=== PATIENT | male | born 1965 | race Caucasian/White ===

== ENCOUNTER 2019-02-26 10:59 | Outpatient (REF) | payer MEDICAID, SELFPAY ==
[2019-02-26 21:53] LABS: ALT 105 U/L (12-78); AST 49 U/L (15-37); Albumin 3.6 g/dL (3.4-5.0); Alkaline Phosphatase 131 U/L (46-116); Anion Gap 10.5 mmol/L (3-11); BUN 11 mg/dL (7-18); Bilirubin, Total 0.9 mg/dL (0.2-1.0); CO2 26.5 mmol/L (21.0-32.0); CREATININE 0.83 mg/dL (0.70-1.30); Calcium 8.3 mg/dL (8.5-10.1); Calculated LDL 94; Chloride 102 mmol/L (98-107); Cholesterol 164 mg/dL (50-200); Glucose 147 mg/dL (70-100); HDL Cholesterol 37 mg/dL (40-60); Potassium 4.4 mmol/L (3.5-5.1); Sodium 139 mmol/L (136-145); Total Protein 6.8 g/dL (6.4-8.2); Triglyceride 168 mg/dL (30-150)
== END 2019-02-26 11:19 ==
LOC: NCHCN 10:59
PROVIDERS: PCP Family Medicine; Visit Provider Family Medicine
DX: R73.09 Other abnormal glucose (principal); I10 Essential (primary) hypertension; E78.5 Hyperlipidemia, unspecified
CPT/HCPCS: 80053; 80061; 83721

== ENCOUNTER 2019-05-22 15:20 | Outpatient (REF) | payer MEDICAID, SELFPAY | END 2019-05-22 15:40 | LOC: NCHCN 15:20 | PROVIDERS: PCP Family Medicine; Visit Provider Family Medicine | DX: L02.429 Furuncle of limb, unspecified (principal) | CPT/HCPCS: 87077; 87070; 87205 ==

== ENCOUNTER 2019-08-02 16:05 | Outpatient (REF) | payer MEDICAID, SELFPAY ==
[2019-08-02 20:55] LABS: Hemoglobin A1C 6.6 % (4.5-6.2)
[2019-08-02 20:56] LABS: ALT 64 U/L (16-63); AST 34 U/L (15-37); Albumin 3.8 g/dL (3.4-5.0); Alkaline Phosphatase 111 U/L (46-116); Anion Gap 9.9 mmol/L (3-11); BUN 11 mg/dL (7-18); Bilirubin, Total 0.5 mg/dL (0.2-1.0); CO2 27.1 mmol/L (21.0-32.0); Calcium 8.6 mg/dL (8.5-10.1); Chloride 101 mmol/L (98-107); Glucose 109 mg/dL (70-100); Potassium 4.7 mmol/L (3.5-5.1); Sodium 138 mmol/L (136-145)
[2019-08-02 21:32] LABS: NT-proBNP 62 pg/mL
[2019-08-06 10:49] LABS: Hepatitis C Ab w Rflx HCV PCR Negative (Negative)
== END 2019-08-02 16:25 ==
LOC: NCHCN 16:05
PROVIDERS: PCP Family Medicine; Visit Provider Family Medicine
DX: R06.09 Other forms of dyspnea (principal); E11.9 Type 2 diabetes mellitus without complications; I10 Essential (primary) hypertension; R79.89 Other specified abnormal findings of blood chemistry
CPT/HCPCS: 80053; 86803; 83036; 83880

== ENCOUNTER 2019-08-23 01:20 | Outpatient (CLI) | payer MEDICAID, SELFPAY ==
--- NOTE | 2019-08-23 14:00 | DI.US_ITS ---
APPROVED REPORT EXAM: Comprehensive 2D, Doppler, and color-flow Echocardiogram Patient Location: Out-Patient Manager Recruitment: Sabrina Aaron [facility] ([place]) Rhythm: NSR Indications: dyspnea on exertion. orthopenea r06.01, r06.09 Conclusion Left Ventricle : The left ventricle is normal. Mild left ventricular hypertrophy with slight sigmoid septum. The posterior wall thickness is mildly increased. Left ventricular systolic function is norm al. There is normal LV segmental wall motion. The left ventricular diastolic function is normal. LVEF is 65-70%. Right Ventricle : Right ventricle is dilated. The right ventricular systolic function is normal. Atria : Left atrium is moderately dilated. Right atrium is mildly dilated. Aortic Valve : Aortic valve is bicuspid but opens well. No aortic regurgitation is present. There is no hemodynamically significant aortic valvular stenosis. Mitral Valve : Mitral valve leaflets are mildly thickened. Trace to mild mitral regurgitation. No beatriz dence of mitral valve stenosis. Tricuspid Valve : The tricuspid valve is normal in structure. Trivial to mild tricuspid regurgitation . Great Vessels : The ascending aorta size is dilated (3.86cm). The IVC is mildly dilated and collapses >50% with inspiration. Estimated RVSP is 27-30 mmHg. There is no prior echocardiogram available for comparison. Wall motion Left Ventricle The left ventricle is normal. Left ventricular systolic function is normal. Mild left ventricular hyp ertrophy with slight sigmoid septum. The posterior wall thickness is mildly increased. There is marlo l LV segmental wall motion. The left ventricular diastolic function is normal. LVEF is 65-70%. Right Ventricle Right ventricle is dilated. The right ventricular systolic function is normal. Atria Left atrium is moderately dilated. Right atrium is mildly dilated. Aortic Valve Aortic valve is bicuspid but opens well. There is no hemodynamically significant aortic valvular sten osis. No aortic regurgitation is present. Mitral Valve Mitral valve leaflets are mildly thickened. No evidence of mitral valve stenosis. Trace to mild maday l regurgitation. Tricuspid Valve The tricuspid valve is normal in structure. Trivial to mild tricuspid regurgitation. Great Vessels The aortic root size is normal. The ascending aorta size is dilated (3.86cm). The IVC is mildly dilat ed and collapses >50% with inspiration. Estimated RVSP is 27-30 mmHg. Pericardium Prominent anterior epicardial fat pad is present. 2D Dimensions IVSd 1.20 cm M: 0.6-1.2 LV EDV A2C 114.60 mL PWd 1.15 cm M: 0.6 - 1.2 LV EDV A4C 94.20 mL LVDd 5.60 cm M: 4.2 - 5.8 LA Volume Index A4C 49.09 mL/m2 LVDs 3.45 cm M: 2.5 - 4.0 LA Area A4C 29.64 cm2 Aortic Root 3.50 cm M: 3.1 - 3.7 EF AP4 62.95 % RA Area A4C 23.27 cm2 EF AP2 72.43 % LVOT 2.05 cm (M/F) 1.5-2.5 EF BP 69.07 % Ascending Aorta 3.86 cm M: 2.6 - 3.4 LVEF (Teich) 67.86 % LVEF (Higgins's) 69.07 % M: 52 - 72 LV Volume 75.80 mL M: 62 - 150 LV Volume Index 31.06 mL/m2 M: 34 - 74 FS 38.25 % LV Diastology E/A Ratio 1.1 MED E' 0.12 (>0.07 m/s) LV E/e MED 6.15 (<14) LAT E' 0.13 (>0.1 m/s) LV E/e LAT 5.90 (<14) Pulm Vein s 0.66 m/s PV S/D Ratio 1.03 Pulm Vein d 0.64 m/s Pulm Vein a 0.29 m/s A-A Duration 132.60 msec Aortic Valve LVOT Area 3.46 cm2 LVOT Peak Partha. 1.75 m/s LVOT Mean Partha. 1.34 m/s LVOT Peak Gr. 12.30 mmHg BERTHA Vmax Index 1.34 cm2/m2 LVOT Mean Gr. 8.00 mmHg LVOT VTI 0.35 m BERTHA Mean Partha. Index 1.40 cm2/m2 AoV Peak Partha. 1.86 (0.5-1.3 m/s) AoV Mean Partha. 1.35 m/s AO Peak GR. 13.81 mmHg AO Mean GR. 8.11 (<5 mmHg) BERTHA (VTI) 3.62 (2.5-4.5 cm2) BERTHA (VTI) Index 1.49 cm/m2 Mitral Valve MV E Max Partha. 0.76 (0.4-1.3 m/s) MV A Velocity 0.70 (0.4-1.3 m/s) E/A Ratio 1.02 MV Decel. Time 206.90 (160-240 msec) MV PHT 60.01 msec MVA PHT 3.65 cm2 Tricuspid Valve TR P. Velocity 2.59 m/s TV Regurg Vmax 2.59 m/s RAP Estimate 8.00 mmHg RVSP 35.00 mmHg TR P. Gradient 26.85 mmHg
== END 2019-08-23 01:40 ==
PROVIDERS: PCP Family Medicine; Visit Provider Family Medicine
DX: R06.01 Orthopnea (principal); R06.09 Other forms of dyspnea; I51.7 Cardiomegaly; I34.0 Nonrheumatic mitral (valve) insufficiency; I10 Essential (primary) hypertension; E78.5 Hyperlipidemia, unspecified
CPT/HCPCS: 93306

== ENCOUNTER 2019-08-24 12:58 | Emergency (ER) | payer MEDICAID, SELFPAY ==
[2019-08-24 13:02] VITALS: BP 151/78; PULSE 71; RESP 16; TEMP 37; O2SAT 95
[2019-08-24 13:07] VITALS: RESP 18
--- NOTE | 2019-08-24 13:57 | W.ED.GENAD ---
Discharge Plan Disposition Patient Disposition: AGAINST MEDICAL ADVICE Discharge Details Chief Complaint: Chest Pain Clinical Impression: Speech abnormality, Chest pain Primary Care Provider: Mojgan Prater V ED Provider: Ameya Ernst Home Meds and New Rx's Prescriptions: No Action cyclobenzaprine 10 mg tablet 10 mg PO BID PRNRF: 0 trazodone 50 mg tablet 100 mg PO QHS PRNRF: 0 bupropion HCl [Wellbutrin SR] 100 mg tablet sustained-release 12 hr 100 mg PO BID RF: 0 gabapentin 300 mg capsule 600 mg PO BID RF: 0 ProAir HFA 90 mcg/actuation HFA aerosol inhaler 2 puff IH .COMPLEX PRNRF: 0 methadone 5 mg/5 mL solution 77 mg PO DAILY RF: 0 venlafaxine 75 MG tablet 75 mg PO DAILY RF: 0 simvastatin 40 MG tablet 40 mg PO DAILY RF: 0 risperidone [Risperdal] 2 MG tablet 2 mg PO .QHS RF: 0 atenolol 50 MG tablet 50 mg PO DAILY RF: 0 tramadol 50 MG tablet 50 mg PO BID PRN PRNQty: 7 RF: 0 Discharge Instructions Instructions: Against Medical Advice (ED) Additional Instructions: Please follow-up with your doctor. Call to schedule timely follow-up as soon as possible. Return to the ER at any time for further work-up and treatment as recommended. Referrals: Mojgan Prater MD [Primary Care Provider] - Medical Decision Making 13:55 --53-year-old male here with intermittent chest pain that occurred 5 days ago and again today. Episodes are brief lasting seconds. Patient also with difficulty with speech since initial episode of chest pain 5 days ago. States his speech is slow. Physical exam concerning for slowed stuttering speech and difficulty with rapid alternating movements. Consider CVA - will CT head. Screening ECG was reviewed and interpreted by me: Sinus rhythm 64 bpm, normal axis, no STEMI, nondiagnostic. I reviewed echocardiogram from yesterday as interpreted by cardiology: Conclusion Left Ventricle : The left ventricle is normal. Mild left ventricular hypertrophy with slight sigmoid septum. The posterior wall thickness is mildly increased. Left ventricular systolic function is normal. There is normal LV segmental wall motion. The left ventricular diastolic function is normal. LVEF is 65-70%. Right Ventricle : Right ventricle is dilated. The right ventricular systolic function is normal. Atria : Left atrium is moderately dilated. Right atrium is mildly dilated. Aortic Valve : Aortic valve is bicuspid but opens well. No aortic regurgitation is present. There is no hemodynamically significant aortic valvular stenosis. Mitral Valve : Mitral valve leaflets are mildly thickened. Trace to mild mitral regurgitation. No evidence of mitral valve stenosis. Tricuspid Valve : The tricuspid valve is normal in structure. Trivial to mild tricuspid regurgitation. Great Vessels : The ascending aorta size is dilated (3.86cm). The IVC is mildly dilated and collapses >50% with inspiration. Estimated RVSP is 27-30 mmHg. There is no prior echocardiogram available for comparison. -- cxr reviewed and interpreted by radiology: IMPRESSION: No acute pulmonary process. -- CT head was interpreted by radiology as no acute process. Labs reviewed and nondiagnostic. Plan for MRI to assess for CVA and admission. Patient agreeable to MRI but refusing admission. MRI could not be completed as result of claustrophobia. Patient wishing to leave AGAINST MEDICAL ADVICE. I had a discussion with the patient about my diagnostic/treatment plan. Patient declines plan and wishes to leave against medical advise. I reiterated my concerns to the patient and explained the risks of leaving prior to completion of workup and treatment. I specifically emphasized the possibility of life-threatening or lifestyle modifying disease that would not be appropriately treated if they leave. Patient verbalized understanding of my concerns and the potential for life threatening or lifestyle modifying disease. Patient has capacity to make informed decision. I again explained my concerns and urged the patient to stay for treatment as outlined. Patient continued to refuse. I then discussed potential less ideal alternatives to diagnostic/treatment plan as outlines and patient refused. I recommended that the patient follow-up with primary care physician DYLAN or return to the Emergency Department at any time for further treatment. HPI General Mode of arrival: ambulatory. Date/Time Provider Initiated Documentation: 08/24/19 13:29. Limitations to Documentation: no limitations. Information obtained by: patient. HPI Narrative: 53-year-old male here with intermittent chest pain that occurred 5 days ago and again today. Episodes are brief lasting seconds. Pain described as sharp and severe. Localized to central chest. He has no pain at this time. No associated leg swelling or calf pain. No shortness of breath. Patient also with difficulty with speech since initial episode of chest pain 5 days ago. States his speech is slow. He denies associated visual change or weakness. No numbness or tingling. Related Data Home Medications Medication Instructions Recorded Confirmed atenolol 50 mg PO DAILY 08/19/13 08/24/19 risperidone [Risperdal] 2 mg PO .QHS 08/19/13 08/24/19 simvastatin 40 mg PO DAILY 08/19/13 08/24/19 venlafaxine 75 mg PO DAILY 08/19/13 08/24/19 tramadol 50 mg PO BID PRN PRN #7 tab 12/29/16 08/24/19 albuterol sulfate 90 mcg/actuation 2 puff IH .COMPLEX PRN 11/08/18 08/24/19 aerosol inhaler bupropion HCl 100 mg tablet,12 hr 100 mg PO BID 11/08/18 08/24/19 sustained-release cyclobenzaprine 10 mg tablet 10 mg PO BID PRN tab 11/08/18 08/24/19 gabapentin 300 mg capsule 600 mg PO BID cap 11/08/18 08/24/19 methadone 5 mg/5 mL oral solution 77 mg PO DAILY ml 11/08/18 08/24/19 trazodone 50 mg tablet 100 mg PO QHS PRN tab 11/08/18 08/24/19 Previous Rx's Medication Instructions Recorded tramadol 50 mg PO BID PRN PRN #7 tab 12/29/16 Allergies Allergy/AdvReac Type Severity Reaction Status Date / Time mustard Allergy Severe Unverified 08/24/19 13:08 pregabalin [From Lyrica] Allergy Severe Unverified 08/24/19 13:08 hydrocodone AdvReac Intermediate Unverified 08/24/19 13:08 codeine AdvReac Nausea Unverified 08/24/19 13:08 tramadol AdvReac Nausea Unverified 08/24/19 13:08 General Stated Complaint: Chest Pain ELKE: 2 Review of Systems All systems reviewed & are unremarkable except as noted in HPI and below Constitutional Constitutional: Denies fever(s) Cardiovascular Cardiovascular: Reports as per HPI, Reports chest pain and Denies dyspnea Respiratory Respiratory: Denies dyspnea Gastrointestinal Gastrointestinal: Denies abdominal pain Neurologic Neurologic: Reports as per HPI [facility] Medical History Anxiety (Chronic) Cervicalgia (Acute) Encounter for smoking cessation counseling (Acute) Gingivitis (Acute) HTN (hypertension) (Chronic) Hyperlipidemia (Acute) Obesity (Chronic) Other injury of chest wall (Acute) Panic disorder (Acute) Preventative health care (Acute) PTSD (post-traumatic stress disorder) (Acute) Radiculopathy affecting upper extremity (Acute) Repetitive strain injury of shoulder (Acute) Spinal cord injuries (Acute) Substance abuse (Acute) Social History Smoking/Tobacco Use Status: Current every day Drug use: Occasionally Do you feel safe at home: Yes Do you feel safe in your relationship?: Yes Exam Const General: cooperative and no acute distress HENMT Head: normocephalic Mouth: moist mucous membranes Eyes Conjunctivae: normal conjunctivae EOM: EOM intact bilaterally Neck Neck: trachea midline and supple Resp Auscultation: clear to auscultation bilaterally, no rales, no rhonchi and no wheezes Cardio Jugular venous pressure: no JVD Rate: regular rate and not tachycardic Rhythm: regular rhythm GI Palpation: soft, not firm, no guarding, no masses, not rigid and nontender Skin General skin exam: no rashes or lesions noted Neuro General: alert, awake, oriented x3 and tone normal Cranial Nerves: CN's II-XI intact bilaterally Cognition: normal cognition Speech: abnormal speech (Slow with mild stuttering) Motor: muscle tone normal throughout and strength 5/5 throughout Sensory Exam: no sensory deficits noted Coordination: [id number] test normal and other (Rapid alternating movements slow) Extrem General: no calf tenderness and no edema Psych Mental Status: mental status grossly normal Speech and Movement: speech and movement normal Course Vital Signs Vital signs: Vital Signs Temperature 37.0 C 08/24/19 13:02 Pulse 71 08/24/19 13:02 Respiratory Rate 16 08/24/19 13:02 Blood Pressure 151/78 H 08/24/19 13:02 Pulse Oximetry 95 08/24/19 13:02 Temperature 37.0 C 08/24/19 13:02 Temperature Source Temporal Artery Scan 08/24/19 13:02 Pulse 71 08/24/19 13:02 Respiratory Rate 18 08/24/19 13:07 Respiratory Effort Non-Labored 08/24/19 13:07 Respiratory Depth Normal 08/24/19 13:07 Respiratory Pattern Normal 08/24/19 13:07 Blood Pressure 151/78 H 08/24/19 13:02 Blood Pressure Position Sitting 08/24/19 13:02 Pulse Oximetry 95 08/24/19 13:02 Oxygen Delivery Method Room Air 08/24/19 13:02 Oxygen Flow Rate 0 08/24/19 13:02 Pain Level 0 08/24/19 13:02
[2019-08-24 13:58] LABS: Abs Immature Grans 0.02 k/cumm (0.0-0.09); Absolute Basophil Count 0.04 k/cumm (0.0-0.2); Absolute Eosinophil Count 0.23 k/cumm (0.0-0.7); Absolute Lymphocyte Count 1.98 k/cumm (1.2-3.4); Absolute Monocyte Count 0.59 k/cumm (0.11-0.7); Absolute Neutrophil Count 7.11 k/cumm (1.2-6.7); Basophils % 0.4; Eosinophils % 2.3; HCT 52.1 % (40.0-50.0); HGB 17.1 g/dL (13.5-17.5); Immature Grans % 0.2; Lymphocytes % 19.9; Mean Corp. HGB Concentration 32.8 g/dL (32.0-36.0); Mean Corpuscular Hemoglobin 25.9 pg (27.0-33.0); Mean Corpuscular Volume 78.9 fL (80-95); Monocytes % 5.9; Neutrophils % 71.3; White Blood Cell Count 9.97 k/cumm (4.4-10.8)
--- NOTE | 2019-08-24 13:58 | DI.CT_ITS ---
EXAM: CT HEAD - STROKE PROTOCOL CLINICAL HISTORY: speech slowed, difficulty with rapid alt movements TECHNIQUE: Noncontrast COMPARISON: HEAD WITHOUT CONTRAST from 08/19/2013 FINDINGS: The ventricles and sulci are consistent with the patient's age. There are areas of decreased attenua tion in the white matter most suggestive of small vessel ischemic disease. No acute intracranial hem orrhage, midline shift or mass effect is present. The ventricles are intact. The basilar cisterns a re patent. There is mild mucosal thickening in the ethmoid air cells and maxillary sinuses. No flui d levels are seen. The mastoid air cells are well pneumatized. The calvarium is intact. IMPRESSION: No acute intracranial process. The findings were discussed with the Emergency Department on the date of the examination.
[2019-08-24 14:10] LABS: Diff Comment RBC Morph Reviewed; Platelet Count 183 x1000/uL (130-400)
[2019-08-24 14:11] LABS: Microcytosis 3+
--- NOTE | 2019-08-24 14:23 | DI.RAD_ITS ---
EXAM: XR CHEST 2V PA AND LATERAL INDICATION: chest pain. COMPARISON: CHEST 2 VIEWS PA,LAT from 07/18/2015 TECHNIQUE: 2D digital imaging was performed. FINDINGS: Heart size and pulmonary vasculature are within normal limits. The lungs are clear. No effusion or pneumothorax is identified. Degenerative changes are seen in the spine. Cervical spine surgery is n oted. IMPRESSION: No acute pulmonary process.
[2019-08-24 14:44] LABS: ALT 64 U/L (16-63); AST 32 U/L (15-37); Albumin 3.8 g/dL (3.4-5.0); Alkaline Phosphatase 119 U/L (46-116); Anion Gap 8.8 mmol/L (3-11); BUN 9 mg/dL (7-18); Bilirubin, Total 0.6 mg/dL (0.2-1.0); CO2 31.2 mmol/L (21.0-32.0); CREATININE 0.95 mg/dL (0.70-1.30); Calcium 8.8 mg/dL (8.5-10.1); Chloride 101 mmol/L (98-107); Glucose 171 mg/dL (74-106); Potassium 4.1 mmol/L (3.5-5.1); Sodium 141 mmol/L (136-145); Total Protein 7.9 g/dL (6.4-8.2)
[2019-08-24 14:45] LABS: Troponin I < 0.05 ng/Ml (<0.06)
--- NOTE | 2019-08-24 16:56 | DI.MRI_ITS ---
EXAM: MR LIMITED EXAM CLINICAL HISTORY: concern for cva, speech slowed. TECHNIQUE: A T2 sagittal sequence was performed. The patient was claustrophobic and could not clifton ate further imaging. COMPARISON: CT HEAD - STROKE PROTOCOL from 08/24/2019 FINDINGS: There is no gross evidence of a mass or acute infarct. There is mild atrophy and small foci of high signal in the white matter likely reflecting changes of microvascular disease. The orbits, pituitar y and mastoid air cells are unremarkable. There is minimal sinus mucosal thickening. The vascular f low voids are grossly intact. IMPRESSION: Limited exam. No acute abnormality is identified.
--- NOTE | 2019-08-24 18:33 | DI.VRAD_ITS ---
PROCEDURE INFORMATION: Exam: MR Head Without Contrast Exam date and time: 08/24/2019 5:56 PM Age: 53 years old Clinical history: Speech disturbance; Slurred speech; Additional info: PT only tolerated one sequence due to claustrophobia TECHNIQUE: Imaging protocol: MR of the head without contrast. COMPARISON: CT HEAD - STROKE PROTOCOL 08/24/2019 1:58 PM FINDINGS: Limitations: The study is limited due to incomplete examination from claustrophobia. Only sagittal T2 images were obtained. Brain: Evaluation of the sagittal T2 images demonstrate no gross abnormality, however this sequence does not fully evaluate for acute infarct. No large intracranial hemorrhage is seen. Ventricles: No definite ventriculomegaly. Bones/joints: Unremarkable. Soft tissues: Unremarkable. Sinuses: Normal as visualized. No acute sinusitis. Mastoid air cells: Normal as visualized. No mastoid effusion. Orbits: Unremarkable. IMPRESSION: Limited examination with only one sequence performed. No gross abnormalities seen, however cannot fully evaluate for acute infarct on this study. If there is further clinical concern a repeat study is recommended with appropriate sedation. Dictated and Authenticated by: Meli Yo MD. Ordering:LIZETTE Hou MD
== END 2019-08-24 17:35 | disposition left against medical advice (07) ==
PROVIDERS: Emergency Provider Student in an Organized Health Care Education/Training Program; PCP Family Medicine
DX: R07.9 Chest pain, unspecified (principal); R47.89 Other speech disturbances; Z53.29 Procedure and treatment not carried out because of patient's decision for other reasons; I10 Essential (primary) hypertension
CPT/HCPCS: 36415; 36416; 72141; 72146; 72148; 80053; 82962; 93005; 99285; 70450; 71046; 84484; 85025; 93010; 99284

== ENCOUNTER 2021-05-14 10:27 | Outpatient (CLI) | payer MEDICAID, SELFPAY ==
--- NOTE | 2021-05-14 10:15 | RT.EKG_ITS ---
APPROVED REPORT Exam: Resting ECG Reason for Exam: pain across R side chest- SOB, diaphoretic Patient Location: O HR:85 bpm ECG Measurements Heart Rate 85 AXIS AK 141 P 60 QRSd 84 QRS 46 QT 383 T 63 QTc 456 Conclusion Sinus rhythm...normal P axis, V-rate 60- 99 Supraventricular bigeminy...bigeminy string>4 w/ SV complexes
== END 2021-05-14 10:28 | disposition home or self-care (01) ==
LOC: DI.CM 10:28
PROVIDERS: PCP Family Medicine; Visit Provider Nurse Practitioner Family
DX: R07.89 Other chest pain (principal); R06.02 Shortness of breath; R61 Generalized hyperhidrosis
CPT/HCPCS: 93010

== ENCOUNTER 2021-05-14 11:14 | Inpatient (IN) | payer MEDICAID, SELFPAY ==
[2021-05-14] VITALS (38 sets, daily range): BP systolic 132–157; BP diastolic 67–117; PULSE 54–96; RESP 12–27; TEMP 36.4–36.7; O2SAT 82–99
--- NOTE | 2021-05-14 11:15 | RT.EKG_ITS ---
APPROVED REPORT Exam: Resting ECG Reason for Exam: chest pain Patient Location: E HR:90 bpm ECG Measurements Heart Rate 90 AXIS TN 144 P 53 QRSd 84 QRS 35 QT 382 T 62 QTc 467 Conclusion Sinus rhythm...normal P axis, V-rate 60- 99 Atrial premature complexes...SV complexes w/ short R-R intvls
--- NOTE | 2021-05-14 11:17 | DI.CT_ITS ---
Exam(s) CT CHEST W EXAM: CT CHEST W CLINICAL HISTORY: rt chest mass, productive cough. TECHNIQUE: Multi planar reconstructions were performed. CONTRAST MATERIAL: Omnipaque 350; 70 cc COMPARISON: No exams were available for comparison FINDINGS: CHEST: LUNGS: There is a noncalcified well-defined 7 x 6 millimeter subpleural nodule in the lateral basal s egment of the right lower lobe. Few small bullae are noted in the medial aspect of the right upper l obe. No other focal right lung findings. No pleural effusion. In the opposite-left lung there are no significant focal findings nor pleural effusion. No significant findings in the trachea and mainstem bronchi. No bronchiectasis MEDIASTINUM: There is no hilar nor mediastinal adenopathy. Visualized thyroid unremarkable.Few shoddy lymph nodes are noted in both axillary regions. CARDIAC: Heart size is normal. There is no pericardial effusion.Caliber of the thoracic aorta is wit hin normal limits. VISUALIZED UPPER ABDOMEN:There are no significant adrenal masses. Hepatic steatosis is noted. Also cholelithiasis (no acute cholecystitis). OTHER: There is bilateral gynecomastia. There is also subcutaneous streaking over the anterior and r ight chest wall and there is deep collection subjacent to this area anterior to the ribs which measur es approximately 14 cm wide by 10 cm craniocaudal by 2.3 cm thick. Does not contain gas. Probable h ematoma. There is no radiopaque foreign body in this region. No prominent asymmetric axillary adeno swathi. OSSEOUS: No obvious rib fractures. Hardware noted in the lower cervical spine in the lower cervical spine.. IMPRESSION: 1. Over the anterior right chest wall there is a large deep collection measuring approximately 14 cm wide by 10 cm craniocaudal by 2.3 cm thick, probably hematoma. There is abundant streaking in the ov erlying soft tissues-probable cellulitis pattern. There is no radiopaque foreign body 2. Bilateral gynecomastia. 3. There is a solitary 7 x 6 millimeter noncalcified subpleural nodule in the right lower lobe-latera l basal segment. No other lung nodules and no infiltrates nor pleural effusions. No pneumothorax. Follow-up CT scan in 6 months recommended for the nodule described above in the right lower lobe. No intrathoracic adenopathy. RADIATION DOSE DELIVERED: 888.47mGy.cm Total DLP DATA REPOSITORY: All CT scans at this facility are submitted to the National Radiology Data Registry (NRDR) Dose Index Registry (DIR) with the [employer] ([employer]). RADIATION OPTIMIZATION: All CT scans at this facility use at least one of these dose optimization te chniques: automated exposure control; mA and/or kV adjustment per patient size (includes targeted exa ms where dose is matched to clinical indication); or iterative reconstruction.
[2021-05-14 11:43] LABS: Source Nasal/Nares
[2021-05-14] MEDS: Methadone Liquid 10 MG/ML 100 MG PO (12:01)
[2021-05-14] MEDS: Normal Saline Flush 10 ML SYR IVP ×3 (12:02→21:18)
[2021-05-14 12:17] LABS: Abs Immature Grans 0.12 10^3/uL (0.0-0.06); HCT 50.2 % (40.0-50.0); HGB 16.7 g/dL (13.5-17.5); MCH 25.3 pg (27.0-33.0); MCHC 33.3 % (32.0-36.0); MCV 75.9 fL (80-95); MPV 10.6 fL (8.0-11.0); Nucleated RBC 0 %; Platelet Count 259 10^3/uL (130-400); RBC 6.61 10^6/uL (4.36-5.78); RDW 13.1 % (11.8-14.1); RDW-SD 35.1 fL
[2021-05-14] MEDS: ALPRAZolam 0.25 MG TAB PO (12:21)
[2021-05-14] MEDS: Lactated Ringers 1,000 ML 150 ML IV (12:22)
[2021-05-14 12:30] LABS: ALT 27 U/L (16-63); AST 14 U/L (15-37); Albumin 3.2 g/dL (3.4-5.0); Alkaline Phosphatase 111 U/L (46-116); Anion Gap 6.6 mmol/L (3-11); BUN 9 mg/dL (7-18); Bilirubin, Total 1.5 mg/dL (0.2-1.0); CO2 29.4 mmol/L (21.0-32.0); Chloride 100 mmol/L (98-107); Glucose 188 mg/dL (74-106); Potassium 4.2 mmol/L (3.5-5.1); Sodium 136 mmol/L (136-145); Total Protein 7.9 g/dL (6.4-8.2)
[2021-05-14 12:31] LABS: Absolute Neutrophil Count 19.52 10^3/uL (1.2-6.7); Troponin I < 0.05 ng/mL (<0.06)
[2021-05-14 12:32] LABS: Absolute Lymphocyte Count 1.82 10^3/uL (1.2-3.4); Absolute Monocyte Count 1.36 10^3/uL (0.1-0.8); Atypical Lymphocytes % 2; Diff Comment Manual Differential; Microcytosis 3+
[2021-05-14 12:33] LABS: Hypochromasia 1+
[2021-05-14 12:46] LABS: COVID-19 PCR Negative (Negative)
[2021-05-14] MEDS: Omnipaque 350 MG/ML 100 ML BTL 70 ML IV (12:46)
[2021-05-14] MEDS: ceFAZolin 2 GM/50 ML BAG IVPB (13:53)
--- NOTE | 2021-05-14 13:53 | ED.GENADUL_ITS ---
Discharge Plan Disposition Patient Disposition: [facility] INPATIENT Condition: Serious Discharge Details Clinical Impression: Cellulitis of chest wall, Abscess Admit Date/Time: 05/14/21 13:52 Admit Provider: Brianda Stack Attending Provider: Brianda Stack Primary Care Provider: Mojgan Prater V ED Provider: Ameya Ernst Discharge Data Discharge Date/Time-TO BE ENTERED AT DEPARTURE: 05/14/21 15:05 Medical Decision Making 55-year-old male presents with 4 days of right anterior chest pain, tender with induration or subcutaneous collection under area of erythema right chest. Erythema is extended beyond the borders drawn by urgent care just prior to arrival. Concern for anterior chest wall cellulitis versus deeper space infection. Patient also with abscess right lateral face that is draining. Patient has also had recent productive cough. He is saturating well with no respiratory distress. Labs reviewed and reveal significant leukocytosis. CT of the chest was reviewed interpreted by radiology:IMPRESSION: 1. Over the anterior right chest wall there is a large deep collection measuring approximately 14 cm wide by 10 cm craniocaudal by 2.3 cm thick, probably hematoma. There is abundant streaking in the overlying soft tissues-probable cellulitis pattern. There is no radiopaque foreign body 2. Bilateral gynecomastia. 3. There is a solitary 7 x 6 millimeter noncalcified subpleural nodule in the right lower lobe-lateral basal segment. No other lung nodules and no infiltrates nor pleural effusions. No pneumothorax. Follow-up CT scan in 6 months recommended for the nodule described above in the right lower lobe. No intrathoracic adenopathy. Plan to treat with vancomycin IV and cefazolin IV. I called and spoke with Dr. Stack who will assess the patient for potential need for surgical intervention and admission for IV antibiotics. Patient had not had his prescribed methadone today or yes. Methadone 100 mg as prescribed was administered. Lab Data Lab results reviewed: Yes I reviewed the patient's lab results. HPI General Mode of arrival: ambulatory . Date/Time Provider Initiated Documentation: 05/14/21 11:16 . Limitations to Documentation: no limitations . Information obtained by: patient . HPI Narrative: 55-year-old male with multiple medical problems presents with chief complaint of right anterior chest pain. Patient states that for the past 4 days he has had right chest pain with associated swelling. Pain worse on palpation. He denies trauma. He has had r ecent coughing over the past week that is intermittently productive of sosa sputum. He also notes some swelling right face. No associated fever. Related Data Home Medications Medication Instructions Recorded Confirmed atenolol 50 mg PO DAILY 08/19/13 05/14/21 risperidone [Risperdal] 2 mg PO HS 08/19/13 05/14/21 albuterol sulfate 90 mcg/actuation 2 puff IH .COMPLEX PRN 11/08/18 05/14/21 aerosol inhaler cyclobenzaprine 10 mg tablet 10 mg PO BID PRN PRN tab 11/08/18 05/14/21 gabapentin 300 mg capsule 900 mg PO BID cap 11/08/18 05/14/21 trazodone 50 mg tablet 50 - 100 mg PO HS PRN PRN tab 11/08/18 05/14/21 [facility] Verio test strips 05/14/21 05/14/21 atorvastatin 40 mg PO DAILY 05/14/21 05/14/21 blood-glucose meter [[facility] 05/14/21 05/14/21 UltraMini] hydrochlorothiazide 25 mg PO DAILY 05/14/21 05/14/21 lancets [[employer] UltraSoft 05/14/21 05/14/21 Lancets] metformin 500 mg PO DAILY 05/14/21 05/14/21 methadone 5 mg/5 mL oral solution 100 mg PO DAILY ml 05/14/21 05/14/21 venlafaxine 150 mg PO DAILY 05/14/21 05/14/21 famotidine 40 mg PO HS #30 tab 05/17/21 oxycodone 5 mg tablet 10 mg PO Q6H PRN #20 tab MDD 8 05/17/21 tabs a day sulfamethoxazole-trimethoprim 1 tab PO Q12H #24 tab 05/17/21 [Bactrim DS] Previous Rx's Medication Instructions Recorded famotidine 40 mg PO HS #30 tab 05/17/21 oxycodone 5 mg tablet 10 mg PO Q6H PRN #20 tab MDD 8 05/17/21 tabs a day sulfamethoxazole-trimethoprim 1 tab PO Q12H #24 tab 05/17/21 [Bactrim DS] Allergies Allergy/AdvReac Type Severity Reaction Status Date / Time mustard Allergy Severe Unverified 05/14/21 10:09 pregabalin [From Lyrica] Allergy Severe Unverified 05/14/21 10:09 venom-wasp Allergy Intermediate Verified 05/14/21 10:09 hydrocodone AdvReac Intermediate upset Unverified 05/14/21 10:11 stomach codeine AdvReac Nausea Unverified 05/14/21 10:09 tramadol AdvReac Nausea Unverified 05/14/21 10:09 General Stated Complaint: GenMedical ELKE: 2 Review of Systems All systems reviewed & are unremarkable except as noted in HPI and below Constitutional Constitutional: Denies fever(s) Integumentary/Breasts Skin/Breast: Reports as per HPI [facility] Medical History Anxiety Cervicalgia Encounter for smoking cessation counseling Gingivitis HTN (hypertension) Hyperlipidemia Obesity Other injury of chest wall Panic disorder Preventative health care PTSD (post-traumatic stress disorder) Radiculopathy affecting upper extremity Repetitive strain injury of shoulder Spinal cord injuries Substance abuse Social History Smoking/Tobacco Use Status: Current every day Smoking risk assessment performed?: Yes Alcohol Intake: former Drug use: Occasionally Substance use type: marijuana and crack/cocaine Details: crack--2 days ago-smoked Do you feel safe at home: Yes Do you feel safe in your relationship?: Yes Exam Const General: cooperative and no acute distress HENMT Head: normocephalic and atraumatic Mouth: moist mucous membranes Eyes Conjunctivae: normal conjunctivae Sclera: normal sclerae Neck Neck: trachea midline and supple Chest Chest: no crepitus and tenderness (Right anterior lateral chest) Resp Auscultation: clear to auscultation bilaterally, no rales, no rhonchi and no wheezes Cardio Jugular venous pressure: no JVD Rate: regular rate and not tachycardic Rhythm: regular rhythm GI Palpation: soft, not firm, no guarding, no masses, not rigid and nontender Skin Rashes: rashes noted (Right anterior chest erythema outlined by urgent care) Other: 2 cm draining abscess right face pre-auricular Neuro General: patient alert, patient awake, patient oriented x3 and tone normal Extrem General: no edema Psych Appearance: grossly normal Mental Status: mental status grossly normal Course Vital Signs Vital signs: Vital Signs Temperature 36.7 C 05/14/21 11:25 Pulse 91 H 05/14/21 11:25 Respiratory Rate 22 05/14/21 11:25 Blood Pressure 157/79 H 05/14/21 11:25 Pulse Oximetry 98 05/14/21 11:25 Temperature 36.7 C 05/14/21 11:25 Temperature Source Temporal Artery Scan 05/14/21 11:25 Pulse 72 05/14/21 12:46 Pulse 73 05/14/21 13:40 Respiratory Rate 16 05/14/21 13:40 Respiratory Effort Non-Labored 05/14/21 11:38 Respiratory Depth Normal 05/14/21 11:38 Respiratory Pattern Normal 05/14/21 11:38 Blood Pressure 145/117 H 05/14/21 12:46 Blood Pressure Mean 123 05/14/21 12:46 Blood Pressure Position Supine 05/14/21 11:25 Pulse Oximetry 96 05/14/21 13:40 Oxygen Delivery Method Room Air 05/14/21 11:25 Oxygen Flow Rate 0 05/14/21 11:25 Pain Level 7 05/14/21 11:25 Lab/Test Results Lab/Test Results: Laboratory Tests Range/Units 05/14/21 05/14/21 05/14/21 11:40 12:00 12:00 WBC (4.4-10.8) 10^3/uL 22.70 H RBC (4.36-5.78) 10^6/uL 6.61 H Hgb (13.5-17.5) g/dL 16.7 Hct (40.0-50.0) % 50.2 H MCV (80-95) fL 75.9 L MCH (27.0-33.0) pg 25.3 L MCHC (32.0-36.0) % 33.3 RDW (11.8-14.1) % 13.1 Plt Count (130-400) 10^3/uL 259 MPV (8.0-11.0) fL 10.6 Immature Gran % 0.0 Neutrophils % 86.0 Lymphocytes % 6.0 Atypical Lymphs % 2 Monocytes % 6.0 Eosinophils % 0.0 Basophils % 0.0 Nucleated RBC % % 0 Absolute Neutrophils (1.2-6.7) 10^3/uL 19.52 H Absolute Lymphocytes (1.2-3.4) 10^3/uL 1.82 Absolute Monocytes (0.1-0.8) 10^3/uL 1.36 H Absolute Eosinophils (0.0-0.7) 10^3/uL 0.00 Absolute Basophils (0.0-0.2) 10^3/uL 0.00 RBC Morphology See Below Hypochromasia 1+ Microcytosis 3+ Sodium (136-145) mmol/L 136 Potassium (3.5-5.1) mmol/L 4.2 Chloride (98-107) mmol/L 100 Carbon Dioxide (21.0-32.0) mmol/L 29.4 Anion Gap (3-11) mmol/L 6.6 BUN (7-18) mg/dL 9 Creatinine (0.70-1.30) mg/dL 1.0 Estimated GFR/1.73 m2 (mL/min/1.73m2) >= 60.00 Glucose (74-106) mg/dL 188 H Calcium (8.5-10.1) mg/dL 9.0 Total Bilirubin (0.2-1.0) mg/dL 1.5 H AST (15-37) U/L 14 L ALT (16-63) U/L 27 Alkaline Phosphatase (46-116) U/L 111 Troponin I (<0.06) ng/mL < 0.05 Total Protein (6.4-8.2) g/dL 7.9 Albumin (3.4-5.0) g/dL 3.2 L COVID-19 Source Nasal/Nares SARS-CoV-2 (PCR) (Negative) Negative
[2021-05-14] MEDS: VANCOMYCIN/WATER (PEG) 2 GM/400 ML BAG IVPB (14:34)
[2021-05-14 15:24] LABS: C-Reactive Protein 17.26 mg/dL (0.0-0.3)
[2021-05-14] MEDS: Normal Saline 1,000 ML 100 ML IV (16:50)
[2021-05-14] MEDS: Acetaminophen 500 MG TAB 1000 MG PO ×2 (17:29→23:44)
[2021-05-14] MEDS: Enoxaparin 40 MG/0.4 ML SYR SC (18:00)
--- NOTE | 2021-05-14 20:54 | W.PM.HP.N ---
Date of service: 05/14/21 Time of Service: 16:00 Assessment and Plan Assessment and plan (1) Type II diabetes mellitus: Status: Acute (2) PTSD (post-traumatic stress disorder): Status: Acute (3) Radiculopathy affecting upper extremity: Status: Acute (4) Substance abuse: Status: Acute (5) Hyperlipidemia: Status: Acute (6) HTN (hypertension): Status: Chronic (7) CVA (cerebrovascular accident): Status: Chronic (8) Cellulitis of chest wall: Status: Acute (9) Community acquired pneumonia: Status: Acute (10) S/P shoulder replacement: Status: Acute (11) S/P cervical spinal fusion: Status: Acute (12) Infected hematoma: Status: Acute Assessment and plan: -Patient is admitted for IV antibiotics. -He will need to go for incision and drainage. Informed consent is obtained explaining risks and benefits of procedure including but not limited to: Bleeding, infection, pneumonia, blood clots, complications from anesthesia including IL and CVA. We will need to heal by secondary intent. He will have a wound VAC. It will be quite a large scar. -I do not have an etiology for why the patient has developed this. Although he has limited memory of the past 48 hours. -CT scan does not show any signs of pneumo Monia. The sputum may simply have been from bronchial irritation from 48 hours of smoking crack cocaine. -A control of his diabetes -Supportive care -Patient has chronic pain issues and is going to probably have issues with pain control. History of Present Illness His Covid test was negative his Covid test was negative Narrative: 55-year-old male with multiple medical problems presents with chief complaint of right anterior chest pain. Patient states that for the past 4 days he has had right chest pain with associated swelling. Pain worse on palpation. He denies trauma. He has had recent coughing over the past week that is intermittently productive of sosa sputum. He also notes some swelling right face. No associated fever Patient has been smoking crack for the past 48 hours. He has not taken any of his medications in the past 48 hours. He says he did not fall and denies any trauma. But, he does not have real good recollection of the past 48 hours. He does not drugs. He is not on any blood thinners. He is not on aspirin daily or does not take excessive amount of NSAIDs. CT was done in the ER and reviewed. In light of the acute infection this fluid collection will need to be drained. Risks include bleeding, infection, pneumonia, blood clots, and will be large scar. He will need to wear wound VAC. He also has associated pneumonia which we are treating with IV antibiotics. He has risk factors for MRSA, although he has never had MRSA in the past. He has had no problems with anesthesia in the past. He smokes requires a pack a day. Occasionally smokes crack. He had a stroke 2 years ago but has no residual symptoms. He has not had a heart attack. He is diabetic and hypertensive and has chronic pain syndrome. He also has a history of EtOH abuse. His Covid test was negative I did personally review his chest x-ray. There is a 12 x 14 cm fluid collection. There is no signs of any pneumonia. He does have signs of COPD. Review of Systems All systems reviewed & are unremarkable except as noted in HPI and below Integumentary/Breasts Comments: Erythema and tenderness over right lower chest right upper quadrant Multiple scars on his left arm and chest from a chainsaw accident Multiple wounds on his right neck. Patient is uncertain what these are from. They could be dang or they could be insect bites that were scratched [facility] Medical History Anxiety Cervicalgia Encounter for smoking cessation counseling Gingivitis HTN (hypertension) Hyperlipidemia Obesity Other injury of chest wall Panic disorder Preventative health care PTSD (post-traumatic stress disorder) Radiculopathy affecting upper extremity Repetitive strain injury of shoulder Spinal cord injuries Substance abuse Social History Smoking/Tobacco Use Status: Current every day Smoking risk assessment performed?: Yes Alcohol Intake: former Drug use: Occasionally Substance use type: marijuana and crack/cocaine Details: crack--2 days ago-smoked Do you feel safe at home: Yes Do you feel safe in your relationship?: Yes Meds Allergies and Home Medications Allergies Allergy/AdvReac Type Severity Reaction Status Date / Time mustard Allergy Severe Unverified 05/14/21 10:09 pregabalin [From Lyrica] Allergy Severe Unverified 05/14/21 10:09 venom-wasp Allergy Intermediate Verified 05/14/21 10:09 hydrocodone AdvReac Intermediate upset Unverified 05/14/21 10:11 stomach codeine AdvReac Nausea Unverified 05/14/21 10:09 tramadol AdvReac Nausea Unverified 05/14/21 10:09 Home Medications Medication Instructions Recorded Confirmed Type atenolol 50 mg PO DAILY 08/19/13 05/14/21 History risperidone [Risperdal] 2 mg PO HS 08/19/13 05/14/21 History albuterol sulfate 90 mcg/actuation 2 puff IH .COMPLEX PRN 11/08/18 05/14/21 History aerosol inhaler cyclobenzaprine 10 mg tablet 10 mg PO BID PRN PRN tab 11/08/18 05/14/21 History gabapentin 300 mg capsule 900 mg PO BID cap 11/08/18 05/14/21 History trazodone 50 mg tablet 50 - 100 mg PO HS PRN PRN tab 11/08/18 05/14/21 History atorvastatin 40 mg PO DAILY 05/14/21 05/14/21 [facility] blood [facility] 05/[facility] 05/14/21 History Verio test strips] [facility]glucose [facility] 05/14/21 05/14/21 History UltraMini] hydrochlorothiazide 25 mg PO DAILY 05/14/21 05/14/21 History lancets [facility] 05/14/21 05/14/21 History Lancets] metformin 500 mg PO DAILY 05/14/21 05/14/21 History methadone 5 mg/5 mL oral solution 100 mg PO DAILY ml 05/14/21 05/14/21 History venlafaxine 150 mg PO DAILY 05/14/21 05/14/21 History Exam Const General: cooperative, no acute distress and disheveled Orientation: alert, awake and oriented x3 Other: Appears much older than his stated age [facility] Ears: hearing grossly normal bilaterally General nose exam: external nose normal Teeth and gingiva: poor dentition Eyes Other: No jaundice Neck Other: Multiple open pustules. Patient denies shooting drugs. He is very needle phobic. Patient says he has never had MRSA. They look to be swollen ulcerated lymph nodes. A culture is to. Neck images: 1. Multiple open pustules Resp Effort & Inspection: normal respiratory effort and able to speak in complete sentences Percussion: percussion normal Other: Patient has a productive cough. This is cultured. There is no wheeze or rhonchi Cardio Rate: regular rate Rhythm: regular rhythm GI Palpation: soft Auscultation: normal bowel sounds Abdomen image: 1. Irregular shaped area of redness and swelling. There is no crepitus. It is tender. There is no open draining areas on the abdomen Extrem General: no clubbing, cyanosis or edema Other: Changes consistent with osteoarthritis in his large joints Results Labs Result diagrams: 05/14/21 12:00 05/14/21 12:00 Labs: Laboratory Results - last 24 hr 05/14/21 05/14/21 05/14/21 11:40 12:00 12:00 WBC 22.70 H RBC 6.61 H Hgb 16.7 Hct 50.2 H MCV 75.9 L MCH 25.3 L MCHC 33.3 RDW 13.1 Plt Count 259 MPV 10.6 Immature Gran % 0.0 Neutrophils % 86.0 Lymphocytes % 6.0 Atypical Lymphs % 2 Monocytes % 6.0 Eosinophils % 0.0 Basophils % 0.0 Nucleated RBC % 0 Absolute Neutrophils 19.52 H Absolute Lymphocytes 1.82 Absolute Monocytes 1.36 H Absolute Eosinophils 0.00 Absolute Basophils 0.00 RBC Morphology See Below Hypochromasia 1+ Microcytosis 3+ Sodium 136 Potassium 4.2 Chloride 100 Carbon Dioxide 29.4 Anion Gap 6.6 BUN 9 Creatinine 1.0 Estimated GFR/1.73 m2 >= 60.00 Glucose 188 H Calcium 9.0 Total Bilirubin 1.5 H AST 14 L ALT 27 Alkaline Phosphatase 111 Troponin I < 0.05 C-Reactive Protein Total Protein 7.9 Albumin 3.2 L COVID-19 Source Nasal/Nares SARS-CoV-2 (PCR) Negative 05/14/21 05/14/21 12:00 13:54 WBC RBC Hgb Hct MCV MCH MCHC RDW Plt Count MPV Immature Gran % Neutrophils % Lymphocytes % Atypical Lymphs % Monocytes % Eosinophils % Basophils % Nucleated RBC % Absolute Neutrophils Absolute Lymphocytes Absolute Monocytes Absolute Eosinophils Absolute Basophils RBC Morphology Hypochromasia Microcytosis Sodium Potassium Chloride Carbon Dioxide Anion Gap BUN Creatinine Estimated GFR/1.73 m2 Glucose Calcium Total Bilirubin AST ALT Alkaline Phosphatase Troponin I C-Reactive Protein 17.26 H Total Protein Albumin COVID-19 Source Cancelled SARS-CoV-2 (PCR) Cancelled Last Vital Signs Temp 36.4 C L 05/14/21 15:28 Pulse 70 05/14/21 15:28 Resp 15 05/14/21 15:28 BP 143/83 H 05/14/21 15:28 Pulse Ox 95 05/14/21 15:28
[2021-05-14] MEDS: risperiDONE 1 MG TAB 2 MG PO (21:18)
[2021-05-14] MEDS: Gabapentin 300 MG CAP 900 MG PO (21:19)
[2021-05-14] MEDS: Cyclobenzaprine 10 MG TAB PO (21:25)
[2021-05-15] VITALS (10 sets, daily range): BP systolic 90–138; BP diastolic 50–86; PULSE 50–78; RESP 11–20; TEMP 36.3–36.5; O2SAT 96–100; BMI 34.0
[2021-05-15] MEDS: VANCOMYCIN/WATER (PEG) 1.25 GM/250 ML BAG IV ×3 (02:04→17:25)
[2021-05-15] MEDS: Normal Saline Flush 10 ML SYR IVP ×2 (02:05→22:58)
[2021-05-15] MEDS: Methadone Liquid 10 MG/ML 100 MG PO (07:55)
[2021-05-15] MEDS: Atenolol 50 MG TAB PO (07:56)
[2021-05-15] MEDS: Gabapentin 300 MG CAP 900 MG PO ×2 (07:56→20:00)
--- NOTE | 2021-05-15 09:13 | ANES.PREOP_ITS ---
General Info Date of Service Date Performed: 05/15/21 Height: 6 ft Weight: 113.6 kg Body Mass Index (BMI): 34.0 Surgical Procedure: Operation Date: 05/15/21 12:10 Proposed Procedures Side Surgeon p Debridement chest wall Brianda Stack, Meds Allergies and Home Medications Allergies Allergy/AdvReac Type Severity Reaction Status Date / Time mustard Allergy Severe Unverified 05/14/21 10:09 pregabalin [From Lyrica] Allergy Severe Unverified 05/14/21 10:09 venom-wasp Allergy Intermediate Verified 05/14/21 10:09 hydrocodone AdvReac Intermediate upset Unverified 05/14/21 10:11 stomach codeine AdvReac Nausea Unverified 05/14/21 10:09 tramadol AdvReac Nausea Unverified 05/14/21 10:09 Home Medication Medication Instructions Recorded atenolol 50 mg PO DAILY 08/19/13 risperidone [Risperdal] 2 mg PO HS 08/19/13 albuterol sulfate 90 mcg/actuation 2 puff IH .COMPLEX PRN 11/08/18 aerosol inhaler cyclobenzaprine 10 mg tablet 10 mg PO BID PRN PRN tab 11/08/18 gabapentin 300 mg capsule 900 mg PO BID cap 11/08/18 trazodone 50 mg tablet 50 - 100 mg PO HS PRN PRN tab 11/08/18 atorvastatin 40 mg PO DAILY 05/14/21 blood sugar diagnostic [[facility] 05/14/21 Verio test strips] [facility]glucose meter [facility] UltraMini] hydrochlorothiazide 25 mg PO DAILY 05/14/21 lancets [[facility] 05/14/21 Lancets] metformin 500 mg PO DAILY 05/14/21 methadone 5 mg/5 mL oral solution 100 mg PO DAILY ml 05/14/21 venlafaxine 150 mg PO DAILY 05/14/21 Current Visit Medications: Current Medications Generic Name Dose Route Start Last Admin Trade Name Freq PRN Reason Stop Dose Admin Acetaminophen 1,000 mg 05/14/21 16:00 05/14/21 23:44 Acetaminophen 500 Mg Tab PO 1,000 mg Q8H TEMITOPE Administration Albuterol Sulfate 2.5 mg 05/14/21 13:52 Albuterol 2.5 Mg/3 Ml Inh Soln Vial UPD Q4H PRN PRN Albuterol Sulfate 2 puff 05/14/21 15:56 Albuterol Hfa 8 Gm 60 Puff Inh IH PRN PRN Atenolol 50 mg 05/15/21 08:30 05/15/21 07:56 Atenolol 50 Mg Tab PO 50 mg DAILY TEMITOPE Administration Atorvastatin Calcium 40 mg 05/15/21 08:30 05/15/21 07:56 Atorvastatin 40 Mg Tab PO Not Given DAILY TEMITOPE Cyclobenzaprine HCl 10 mg 05/14/21 15:56 05/14/21 21:25 Cyclobenzaprine 10 Mg Tab PO 10 mg BID PRN PRN Administration Dextrose 0 gm 05/14/21 16:21 Glucose 40% Oral Solution 15 Gm/37.5 Gm Tube PO DIRECTED PRN Dextrose/Water 0 gm 05/14/21 16:21 Dextrose 50%-Water 25 Gm/50 Ml Syr IVP DIRECTED PRN Enoxaparin Sodium 40 mg 05/14/21 18:00 05/14/21 18:00 Enoxaparin 40 Mg/0.4 Ml Syr SC 40 mg Q24H TEMITOPE Administration Gabapentin 900 mg 05/14/21 20:00 05/15/21 07:56 Gabapentin 300 Mg Cap PO 900 mg BID TEMITOPE Administration Hydrochlorothiazide 25 mg 05/15/21 08:30 05/15/21 07:56 Hydrochlorothiazide 25 Mg Tab PO Not Given DAILY TEMITOPE Sodium Chloride 500 mls @ 0 mls/hr 05/14/21 13:52 Saline 500ml Bag IV PRN PRN As Directed Sodium Chloride 1,000 mls @ 100 mls/hr 05/14/21 14:00 05/14/21 16:50 Saline 1000ml Bag IV 100 mls/hr INFUSION TEMITOPE Administration Piperacillin/Tazobactam/Dextrose 4.5 gm in 100 mls @ 25 mls/hr 05/14/21 22:00 05/15/21 06:31 Zosyn IVPB 25 mls/hr Q8H TEMITOPE Administration Protocol Vancomycin/PEG/NADA/Lysine/Water 1.25 gm in 250 mls @ 166.667 mls/hr 05/15/21 02:00 05/15/21 02:04 Vancocin Injection IV 166.667 mls/hr Q8H TEMITOPE Administration Protocol As Directed IV Miscellaneous Supplies 1 each 05/14/21 14:00 Iv Access IV DIRECTED [facility] Insulin Aspart 0 units 05/14/21 17:00 05/15/21 07:56 Insulin Aspart 300 Units/3 Ml Pen SC Not Given 0800,1200,1700 [facility] Protocol Methadone HCl 100 mg 05/15/21 08:30 05/15/21 07:55 Methadone Liquid 10 Mg/Ml PO 100 mg DAILY TEMITOPE Administration Morphine Sulfate 4 mg 05/14/21 16:33 Morphine 4 Mg/Ml Syr IVP Q1H PRN PRN Nicotine 14 mg 05/15/21 00:00 05/15/21 01:55 Nicotine 14 Mg/24 Hr Patch TD Not Given HS TEMITOPE Risperidone 2 mg 05/14/21 22:00 05/14/21 21:18 Risperidone 1 Mg Tab PO 2 mg HS TEMITOPE Administration Sodium Chloride 0 ml 05/14/21 13:52 05/15/21 02:05 Normal Saline Flush 10 Ml Syr IVP 10 ml PRN PRN Administration Trazodone HCl 0 mg 05/14/21 15:56 Trazodone 50 Mg Tab PO HS PRN PRN Venlafaxine HCl 150 mg 05/15/21 08:30 05/15/21 07:57 Venlafaxine 150 Mg Capcr PO Not Given DAILY TEMITOPE PFSH Active Problems Active Problems: Problem Status Onset Code Infected hematoma T14.8XXA, L08.9 S/P shoulder replacement Z96.619 S/P cervical spinal fusion Z98.1 Type II diabetes mellitus E11.9 PTSD (post-traumatic stress disorder) F43.10 Radiculopathy affecting upper extremity M54.10 Substance abuse F19.10 Hyperlipidemia E78.5 HTN (hypertension) I10 CVA (cerebrovascular accident) I63.9 Cellulitis of chest wall L03.313 Community acquired pneumonia J18.9 Medical History Medical History Anxiety Cervicalgia Encounter for smoking cessation counseling Gingivitis HTN (hypertension) Hyperlipidemia Obesity Other injury of chest wall Panic disorder Preventative health care PTSD (post-traumatic stress disorder) Radiculopathy affecting upper extremity Repetitive strain injury of shoulder Spinal cord injuries Substance abuse Tobacco Smoking/Tobacco Use Status: Current every day Alcohol Alcohol Intake: former Substance Use Substance use: Occasionally Substance use type: marijuana and crack/cocaine Details: crack--2 days ago-smoked Vital Signs and Lab Results Vital Signs Most Recent Vital Signs in EMR: Most Recent Vital Signs Temp Pulse Resp BP Pulse Ox 36.3 C L 78 20 138/86 96 05/15/21 07:29 05/15/21 07:29 05/15/21 07:29 05/15/21 07:29 05/15/21 07:29 Point of Care Results Point of Care Results: Finger Stick Blood Glucose 133 05/14/21 22:08 Lab Results Result Diagrams: 05/14/21 12:00 05/14/21 12:00 Blood Type / Crossmatch: No Data to Display Complete Blood Count: White Blood Count 22.70 10^3/uL (4.4-10.8) H 05/14/21 12:00 05/14/21 Red Blood Count 6.61 10^6/uL (4.36-5.78) H 05/14/21 12:00 05/14/21 Hemoglobin 16.7 g/dL (13.5-17.5) 05/14/21 12:00 05/14/21 Hematocrit 50.2 % (40.0-50.0) H 05/14/21 12:00 05/14/21 Platelet Count 259 10^3/uL (130-400) 05/14/21 12:00 05/14/21 Complete Metabolic Panel: Sodium Level 136 mmol/L (136-145) 05/14/21 12:00 05/14/21 Potassium Level 4.2 mmol/L (3.5-5.1) 05/14/21 12:00 05/14/21 Chloride Level 100 mmol/L (98-107) 05/14/21 12:00 05/14/21 Carbon Dioxide Level 29.4 mmol/L (21.0-32.0) 05/14/21 12:00 05/14/21 Blood Urea Nitrogen 9 mg/dL (7-18) 05/14/21 12:00 05/14/21 Creatinine 1.0 mg/dL (0.70-1.30) 05/14/21 12:00 05/14/21 Estimated GFR/1.73 m2 >= 60.00 (mL/min/1.73m2) 05/14/21 12:00 05/14/21 Calcium Level 9.0 mg/dL (8.5-10.1) 05/14/21 12:00 05/14/21 Albumin 3.2 g/dL (3.4-5.0) L 05/14/21 12:00 05/14/21 Glucose Level 188 mg/dL (74-106) H 05/14/21 12:00 05/14/21 C-Reactive Protein 17.26 mg/dL (0.0-0.3) H 05/14/21 12:00 05/14/21 Liver Function Panel: Alanine Aminotransferase (ALT/SGPT) 27 U/L (16-63) 05/14/21 12:00 05/14/21 Aspartate Amino Transf (AST/SGOT) 14 U/L (15-37) L 05/14/21 12:00 05/14/21 Coagulation Panel: No Data to Display Cardiac Panel: Troponin I < 0.05 ng/mL (<0.06) 05/14/21 12:00 05/14/21 Arterial Blood Gas: No Data to Display Venous Blood Gas: No Data to Display Pancreas Panel: No Data to Display Thyroid Panel: No Data to Display Infectious Disease: Coronavirus (COVID-19)(PCR) Negative (Negative) 05/14/21 11:40 05/14/21 Coronavirus 2019 Source Nasal/Nares 05/14/21 11:40 05/14/21 Blood Cultures: No Data to Display Toxicology Panel: No Data to Display Imaging and Studies Imaging and Studies EKG Summary: 05/14/21: Exam: Resting ECG Reason for Exam: chest pain Patient Location: E HR:90 bpm ECG Measurements Heart Rate 90 AXIS NV 144 P 53 QRSd 84 QRS 35 QT 382 T62 QTc 467 Conclusion Sinus rhythm...normal P axis, V-rate 60- 99 Atrial premature complexes...SV complexes w/ short R-R intvls Echocardiogram Summary: 08/2019: Conclusion Left Ventricle : The left ventricle is normal. Mild left ventricular hypertrophy with slight sigmoid septum. The posterior wall thickness is mildly increased. Left ventricular systolic function is normal. There is normal LV segmental wall motion. The left ventricular diastolic function is normal. LVEF is 65-70%. Right Ventricle : Right ventricle is dilated. The right ventricular systolic function is normal. Atria : Left atrium is moderately dilated. Right atrium is mildly dilated. Aortic Valve : Aortic valve is bicuspid but opens well. No aortic regurgitation is present. There is no hemodynamically significant aortic valvular stenosis. Mitral Valve : Mitral valve leaflets are mildly thickened. Trace to mild mitral regurgitation. No evidence of mitral valve stenosis. Tricuspid Valve : The tricuspid valve is normal in structure. Trivial to mild tricuspid regurgitation. Great Vessels : The ascending aorta size is dilated (3.86cm). The IVC is mildly dilated and collapses >50% with inspiration. Estimated RVSP is 27-30 mmHg. There is no prior echocardiogram available for comparison. Anesthesia Assessment and Plan Anesthesia History Personal History: No History of Anesthesia Complications Family History: No Family History of Anesthesia Complications Exercise Tolerance Exercise Tolerance: Metabolic Equivalents>4 Pertinent Negatives Pertinent Negatives: No Symptoms of GERD Cardiac & Pulmonary Exam Cardiac Exam: Normal S1/S2 Heart Sounds Pulmonary Exam: Clear Bilateral Breath Sounds Airway Exam Known Difficult Airway: No Mallampati Class: 1 Mouth Opening: Normal (> 3cm) Thyromental Distance: Greater than 3 cm Neck Range of Motion: Full ROM Neck Circumference: Normal Teeth Condition: Normal Dentition ASA Classification ASA Score: ASA 3 Emergency Case?: No NPO Status NPO Status: NPO Clears >2 hours, Solids >8 hours Anesthesia Plan Resuscitation Status: Full Code Anesthesia Technique: General Anesthesia Airway Planned: Endotracheal Tube Monitors Used: Standard Monitors
--- NOTE | 2021-05-15 09:57 | INITIAL_ITS ---
- If Service Date Differs Date of service: 05/15/21 Time of Service: 09:57 Care Management Initial Assess REASON FOR HOSPITALIZATION:: cellulitis PAST MEDICAL HISTORY/PAST SURGICAL HISTORY:: Medical History . Anxiety. Cervicalgia. Encounter for smoking cessation counseling. Gingivitis. HTN (hypertension). Hyperlipidemia. Obesity. Other injury of chest wall. Panic disorder. Preventative health ca re. PTSD (post-traumatic stress disorder). Radiculopathy affecting upper extremity. Repetitive strain injury of shoulder. Spinal cord injuries. Substance abuse PREVIOUS FUNCTIONAL STATUS/SOCIAL/FAMILY SUPPORTS:: Aleksandr lives alone in [place], [place] He has 4 children and 6 grandchildren. He is independent at baseline and receives no community services. Aleksandr is not currently employed as he is disabled and is unable to drive. CURRENT FUNCTIONAL STATUS:: Aleksandr was sitting up in bed when CM met with him. He had just returned from surgery and informed CM that he is hungry. Fortunately dinner was about to be served. Aleksandr shared that he plans to stay with his cousin when discharged for a couple of weeks as he lives alone. Artis does not anticipate the need for any services but is open to home health if needed. ADVANCE DIRECTIVES:: none on file - given a copy of [place] AD forms by CM Has patient been provided with info about the portal/API?: Yes Did the patient sign up for the portal?: No CODE STATUS:: Full Code INSURANCE COVERAGE / FINANCIAL ISSUES:: Medicaid CURRENT HOME/COMMUNITY SERVICES/EQUIPMENT:: none PRIMARY CARE PHYSICIAN:: Mojgan Prater POTENTIAL DISCHARGE NEEDS:: Follow up with PCP, surgeon and plan of care PATIENT/FAMILY EDUCATION NEEDS:: Review of discharge instructions, medications, activity, follow up plan,. Ask Me Three TRANSPORTATION:: via private vehicle PLAN:: Aleksandr will be discharged to his cousin's home when medically ready. He anticipates being in the hospital for another couple of days. He will transport with family and follow up with his surgeon and PCP. CM will continue to support Aleksandr and his discharge needs.
[2021-05-15 10:48] LABS: Abs Immature Grans 0.08 10^3/uL (0.0-0.06); Absolute Basophil Count 0.09 10^3/uL (0.0-0.2); Absolute Neutrophil Count 13.73 10^3/uL (1.2-6.7); Basophils % 0.5; Eosinophils % 5.4; HCT 46.2 % (40.0-50.0); HGB 14.8 g/dL (13.5-17.5); Immature Grans % 0.4; Lymphocytes % 12.2; MPV 10.8 fL (8.0-11.0); Monocytes % 5.2; Neutrophils % 76.3; Nucleated RBC 0 %; Platelet Count 242 10^3/uL (130-400); RBC 5.92 10^6/uL (4.36-5.78); RDW 12.8 % (11.8-14.1); RDW-SD 36.5 fL
[2021-05-15 10:49] LABS: Absolute Eosinophil Count 0.97 10^3/uL (0.0-0.7); Absolute Monocyte Count 0.94 10^3/uL (0.1-0.8)
[2021-05-15 11:09] LABS: C-Reactive Protein 11.15 mg/dL (0.0-0.3); TSH (W/Ref FT4) 3.02 uIU/mL (0.36-3.74)
[2021-05-15 11:21] LABS: GGT 54 U/L (15-85)
--- NOTE | 2021-05-15 12:50 | NUR.NOTE ---
Nursing Note: Patient taken to pacu at 1245. Handoff given to Sita, answered her questions
[2021-05-15] MEDS: Lactated Ringers 1,000 ML 30 ML IV (13:20)
[2021-05-15] MEDS: Lidocaine 1% Multi-Dose 50 ML VIAL (13:47)
--- NOTE | 2021-05-15 14:03 | W.PM.OP ---
Date of service: 05/15/21 Time of Service: 14:03 Operative Note Operative Note DATE OF PROCEDURE: 05/15/21 PRE-OP DIAGNOSIS: infected hematoma POST-OP DIAGNOSIS: same PROCEDURE: I&D SURGEON: Brianda Stack ANESTHESIA TYPE: Local By Surgeon and General LMA/ETT Refer to Anesthesia Record ESTIMATED BLOOD LOSS: 4 PATHOLOGY: none sent Patient was transported to: PACU Patient's condition: stable Procedure Description: The patient was admitted to the hospital with an infected hematoma etiology. He was started on antibiotic. He is here today for irrigation debridement. Informed consent is obtained explaining risks and benefits of the procedure including but not limited to: Bleeding, infection, pneumonia, blood clots, will leave a scar, may need to heal by secondary intent, and complications of anesthesia, scarring and disfigurement and loss of function chronic pain or chronic numbness and other unforetold complications. The site is marked in preop. Ultrasound performed. Patient then brought back to the operative suite. Anesthesia is administered per the department of anesthesia. He is previously on antibiotics. Timeout is performed. Patient also has a lesion on his neck that is growing out MRSA. This is opened up and washed out with Betadine. And packed. The abdomen is then prepped and draped you sterile fashion using a ChloraPrep scrub solution. It is anesthetized with 30 cc of 1% lidocaine plain. A number 10 blade is used to make a 2 inch incision over the apex of the collection. Electrocautery was used to provide hemostasis and dissect down to 2 in and under the right muscle. Small amount of hematoma was encountered. This is irrigated. There is no gross purulence. The fascia was closed with 2-0 Vicryl. Subcutaneous tissue was closed with 2-0 Vicryl. Skin was loosely approximated with 2-0 nylon and Betadine soaked pledgets are placed between these sterile dressing is applied. Patient tolerated seizure well without complication and transferred to recovery room in good condition.
--- NOTE | 2021-05-15 14:50 | W.ANESPOSTOP ---
Postoperative Evaluation Date, Time and Location Date Performed: 05/15/21 Time Performed: 14:51 Patient Location: Day Surgery Unit Vital Signs Most Recent Imported Vital Signs: Most Recent Vital Signs Temp Pulse Resp BP Pulse Ox 36.5 C 67 18 99/50 L 96 05/15/21 14:27 05/15/21 14:27 05/15/21 14:27 05/15/21 14:27 05/15/21 14:27 Pain Score Most Recent Pain Score: Most Recent Pain Score Pain Level 0 05/15/21 14:27 Assessment Mental Status: Awake (Alert & Oriented to Patient Baseline) Airway and Respiratory Function: Patent airway with normal (patient baseline) respiratory exam Cardiovascular Function: Hemodynamically Stable Hydration Status: Adequately Hydrated Nausea & Vomiting: No Nausea or Vomiting Pain: Pain is tolerable per patient Peripheral Nerve Block: Patient did not receive a nerve block
[2021-05-15] MEDS: Normal Saline 1,000 ML 100 ML IV (15:27)
[2021-05-15] MEDS: Ketorolac 15 MG/ML VIAL IVP ×2 (15:27→22:57)
[2021-05-15] MEDS: Acetaminophen 500 MG TAB 1000 MG PO ×2 (15:55→20:00)
[2021-05-15 16:13] LABS: Hemoglobin A1C 6.9 % (<5.7)
[2021-05-15] MEDS: Enoxaparin 40 MG/0.4 ML SYR SC (17:24)
[2021-05-15] MEDS: risperiDONE 1 MG TAB 2 MG PO (22:58)
[2021-05-16] MEDS: Acetaminophen 500 MG TAB 1000 MG PO ×3 (01:27→16:01)
[2021-05-16] MEDS: VANCOMYCIN/WATER (PEG) 1.25 GM/250 ML BAG IV ×3 (02:38→18:31)
[2021-05-16] MEDS: Normal Saline Flush 10 ML SYR IVP (04:02)
[2021-05-16] MEDS: Ketorolac 15 MG/ML VIAL IVP ×3 (04:02→19:58)
[2021-05-16 07:51] VITALS: BP 110/64; PULSE 60; RESP 18; TEMP 37.3; O2SAT 98
[2021-05-16] MEDS: Methadone Liquid 10 MG/ML 100 MG PO (07:57)
[2021-05-16] MEDS: Gabapentin 300 MG CAP 900 MG PO ×2 (08:31→19:57)
[2021-05-16] MEDS: hydroCHLOROthiazide 25 MG TAB PO (08:32)
[2021-05-16] MEDS: Venlafaxine 150 MG CAPCR PO (08:32)
[2021-05-16] MEDS: Atenolol 50 MG TAB PO (08:32)
[2021-05-16] MEDS: Atorvastatin 40 MG TAB PO (08:32)
[2021-05-16 09:46] LABS: Abs Immature Grans 0.04 10^3/uL (0.0-0.06); Absolute Basophil Count 0.09 10^3/uL (0.0-0.2); Absolute Eosinophil Count 0.81 10^3/uL (0.0-0.7); Absolute Monocyte Count 0.95 10^3/uL (0.1-0.8); Basophils % 0.6; Eosinophils % 5.7; HCT 43.9 % (40.0-50.0); HGB 13.9 g/dL (13.5-17.5); Immature Grans % 0.3; MCH 24.8 pg (27.0-33.0); MCHC 31.7 % (32.0-36.0); MCV 78.3 fL (80-95); MPV 10.7 fL (8.0-11.0); Monocytes % 6.7; Neutrophils % 74.7; Nucleated RBC 0 %; Platelet Count 215 10^3/uL (130-400); RBC 5.61 10^6/uL (4.36-5.78); RDW 12.6 % (11.8-14.1); RDW-SD 35.8 fL; WBC 14.21 10^3/uL (4.4-10.8)
[2021-05-16 09:48] LABS: Absolute Lymphocyte Count 1.71 10^3/uL (1.2-3.4); Absolute Neutrophil Count 10.61 10^3/uL (1.2-6.7)
[2021-05-16 09:58] LABS: C-Reactive Protein 8.68 mg/dL (0.0-0.3)
[2021-05-16 10:01] LABS: Vancomycin, Trough 14.6 ug/mL (10.0-20.0)
--- NOTE | 2021-05-16 11:00 | W.PM.PROGNOT ---
Date of Service Date of service: 05/16/21 Time of Service: 11:00 Assessment and Plan Assessment and plan (1) Type II diabetes mellitus: Status: Acute (2) PTSD (post-traumatic stress disorder): Status: Acute (3) Radiculopathy affecting upper extremity: Status: Acute (4) Substance abuse: Status: Acute (5) Hyperlipidemia: Status: Acute (6) HTN (hypertension): Status: Chronic (7) CVA (cerebrovascular accident): Status: Chronic (8) Cellulitis of chest wall: Status: Acute Assessment and plan: Improved on antibiotics. Culture showed MRSA on his neck and wound Sensitive to Trimethoprim/sulfamethoxazole Plan is for discharge tomorrow on Antibiotics for total of 10 days Follow up in the office next week (9) Community acquired pneumonia: Status: Acute Assessment and plan: negative sputum No pneumonia on CT scan Incidental finding of a nodule. Will need follow up CT scan in 6 months. Will defer to PCP (10) S/P shoulder replacement: Status: Acute (11) S/P cervical spinal fusion: Status: Acute Subjective Subjective Interval history since last seen: Mr. Savage is doing well. He complains of pain when he moves. Explained that that is normal. No fevers overnight Labs reviewed. Leukocytosis improving, CRP improving Exam Const General: cooperative Orientation: alert and oriented x3 Resp Effort & Inspection: normal respiratory effort Auscultation: clear to auscultation bilaterally Cardio Rate: regular rate Rhythm: regular rhythm GI Inspection: normal to inspection and obesity Palpation: soft, no hepatosplenomegaly and nontender Auscultation: normal bowel sounds Abdomen image: 1. incision- rich removed. There is no erythema or induration. No discharge Objective Last Vital Signs Temp 99.1 F 05/16/21 07:51 Pulse 60 05/16/21 07:51 Resp 18 05/16/21 07:51 BP 110/64 05/16/21 07:51 Pulse Ox 98 05/16/21 07:51 Laboratory Results - last 24 hr 05/15/21 05/15/21 05/16/21 10:35 10:35 09:30 WBC RBC Hgb Hct MCV MCH MCHC RDW Plt Count MPV Immature Gran % Neutrophils % Lymphocytes % Monocytes % Eosinophils % Basophils % Nucleated RBC % Absolute Neutrophils Absolute Lymphocytes Absolute Monocytes Absolute Eosinophils Absolute Basophils Hemoglobin A1c 6.9 H GGT 54 C-Reactive Protein 11.15 H TSH 3.02 Vancomycin Trough 14.6 05/16/21 05/16/21 09:30 09:30 WBC 14.21 H RBC 5.61 Hgb 13.9 Hct 43.9 MCV 78.3 L MCH 24.8 L MCHC 31.7 L RDW 12.6 Plt Count 215 MPV 10.7 Immature Gran % 0.3 Neutrophils % 74.7 Lymphocytes % 12.0 Monocytes % 6.7 Eosinophils % 5.7 Basophils % 0.6 Nucleated RBC % 0 Absolute Neutrophils 10.61 H Absolute Lymphocytes 1.71 Absolute Monocytes 0.95 H Absolute Eosinophils 0.81 H Absolute Basophils 0.09 Hemoglobin A1c GGT C-Reactive Protein 8.68 H TSH Vancomycin Trough
[2021-05-16] MEDS: Insulin Aspart 300 UNITS/3 ML PEN SC (11:31)
[2021-05-16 15:52] VITALS: BP 125/79; PULSE 64; RESP 20; TEMP 36.4; O2SAT 97
[2021-05-16] MEDS: Enoxaparin 40 MG/0.4 ML SYR SC (18:30)
[2021-05-16] MEDS: oxyCODONE 10 MG TAB PO (18:44)
[2021-05-16] MEDS: risperiDONE 1 MG TAB 2 MG PO (21:55)
[2021-05-16] MEDS: Famotidine 20 MG TAB 40 MG PO (21:55)
[2021-05-17] MEDS: Acetaminophen 500 MG TAB 1000 MG PO ×2 (00:10→09:04)
[2021-05-17 00:13] VITALS: BP 145/89; PULSE 64; RESP 24; TEMP 37.2; O2SAT 97
[2021-05-17] MEDS: Ketorolac 15 MG/ML VIAL IVP ×3 (02:18→12:41)
[2021-05-17] MEDS: VANCOMYCIN/WATER (PEG) 1.25 GM/250 ML BAG IV ×2 (02:18→11:00)
[2021-05-17] MEDS: Normal Saline 500 ML IV (02:18)
[2021-05-17 07:15] LABS: Abs Immature Grans 0.06 10^3/uL (0.0-0.06); Absolute Lymphocyte Count 1.92 10^3/uL (1.2-3.4); Basophils % 0.6; Eosinophils % 6.1; HCT 40.1 % (40.0-50.0); HGB 13.1 g/dL (13.5-17.5); Immature Grans % 0.5; Lymphocytes % 15.1; MCH 25.5 pg (27.0-33.0); MCHC 32.7 % (32.0-36.0); MCV 78.2 fL (80-95); MPV 10.9 fL (8.0-11.0); Monocytes % 7.1; Neutrophils % 70.6; Nucleated RBC 0 %; Platelet Count 217 10^3/uL (130-400); RBC 5.13 10^6/uL (4.36-5.78); RDW 12.6 % (11.8-14.1); RDW-SD 35.8 fL; WBC 12.72 10^3/uL (4.4-10.8)
[2021-05-17 07:19] LABS: Absolute Basophil Count 0.08 10^3/uL (0.0-0.2); Absolute Eosinophil Count 0.78 10^3/uL (0.0-0.7); Absolute Neutrophil Count 8.98 10^3/uL (1.2-6.7)
[2021-05-17 07:30] VITALS: BP 149/89; PULSE 67; RESP 20; TEMP 37.1; O2SAT 96
[2021-05-17 07:38] LABS: C-Reactive Protein 7.25 mg/dL (0.0-0.3)
[2021-05-17] MEDS: Methadone Liquid 10 MG/ML 100 MG PO (07:45)
[2021-05-17] MEDS: Gabapentin 300 MG CAP 900 MG PO (09:04)
[2021-05-17] MEDS: Atorvastatin 40 MG TAB PO (09:05)
[2021-05-17] MEDS: Atenolol 50 MG TAB PO (09:05)
[2021-05-17] MEDS: hydroCHLOROthiazide 25 MG TAB PO (09:05)
[2021-05-17] MEDS: Venlafaxine 150 MG CAPCR PO (09:06)
[2021-05-17] MEDS: Insulin Aspart 300 UNITS/3 ML PEN SC (09:07)
[2021-05-17] MEDS: Normal Saline Flush 10 ML SYR IVP (09:08)
--- NOTE | 2021-05-17 10:22 | PDOC.DSDIS_ITS ---
Discharge Plan Disposition Patient Disposition: HOME Condition: Serious Discharge Details Reason For Visit: Soft Tissue Infection,Cellulitius Admit Date/Time: 05/14/21 13:52 Admit Provider: Brianda Stack Attending Provider: Brianda Stack Primary Care Provider: Mojgan Prater V Hospital Course Hospital Course: Mr. Streeter is a 55 year old male who was admitted with cellulitis of the right lower chest and upper abdomen. He was taken to the OR for incision and drainage. There was no pocket to drain. The skin was loosly re-approximated. The patients leukocytosis has been improving daily. He is eating and drinking. His pain is controlled. His Cultures showed MRSA sensitive to Bactrim. Discharge to home with Bactrim for 12 days, will give him 3 days of oxycodon for pain. Will give him some supplies for daily dressing changes. Home Meds and New Rx's Prescriptions: New famotidine 20 mg Tablet 40 mg PO HS Qty: 30 RF: 0 oxycodone 10 mg Tablet 10 mg PO Q6H PRN PRNQty: 10 RF: 0 sulfamethoxazole-trimethoprim [Bactrim DS] 800-160 mg tablet 1 tab PO Q12H Qty: 24 RF: 0 Continued cyclobenzaprine 10 mg tablet 10 mg PO BID PRN PRNRF: 0 trazodone 50 mg tablet 50 - 100 mg PO HS PRN PRNRF: 0 gabapentin 300 mg capsule 900 mg PO BID RF: 0 albuterol sulfate [ProAir HFA] 90 mcg/actuation HFA aerosol inhaler 2 puff IH .COMPLEX PRNRF: 0 methadone 5 mg/5 mL solution 100 mg PO DAILY RF: 0 risperidone [Risperdal] 2 MG tablet 2 mg PO HS RF: 0 atenolol 50 MG tablet 50 mg PO DAILY RF: 0 atorvastatin 40 mg tablet 40 mg PO DAILY RF: 0 hydrochlorothiazide 25 mg tablet 25 mg PO DAILY RF: 0 metformin 500 mg tablet extended release 24 hr 500 mg PO DAILY RF: 0 venlafaxine 150 mg capsule,extended release 24hr 150 mg PO DAILY RF: 0 (DME) lancets [[facility] UltraSoft Lancets] Misc MISCELLANEOUS RF: 0 (DME) OneTouch Verio test strips Strip MISCELLANEOUS RF: 0 (DME) blood-glucose meter [[facility] UltraMini] Kit MISCELLANEOUS RF: 0 Discharge Instructions Additional Instructions: Activity at Home after surgery: 1. Make sure you walk outside at least 4 times per day 2. You should be able to climb a flight of stairs 3. No driving while in pain or taking pain medications 4. No strenuous activity or heavy lifting for 4 weeks (open surgery) Diet, Nutrition, & wound healin. Avoid alcohol until after you are recovered from your surgery 2. Make sure to eat plenty of lean protein (meat, fish, eggs, cottage cheese, beans) 3. Eat a variety of fruits and vegetables. Eat plenty of high fiber foods to avoid constipation. 4. Drink plenty of liquids to stay hydrated and avoid constipation Pain Medications: 1. Tylenol 650mg every 6 hours as needed and Ibuprofen 600 mg every 6 hours as needed. You may alternate between the 2 medications every 3 hours 2. If a narcotic has been prescribed take as directed only for breakthrough pain For Constipation: 1. Take Milk of Magnesia or MiraLax as needed for constipation Other: 1. You may shower daily. Do not scrub the incisions 2. Do not soak the incisions for 1 week 3. You may alternate ice and heat as needed for pain and swelling Wound Care: 1. Keep the incisions clean and dry Please call our office if you develop: 1. Fevers >101.5 2. Nausea or Vomiting 3. Worsening pain 4. Redness and thick discharge from the wounds If after hours please call the Hospital at and ask to speak to the on-call surgeon Referrals: Brianda Stack DO [OSTEOPATHIC DOCTOR] - 05/21/21 1:45 pm Activity:: Activity as Tolerated Equipment/Supplies:: 4x4 and tape Diet:: Carb Counting Discharge Orders Discharge Orders: Discharge Order (Routine); Ordered 05/17/21 Ordered By: Tasha Steele DS: Diagnosis Discharge Diagnosis (1) Type II diabetes mellitus: Status: Acute (2) PTSD (post-traumatic stress disorder): Status: Acute (3) Radiculopathy affecting upper extremity: Status: Acute (4) Substance abuse: Status: Acute (5) Hyperlipidemia: Status: Acute (6) HTN (hypertension): Status: Chronic (7) CVA (cerebrovascular accident): Status: Chronic (8) Cellulitis of chest wall: Status: Acute (9) Community acquired pneumonia: Status: Acute (10) S/P shoulder replacement: Status: Acute (11) S/P cervical spinal fusion: Status: Acute
--- NOTE | 2021-05-17 11:13 | W.PM.PROGNOT ---
Date of Service Date of service: 05/17/21 Time of Service: 11:13 Assessment and Plan Assessment and plan (1) Type II diabetes mellitus: Status: Acute (2) PTSD (post-traumatic stress disorder): Status: Acute (3) Radiculopathy affecting upper extremity: Status: Acute (4) Substance abuse: Status: Acute (5) Hyperlipidemia: Status: Acute (6) HTN (hypertension): Status: Chronic (7) CVA (cerebrovascular accident): Status: Chronic (8) Cellulitis of chest wall: Status: Acute Assessment and plan: Improved on antibiotics. Culture showed MRSA on his neck and wound Sensitive to Trimethoprim/sulfamethoxazole Plan is for discharge on Bactrim BID for 12 days Follow up in the office next week (9) Community acquired pneumonia: Status: Acute Assessment and plan: negative sputum No pneumonia on CT scan Incidental finding of a nodule. Will need follow up CT scan in 6 months. Will defer to PCP (10) S/P shoulder replacement: Status: Acute (11) S/P cervical spinal fusion: Status: Acute Subjective Subjective Interval history since last seen: Mr. Streeter is doing well. No fevers. Eating and drinking. Exam Const General: cooperative, comfortable and no acute distress Orientation: alert and oriented x3 HENMT Head: normocephalic and atraumatic Resp Effort & Inspection: normal respiratory effort Auscultation: clear to auscultation bilaterally Cardio Rate: regular rate Rhythm: regular rhythm Heart Sounds: no gallops, no murmurs and no rubs GI Inspection: incision (c/d/i) Palpation: soft Objective Last Vital Signs Temp 98.8 F 05/17/21 07:30 Pulse 67 05/17/21 07:30 Resp 20 05/17/21 07:30 BP 149/89 H 05/17/21 07:30 Pulse Ox 96 05/17/21 07:30 Laboratory Results - last 24 hr 05/17/21 05/17/21 06:30 06:30 WBC 12.72 H RBC 5.13 Hgb 13.1 L Hct 40.1 MCV 78.2 L MCH 25.5 L MCHC 32.7 RDW 12.6 Plt Count 217 MPV 10.9 Immature Gran % 0.5 Neutrophils % 70.6 Lymphocytes % 15.1 Monocytes % 7.1 Eosinophils % 6.1 Basophils % 0.6 Nucleated RBC % 0 Absolute Neutrophils 8.98 H Absolute Lymphocytes 1.92 Absolute Monocytes 0.90 H Absolute Eosinophils 0.78 H Absolute Basophils 0.08 C-Reactive Protein 7.25 H
[2021-05-18 11:26] LABS: Hepatitis C Ab w Rflx HCV PCR Negative (Negative)
== END 2021-05-17 15:24 | disposition home or self-care (01) | DRG 580 ==
LOC: ER 14:29 → MS 05-15 06:37
PROVIDERS: Family Medicine; Admitting Provider Surgery; Emergency Provider Student in an Organized Health Care Education/Training Program; PCP Family Medicine; Visit Provider Surgery
PROC: 0K9H0ZZ Drainage of Right Thorax Muscle, Open Approach (ICD-10-PCS; CPT 21501; principal; 2021-05-15 12:00)
DX: S20.211A Contusion of right front wall of thorax, initial encounter (principal); L03.313 Cellulitis of chest wall; E11.9 Type 2 diabetes mellitus without complications; F43.10 Post-traumatic stress disorder, unspecified; F19.10 Other psychoactive substance abuse, uncomplicated; I10 Essential (primary) hypertension; Z86.73 Personal history of transient ischemic attack (TIA), and cerebral infarction without residual deficits; Z98.1 Arthrodesis status; F17.210 Nicotine dependence, cigarettes, uncomplicated; Z20.822 Contact with and (suspected) exposure to COVID-19; F12.10 Cannabis abuse, uncomplicated; F14.10 Cocaine abuse, uncomplicated; X58.XXXA Exposure to other specified factors, initial encounter; B95.62 Methicillin resistant Staphylococcus aureus infection as the cause of diseases classified elsewhere; R91.1 Solitary pulmonary nodule
CPT/HCPCS: 21501; 36410; 36415; 80053; 85027; 86803; 87040; 87077; 87635; 93005; 96361; 96365; 96367; 99285; J1650; 71260; 80202; 82977; 83036; 84443; 84484; 85025; 86140; 87070; 87186; 87205; 93010; 94667; J0690; J1885; J2704; J3490

== ENCOUNTER 2021-07-02 12:57 | Outpatient (REF) | payer MEDICAID, SELFPAY | END 2021-07-02 12:58 | disposition home or self-care (01) | LOC: NCHCN 12:57 | PROVIDERS: PCP Family Medicine; Visit Provider Family Medicine | DX: H93.92 Unspecified disorder of left ear (principal) | CPT/HCPCS: 87077; 87070; 87186; 87205 ==

== ENCOUNTER 2021-11-20 18:46 | Emergency (ER) | payer MEDICAID, SELFPAY ==
[2021-11-20 18:49] VITALS: BP 185/86; PULSE 80; RESP 19; TEMP 36.1; O2SAT 98
--- NOTE | 2021-11-20 19:24 | ED.GENADUL_ITS ---
Discharge Plan Disposition Patient Disposition: HOME Condition: Stable Discharge Details Clinical Impression: Cellulitis Primary Care Provider: Mojgan Prater V ED Provider: Paco Grimm Home Meds and New Rx's Prescriptions: New sulfamethoxazole-trimethoprim [Bactrim DS] 800-160 mg tablet 1 tab PO BID Qty: 20 0RF cephalexin 500 mg capsule 500 mg PO QID 10 Days Qty: 40 0RF No Action cyclobenzaprine 10 mg tablet 10 mg PO BID PRN PRN0RF trazodone 50 mg tablet 50 - 100 mg PO HS PRN PRN0RF gabapentin 300 mg capsule 900 mg PO BID 0RF albuterol sulfate [ProAir HFA] 90 mcg/actuation HFA aerosol inhaler 2 puff IH .COMPLEX PRN0RF Label Comments: 2 puff IH before exercise as needed PRN; Rx Instructions: 2 puff IH before exercise as needed PRN; methadone 5 mg/5 mL solution 100 mg PO DAILY 0RF oxycodone 5 mg tablet 10 mg PO Q6H MDD 8 tabs a day PRN (Reason: pain) Qty: 20 0RF risperidone [Risperdal] 2 MG tablet 2 mg PO HS 0RF atenolol 50 MG tablet 50 mg PO DAILY 0RF atorvastatin 40 mg tablet 40 mg PO DAILY 0RF Label Comments: TAKE 1 TABLET BY MOUTH EVERY DAY hydrochlorothiazide 25 mg tablet 25 mg PO DAILY 0RF Label Comments: TAKE 1/2 TABLET BY MOUTH DAILY FOR 1 TO 2 WEEKS THEN INCREASE TO 1 TABLET DAILY metformin 500 mg tablet extended release 24 hr 500 mg PO DAILY 0RF Label Comments: TAKE 1 TABLET BY MOUTH EVERY DAY venlafaxine 150 mg capsule,extended release 24hr 150 mg PO DAILY 0RF Label Comments: TAKE 1 CAPSULE BY MOUTH DAILY (DME) lancets [OneTouch UltraSoft Lancets] Misc MISCELLANEOUS 0RF Rx Instructions: USE ONCE DAILY (DME) OneTouch Verio test strips Strip MISCELLANEOUS 0RF Rx Instructions: TEST DAILY (DME) blood-glucose meter [OneTouch UltraMini] Kit MISCELLANEOUS 0RF famotidine 20 mg Tablet 40 mg PO HS Qty: 30 0RF sulfamethoxazole-trimethoprim [Bactrim DS] 800-160 mg tablet 1 tab PO Q12H Qty: 24 0RF Discharge Instructions Instructions: Cellulitis (ED) Additional Instructions: Bactrim and Keflex as directed. Continue monitoring your glucose levels carefully. Warm compresses every 2 hours for 20 minutes. Please watch for new or worsening symptoms and return to the ER for any concerns. Lastly, please contact your primary care provider on Tuesday to discuss your ER visit, ongoing symptoms, and need for patient reevaluation Medical Decision Making This is a 56-year-old gentleman, history of diabetes, presents to the ER for multiple skin lesions that he reports have been present over the past few days. Clinically he appears well, nontoxic, afebrile. No evidence of sepsis. He does tell me that he had a couple lesions around his lips originally though I do question if there is any impetigo but I do not see any clear honeycomb lesions to his face now. It would appear as though he has more of a secondary cellulitis and given his history of diabetes I would like to treat with both Keflex and Bactrim. I do not believe that any emergent laboratory values are indicated. Plan is to provide the first dose of Keflex and Bactrim now and then send him home with a prescription for 10 days. Standard discharge and return precautions were provided. This documentation was generated using [employer] dictation system, please disregard any oddities of phrase or misspellings. Medical Records Medical records reviewed: Yes I reviewed the patient's medical records. HPI General Mode of arrival: ambulatory . Date/Time Provider Initiated Documentation: 11/20/21 18:58 . Limitations to Documentation: no limitations . Information obtained by: patient . History of Present Illness 56 year old M presents to the emergency department with the chief complaint of Skin rash, described as mild, with intensity rated at 3. Quality is described as aching, and is localized to the face, buttocks and upper extremity. Patient reports no radiation. Patient started experiencing this day(s) (3) and it has been constant. improves with No relieving factors improve symptom(s), No exacerbating factors reported . Patient notes no other symptoms.. Patient did receive the following treatments prior to arrival, none Related Data Home Medications Medication Instructions Recorded Confirmed atenolol 50 mg tablet 50 mg PO DAILY 08/19/13 05/14/21 risperidone 2 mg tablet (Risperdal) 2 mg PO HS 08/19/13 05/14/21 albuterol sulfate 90 mcg/actuation 2 puff IH .COMPLEX PRN 11/08/18 05/14/21 aerosol inhaler (ProAir HFA) cyclobenzaprine 10 mg tablet 10 mg PO BID PRN PRN tab 11/08/18 05/14/21 gabapentin 300 mg capsule 900 mg PO BID cap 11/08/18 05/14/21 trazodone 50 mg tablet 50 - 100 mg PO HS PRN PRN tab 11/08/18 05/14/21 atorvastatin 40 mg tablet 40 mg PO DAILY 05/14/21 05/14/21 blood sugar diagnostic (OneTouch 05/14/21 05/14/21 Verio test strips) blood-glucose meter (OneTouch 05/14/21 05/14/21 UltraMini) hydrochlorothiazide 25 mg tablet 25 mg PO DAILY 05/14/21 05/14/21 lancets ([facility] 05/14/21 05/14/21 Lancets) metformin 500 mg tablet,extended 500 mg PO DAILY 05/14/21 05/14/21 release 24 hr methadone 5 mg/5 mL oral solution 100 mg PO DAILY ml 05/14/21 05/14/21 venlafaxine 150 mg 150 mg PO DAILY 05/14/21 05/14/21 capsule,extended release 24 hr famotidine 20 mg tablet 40 mg PO HS #30 tab 05/17/21 oxycodone 5 mg tablet 10 mg PO Q6H PRN #20 tab MDD 8 05/17/21 tabs a day sulfamethoxazole 800 1 tab PO Q12H #24 tab 05/17/21 mg-trimethoprim 160 mg tablet (Bactrim DS) cephalexin 500 mg capsule 500 mg PO QID 10 Days #40 cap 11/20/21 sulfamethoxazole 800 1 tab PO BID #20 tab 11/20/21 mg-trimethoprim 160 mg tablet (Bactrim DS) Previous Rx's Medication Instructions Recorded famotidine 20 mg tablet 40 mg PO HS #30 tab 05/17/21 oxycodone 5 mg tablet 10 mg PO Q6H PRN #20 tab MDD 8 05/17/21 tabs a day sulfamethoxazole 800 1 tab PO Q12H #24 tab 05/17/21 mg-trimethoprim 160 mg tablet (Bactrim DS) cephalexin 500 mg capsule 500 mg PO QID 10 Days #40 cap 11/20/21 sulfamethoxazole 800 1 tab PO BID #20 tab 11/20/21 mg-trimethoprim 160 mg tablet (Bactrim DS) Allergies Allergy/AdvReac Type Severity Reaction Status Date / Time mustard Allergy Severe Unverified 05/14/21 10:09 pregabalin [From Lyrica] Allergy Severe Unverified 05/14/21 10:09 venom-wasp Allergy Intermediate Verified 05/14/21 10:09 hydrocodone AdvReac Intermediate upset Unverified 05/14/21 10:11 stomach codeine AdvReac Nausea Unverified 05/14/21 10:09 tramadol AdvReac Nausea Unverified 05/14/21 10:09 General Stated Complaint: RashLesion ELKE: 4 Review of Systems Constitutional Constitutional: Denies fever(s), Denies headache(s) and Denies weakness ENT Ears, Nose, Mouth, and Throat: Denies headache(s) Cardiovascular Cardiovascular: Denies chest pain and Denies dyspnea Respiratory Respiratory: Denies dyspnea Gastrointestinal Gastrointestinal: Denies nausea and Denies vomiting Musculoskeletal Musculoskeletal: Denies arthralgias and Denies numbness Integumentary/Breasts Skin/Breast: Reports rash Neurologic Neurologic: Denies headache(s), Denies numbness and Denies weakness PFSH All Active Problems (Updated 11/20/21 @ 19:27 by CARMEN Joshi) Cellulitis (Acute) S/P shoulder replacement (Acute) S/P cervical spinal fusion (Acute) Type II diabetes mellitus (Acute) PTSD (post-traumatic stress disorder) (Acute) Radiculopathy affecting upper extremity (Acute) Substance abuse (Acute) Hyperlipidemia (Acute) HTN (hypertension) (Chronic) CVA (cerebrovascular accident) (Chronic) Cellulitis of chest wall (Acute) Community acquired pneumonia (Acute) Medical History Anxiety Cervicalgia Encounter for smoking cessation counseling Gingivitis Obesity Other injury of chest wall Panic disorder Preventative health care Repetitive strain injury of shoulder Spinal cord injuries Social History Smoking/Tobacco Use Status: Current every day Smoking risk assessment performed?: Yes Alcohol Intake: former Drug use: Occasionally Substance use type: marijuana and crack/cocaine Details: crack--2 days ago-smoked Do you feel safe at home: Yes Do you feel safe in your relationship?: Yes Exam Const General: cooperative, healthy appearing, comfortable and no acute distress Orientation: alert and awake [facility] Head: normal to inspection, normocephalic and atraumatic Mouth: moist mucous membranes Eyes General: appearance normal, both eyes and all related structures Conjunctivae: conjunctivae normal Neck Neck: normal visual inspection, trachea midline and supple Resp Effort & Inspection: normal respiratory effort and able to speak in complete sentences Auscultation: clear to auscultation bilaterally Cardio Rate: regular rate Rhythm: regular rhythm Skin Other: There are multiple scab-like skin lesions with mild surrounding erythema that are on his face below his lower lip, bilateral forearms, upper back, and right upper buttock. There is no evidence of fluctuance, active draining, or lymphangitic streaking. Neuro General: patient alert, patient awake, moves all extremities and no focal motor deficits Cognition: normal cognition Speech: speech normal Gait: normal gait Sensory Exam: no sensory deficits noted Extrem General: normal to inspection, full ROM and capillary refill normal Psych Appearance: grossly normal Mental Status: mental status grossly normal Course Vital Signs Vital signs: Vital Signs Temperature 36.1 C L 11/20/21 18:49 Pulse 80 11/20/21 18:49 Respiratory Rate 19 11/20/21 18:49 Blood Pressure 185/86 H 11/20/21 18:49 Pulse Oximetry 98 11/20/21 18:49 Temperature 36.1 C L 11/20/21 18:49 Temperature Source Tympanic 11/20/21 18:49 Pulse 80 11/20/21 18:49 Respiratory Rate 19 11/20/21 18:49 Respiratory Effort 11/20/21 18:52 Blood Pressure 185/86 H 11/20/21 18:49 Pulse Oximetry 98 11/20/21 18:49 Oxygen Delivery Method Room Air 11/20/21 18:49 Oxygen Flow Rate 0 11/20/21 18:49 Pain Level 0 11/20/21 18:49
[2021-11-20] MEDS: Sulfameth/Trimeth DS TAB 1 TAB PO (19:43)
[2021-11-20] MEDS: Cephalexin 500 MG CAP PO (19:43)
== END 2021-11-20 19:36 | disposition home or self-care (01) ==
PROVIDERS: Emergency Provider Physician Assistant; PCP Family Medicine
DX: L98.8 Other specified disorders of the skin and subcutaneous tissue (principal); L03.114 Cellulitis of left upper limb; L03.113 Cellulitis of right upper limb; L03.211 Cellulitis of face; E11.9 Type 2 diabetes mellitus without complications
CPT/HCPCS: 99283

== ENCOUNTER 2022-03-07 16:53 | Emergency (ER) | payer MEDICAID, SELFPAY ==
[2022-03-07 16:57] VITALS: BP 164/86; PULSE 93; RESP 18; TEMP 36.7; O2SAT 98
--- NOTE | 2022-03-07 17:50 | W.ED.GENAD ---
Discharge Plan Disposition Patient Disposition: HOME Condition: Stable Discharge Details Clinical Impression: Abscess, Cellulitis Primary Care Provider: Mojgan Prater V ED Provider: Francesca Martin Home Meds and New Rx's Prescriptions: New doxycycline hyclate 100 mg tablet 100 mg PO BID Qty: 20 0RF Continued cyclobenzaprine 10 mg tablet 10 mg PO BID PRN PRN trazodone 50 mg tablet 50 - 100 mg PO HS PRN PRN gabapentin 300 mg capsule 900 mg PO BID albuterol sulfate [ProAir HFA] 90 mcg/actuation HFA aerosol inhaler 2 puff IH .COMPLEX PRN Label Comments: 2 puff IH before exercise as needed PRN; Rx Instructions: 2 puff IH before exercise as needed PRN; methadone 5 mg/5 mL solution 105 mg PO DAILY oxycodone 5 mg tablet 10 mg PO Q6H MDD 8 tabs a day PRN (Reason: pain) Qty: 20 0RF risperidone [Risperdal] 2 MG tablet 2 mg PO HS atenolol 50 MG tablet 50 mg PO DAILY atorvastatin 40 mg tablet 40 mg PO DAILY Label Comments: TAKE 1 TABLET BY MOUTH EVERY DAY hydrochlorothiazide 25 mg tablet 25 mg PO DAILY Label Comments: TAKE 1/2 TABLET BY MOUTH DAILY FOR 1 TO 2 WEEKS THEN INCREASE TO 1 TABLET DAILY metformin 500 mg tablet extended release 24 hr 500 mg PO DAILY Label Comments: TAKE 1 TABLET BY MOUTH EVERY DAY venlafaxine 150 mg capsule,extended release 24hr 150 mg PO DAILY Label Comments: TAKE 1 CAPSULE BY MOUTH DAILY (DME) lancets [OneTouch UltraSoft Lancets] Misc MISCELLANEOUS Rx Instructions: USE ONCE DAILY (DME) OneTouch Verio test strips Strip MISCELLANEOUS Rx Instructions: TEST DAILY (DME) blood-glucose meter [OneTouch UltraMini] Kit MISCELLANEOUS famotidine 20 mg Tablet 40 mg PO HS Qty: 30 0RF Discharge Instructions Instructions: Cellulitis (ED), Abscess (ED) Additional Instructions: Please follow-up with surgery tomorrow, I am placing you on the list for follow-up Warm compresses to the affected area Keep the wick in place for 2 to 3 days and then remove it You will need your next dose of antibiotics 12 hours after taking the first, we are supplying you with the first dose in the emergency department Take Tylenol as needed for pain Continue on your prescribed methadone Return with fever, chills, spreading redness, or should you have any worsening complaints Referrals: Brianda Stack DO [OSTEOPATHIC DOCTOR] - Discharge Data Discharge Date/Time-TO BE ENTERED AT DEPARTURE: 03/07/22 18:24 Medical Decision Making Patient appears well, he does approximately 6 inch area of cellulitis and has not been on antibiotics Unfortunately had minimal drainage from the affected area His vitals are stable and he is otherwise nontoxic His blood glucose is 160 He will need close follow-up, I placed him on the list for referral for surgery and has that he may be reassessed tomorrow He is given the first dose of doxycycline He is discharged home with drain in place He will continue with warm compresses Return precautions discussed and patient expressed understanding HPI General Date/Time Provider Initiated Documentation: 03/07/22 17:08. HPI Narrative: This 56-year-old male presents with report of abscess he has a left axillary region. He states that it started draining today. He denies any fever or chills. He denies chest pain or shortness of breath. He denies any recent IV drug abuse and does take his methadone daily. He states he has had similar episodes in the past. He denies any current antibiotics. He states the pain is exacerbated with palpation. Related Data Home Medications Medication Instructions Recorded Confirmed atenolol 50 mg tablet 50 mg PO DAILY 08/19/13 03/08/22 risperidone 2 mg tablet (Risperdal) 2 mg PO HS 08/19/13 03/08/22 albuterol sulfate 90 mcg/actuation 2 puff inhalation .COMPLEX PRN 11/08/18 03/08/22 aerosol inhaler (ProAir HFA) cyclobenzaprine 10 mg tablet 10 mg PO BID PRN PRN 11/08/18 03/08/22 gabapentin 300 mg capsule 900 mg PO BID 11/08/18 03/08/22 trazodone 50 mg tablet 50 - 100 mg PO HS PRN PRN 11/08/18 03/08/22 atorvastatin 40 mg tablet 40 mg PO DAILY 05/14/21 03/08/22 blood sugar diagnostic (OneTouch 05/14/21 03/08/22 Verio test strips) blood-glucose meter (100du.tvTouch 05/14/21 03/08/22 UltraMini kit) hydrochlorothiazide 25 mg tablet 25 mg PO DAILY 05/14/21 03/08/22 lancets (OneTouch UltraSoft 05/14/21 03/08/22 Lancets) metformin 500 mg tablet,extended 500 mg PO DAILY 05/14/21 03/08/22 release 24 hr methadone 5 mg/5 mL oral solution 105 mg PO DAILY 05/14/21 03/08/22 venlafaxine 150 mg 150 mg PO DAILY 05/14/21 03/08/22 capsule,extended release 24 hr famotidine 20 mg tablet 40 mg PO HS #30 tabs 05/17/21 03/08/22 oxycodone 5 mg tablet 10 mg PO Q6H PRN pain #20 tabs 05/17/21 03/08/22 doxycycline hyclate 100 mg tablet 100 mg PO BID #20 tabs 03/07/22 03/08/22 Previous Rx's Medication Instructions Recorded famotidine 20 mg tablet 40 mg PO HS #30 tabs 05/17/21 oxycodone 5 mg tablet 10 mg PO Q6H PRN pain #20 tabs 05/17/21 doxycycline hyclate 100 mg tablet 100 mg PO BID #20 tabs 03/07/22 Allergies Allergy/AdvReac Type Severity Reaction Status Date / Time mustard Allergy Severe Unverified 03/08/22 14:54 pregabalin [From Lyrica] Allergy Severe Unverified 03/08/22 14:54 venom-wasp Allergy Intermediate Verified 03/08/22 14:54 hydrocodone AdvReac Intermediate upset Unverified 03/08/22 14:54 stomach codeine AdvReac Nausea Unverified 03/08/22 14:54 tramadol AdvReac Uncoded 03/08/22 15:36 General Stated Complaint: Cellulitis ELKE: 3 Review of Systems All systems reviewed & are unremarkable except as noted in HPI and below PFSH All Active Problems (Updated 03/08/22 @ 14:05 by Xochitl Walden RN) Abscess (Acute) Cellulitis (Acute) Type II diabetes mellitus (Acute) Substance abuse (Acute) CVA (cerebrovascular accident) (Chronic) Cellulitis of chest wall (Acute) Community acquired pneumonia (Acute) Medical History (Updated 03/08/22 @ 14:05 by Xochitl Walden RN) Anxiety Cervicalgia Encounter for smoking cessation counseling Gingivitis HTN (hypertension) Hyperlipidemia Obesity Other injury of chest wall Panic disorder Preventative health care PTSD (post-traumatic stress disorder) Radiculopathy affecting upper extremity Repetitive strain injury of shoulder Spinal cord injuries Surgical History (Updated 03/08/22 @ 14:05 by Xochitl Walden RN) S/P cervical spinal fusion S/P shoulder replacement Social History Smoking/Tobacco Use Status: Current every day Tobacco Type: cigarettes Smoking risk assessment performed?: Yes Alcohol Intake: former Drug use: Occasionally Substance use type: marijuana and crack/cocaine Details: crack--2 days ago-smoked Do you feel safe at home: Yes Do you feel safe in your relationship?: Yes Exam Const General: cooperative and no acute distress Resp Effort & Inspection: normal respiratory effort Cardio Rate: regular rate Rhythm: regular rhythm Skin Full body images: 1. 6 inch area of erythema with central induration and abscess to the axillary region, no crepitus Neuro General: patient alert and patient oriented x3 Course Vital Signs Vital signs: Vital Signs Temperature 36.7 C 03/07/22 16:57 Pulse 93 H 03/07/22 16:57 Respiratory Rate 18 03/07/22 16:57 Blood Pressure 164/86 H 03/07/22 16:57 Pulse Oximetry 98 03/07/22 16:57 Temperature 36.7 C 03/07/22 16:57 Temperature Source Temporal Artery Scan 03/07/22 16:57 Pulse 93 H 03/07/22 16:57 Respiratory Rate 18 03/07/22 16:57 Respiratory Effort Non-Labored 03/07/22 17:01 Blood Pressure 164/86 H 03/07/22 16:57 Blood Pressure Position Sitting 03/07/22 16:57 Pulse Oximetry 98 03/07/22 16:57 Oxygen Delivery Method Room Air 03/07/22 16:57 Oxygen Flow Rate 0 03/07/22 16:57 Pain Level 6 03/07/22 16:57 Procedures Abscess I/D Site: Other (left axillary) Side (if applicable): Left Local Anesthetic: Lidocaine 1% Amount of anesthesia used (mL): 7 Technique: Needle Aspiration and Incised with #11 Blade Amount of fluid expressed (mL): 10 Irrigation: Yes Packing used?: Plain Complications: Bleeding
[2022-03-07] MEDS: Doxycycline Hyclate 100 MG CAP PO (17:55)
--- NOTE | 2022-03-08 01:05 | NUR.NOTE ---
Referral [facility]ed to [facility] to f/u for abscess/cellulitis of the axillary area.Nursing Note:
--- NOTE | 2022-03-08 12:58 | NUR.NOTE ---
Nursing Note: Patient called asking about when he is supposed to be going for surgery on tumors that he has. I gave him the phone number to [facility] Jaclyn Farrell
== END 2022-03-07 18:24 | disposition home or self-care (01) ==
PROVIDERS: Emergency Provider Physician Assistant; PCP Family Medicine
DX: L02.412 Cutaneous abscess of left axilla (principal); L03.112 Cellulitis of left axilla; E11.9 Type 2 diabetes mellitus without complications
CPT/HCPCS: 10061; 36416; 82962

== ENCOUNTER 2022-03-08 15:42 | Inpatient (IN) | payer MEDICAID, SELFPAY ==
--- NOTE | 2022-03-08 15:45 | HPE_ITS ---
Date of service: 03/08/22 Time of Service: 15:45 Assessment and Plan Assessment and plan (1) Abscess: Status: Acute Assessment and plan: Patient to be admitted for IV antibiotics. Will check CBC, BMP, CRP, HbA1C Diabetic diet Pain control Activity as tolerated ordered nicotine replacement Patient seen and examined. Agree with above. Ultrasound was performed at bedside in the clinic. I do not see any large abscesses or pockets. He did have an I&D in the ER yesterday. Its not been draining anything significant today. 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 He does have a history of MRSA. -We will admit him for IV antibiotics and see how the cellulitis/abscess look in the next 24 hours. If there is not significant improvement, then possible I&D in a.m. N.p.o. after midnight. It is unclear exactly what his home meds are. (2) Cellulitis: Status: Acute (3) Type II diabetes mellitus: Status: Acute Assessment and plan: We will continue home meds. Blood sugar checks (4) Substance abuse: Status: Acute History of Present Illness Narrative: 56-year-old male with history of type 2 diabetes, substance abuse, CVA and MRSA presented to the outpatient clinic for further evaluation of an left axillary abscess following incision and drainage in the ER yesterday 03/07. Patient did not pickling operator his prescription antibiotics. Patient expresses excruciating pain in the left axilla and states he does not feel it is improved at all. Patient denies having any fevers, chills or night sweats. PFSH All Active Problems (Updated 03/08/22 @ 14:05 by Xochitl Walden RN) Abscess (Acute) Cellulitis (Acute) Type II diabetes mellitus (Acute) Substance abuse (Acute) CVA (cerebrovascular accident) (Chronic) Cellulitis of chest wall (Acute) Community acquired pneumonia (Acute) Medical History (Updated 03/08/22 @ 14:05 by Xochitl Walden RN) Anxiety Cervicalgia Encounter for smoking cessation counseling Gingivitis HTN (hypertension) Hyperlipidemia Obesity Other injury of chest wall Panic disorder Preventative health care PTSD (post-traumatic stress disorder) Radiculopathy affecting upper extremity Repetitive strain injury of shoulder Spinal cord injuries Surgical History (Updated 03/08/22 @ 14:05 by Xochitl Walden RN) S/P cervical spinal fusion S/P shoulder replacement Social History Smoking/Tobacco Use Status: Current every day Tobacco Type: cigarettes Smoking risk assessment performed?: Yes Alcohol Intake: former Drug use: Occasionally Substance use type: marijuana and crack/cocaine Details: crack--2 days ago-smoked Do you feel safe at home: Yes Do you feel safe in your relationship?: Yes Meds Allergies and Home Medications Allergies Allergy/AdvReac Type Severity Reaction Status Date / Time mustard Allergy Severe Unverified 03/08/22 14:54 pregabalin [From Lyrica] Allergy Severe Unverified 03/08/22 14:54 venom-wasp Allergy Intermediate Verified 03/08/22 14:54 hydrocodone AdvReac Intermediate upset Unverified 03/08/22 14:54 stomach codeine AdvReac Nausea Unverified 03/08/22 14:54 tramadol AdvReac Uncoded 03/08/22 15:36 Home Medications Medication Instructions Recorded Confirmed Type atenolol 50 mg tablet 50 mg PO DAILY 08/19/13 03/08/22 History risperidone 2 mg tablet (Risperdal) 2 mg PO HS 08/19/13 03/08/22 History albuterol sulfate 90 mcg/actuation 2 puff inhalation .COMPLEX PRN 11/08/1803/08 History aerosol inhaler (ProAir HFA) cyclobenzaprine 10 mg tablet 10 mg PO BID PRN PRN 11/08/18 03/08/22 History gabapentin 300 mg capsule 900 mg PO BID 11/08/18 03/08/22 History trazodone 50 mg tablet 50 - 100 mg PO HS PRN PRN 11/08/18 03/08/22 History atorvastatin 40 mg tablet 40 mg PO DAILY 05/14/21 03/08/22 History blood sugar diagnostic (OneTouch 05/14/21 03/08/22 History Verio test strips) blood-glucose meter (OneTouch 05/14/21 03/08/22 History UltraMini kit) hydrochlorothiazide 25 mg tablet 25 mg PO DAILY 05/14/21 03/08/22 History lancets (OneTouch UltraSoft 05/14/21 03/08/22 History Lancets) metformin 500 mg tablet,extended 500 mg PO DAILY 05/14/21 03/08/22 History release 24 hr methadone 5 mg/5 mL oral solution 105 mg PO DAILY 05/14/21 03/08/22 History venlafaxine 150 mg 150 mg PO DAILY 05/14/21 03/08/22 History capsule,extended release 24 hr famotidine 20 mg tablet 40 mg PO HS #30 tabs 05/17/21 03/08/22 Rx oxycodone 5 mg tablet 10 mg PO Q6H PRN pain #20 tabs 05/17/21 03/08/22 Rx doxycycline hyclate 100 mg tablet 100 mg PO BID #20 tabs 03/07/22 03/08/22 Rx Exam Const General: cooperative and comfortable Orientation: alert and oriented x3 Resp Effort & Inspection: normal respiratory effort, no audible wheezes and no cough Skin Other: Left axilla-moderate amount of erythema and swelling of the left axilla. A 3 cm abscess that was previously I&D is noted. However significant swelling and i nduration around this. No fluctuance noted. The wound is not actively draining. Results Labs Result diagrams: 03/08/22 16:20 03/08/22 16:20
[2022-03-08 16:19] VITALS: BP 180/99; PULSE 78; RESP 16; TEMP 36.8; O2SAT 97
[2022-03-08 17:05] LABS: Abs Immature Grans 0.05 10^3/uL (0.0-0.06); Absolute Eosinophil Count 0.57 10^3/uL (0.0-0.7); Absolute Lymphocyte Count 1.96 10^3/uL (1.2-3.4); Absolute Monocyte Count 0.83 10^3/uL (0.1-0.8); Basophils % 0.3; Eosinophils % 3.9; HCT 51.1 % (40.0-50.0); HGB 16.2 g/dL (13.5-17.5); Immature Grans % 0.3; Lymphocytes % 13.5; MCH 24.8 pg (27.0-33.0); MCHC 31.7 % (32.0-36.0); MCV 78 fL (80-95); MPV 10.9 fL (8.0-11.0); Monocytes % 5.7; Neutrophils % 76.3; Platelet Count 197 10^3/uL (130-400); RBC 6.52 10^6/uL (4.36-5.78); RDW 12.7 % (11.8-14.1); RDW-SD 36.1 fL
[2022-03-08 17:07] LABS: Absolute Basophil Count 0.04 10^3/uL (0.0-0.2); Absolute Neutrophil Count 11.06 10^3/uL (1.2-6.7)
[2022-03-08 17:17] LABS: C-Reactive Protein 6.59 mg/dL (0.0-0.3)
[2022-03-08 17:20] LABS: ALT 29 U/L (16-63); AST 17 U/L (15-37); Albumin 3.9 g/dL (3.4-5.0); Alkaline Phosphatase 113 U/L (46-116); Anion Gap 8.4 mmol/L (3-11); BUN 14 mg/dL (7-18); Bilirubin, Total 1.4 mg/dL (0.2-1.0); CO2 27.6 mmol/L (21.0-32.0); CREATININE 0.9 mg/dL (0.70-1.30); Calcium 9.1 mg/dL (8.5-10.1); Chloride 101 mmol/L (98-107); Glucose 94 mg/dL (74-106); Potassium 4.2 mmol/L (3.5-5.1); Sodium 137 mmol/L (136-145); Total Protein 8.6 g/dL (6.4-8.2)
[2022-03-08 17:42] LABS: Hemoglobin A1C 6.2 % (<5.7)
[2022-03-08 18:00] LABS: Source Nasal/Nares
[2022-03-08] MEDS: Lactated Ringers 1,000 ML 125 ML IV (18:10)
[2022-03-08] MEDS: VANCOMYCIN/WATER (PEG) 2 GM/400 ML BAG IV (18:10)
[2022-03-08] MEDS: Normal Saline Flush 10 ML SYR IVP ×2 (18:11→20:49)
[2022-03-08] MEDS: Acetaminophen 500 MG TAB 1000 MG PO ×2 (18:11→23:52)
--- NOTE | 2022-03-08 18:16 | NUR.NOTE ---
Nursing Note: Accessed patient record at [facility] at the request of Dr. Stack/Maye Bañuelos, SOSA to print the patient's current medications for admission.
[2022-03-08 18:51] LABS: COVID-19 PCR Negative (Negative)
[2022-03-08 20:47] VITALS: BP 174/100; PULSE 60; RESP 19; TEMP 36.8; O2SAT 96
[2022-03-08] MEDS: Ketorolac 15 MG/ML VIAL IVP (20:49)
[2022-03-08] MEDS: Famotidine 20 MG TAB 40 MG PO (21:19)
[2022-03-08 23:12] VITALS: BP 169/86; PULSE 80; RESP 16; TEMP 36.6; O2SAT 97
[2022-03-09] MEDS: Ketorolac 15 MG/ML VIAL IVP ×4 (01:42→20:12)
[2022-03-09] MEDS: Normal Saline Flush 10 ML SYR IVP ×3 (01:43→20:13)
[2022-03-09 03:13] VITALS: BP 165/91; PULSE 55; RESP 16; TEMP 36.6; O2SAT 97
[2022-03-09] MEDS: Lactated Ringers 1,000 ML 125 ML IV (04:00)
[2022-03-09] MEDS: Acetaminophen 500 MG TAB 1000 MG PO ×2 (05:54→14:33)
[2022-03-09] MEDS: VANCOMYCIN/WATER (PEG) 2 GM/400 ML BAG IV ×2 (05:54→18:06)
[2022-03-09 07:42] LABS: Abs Immature Grans 0.04 10^3/uL (0.0-0.06); Absolute Basophil Count 0.05 10^3/uL (0.0-0.2); Absolute Eosinophil Count 1.09 10^3/uL (0.0-0.7); Absolute Lymphocyte Count 2.54 10^3/uL (1.2-3.4); Absolute Monocyte Count 0.69 10^3/uL (0.1-0.8); Absolute Neutrophil Count 5.66 10^3/uL (1.2-6.7); Basophils % 0.5; Eosinophils % 10.8; HCT 45.5 % (40.0-50.0); Immature Grans % 0.4; Lymphocytes % 25.2; MCH 25.6 pg (27.0-33.0); MCV 78 fL (80-95); MPV 11.3 fL (8.0-11.0); Monocytes % 6.9; Neutrophils % 56.2; Platelet Count 170 10^3/uL (130-400); RBC 5.85 10^6/uL (4.36-5.78); RDW 12.8 % (11.8-14.1); RDW-SD 36.6 fL; WBC 10.07 10^3/uL (4.4-10.8)
[2022-03-09 07:52] VITALS: BP 158/97; PULSE 49; RESP 18; TEMP 36.2; O2SAT 97
[2022-03-09 08:00] LABS: C-Reactive Protein 3.62 mg/dL (0.0-0.3)
--- NOTE | 2022-03-09 08:31 | INITIAL_ITS ---
- If Service Date Differs Date of service: 03/09/22 Time of Service: 08:31 Care Management Initial Assess REASON FOR HOSPITALIZATION:: Cellulites, Abscess PAST MEDICAL HISTORY/PAST SURGICAL HISTORY:: All Active Problems (Updated 03/08/22 @ 14:05 by Xochitl Walden RN). Abscess (Acute). Cellulitis (Acute). Type II diabetes mellitus (Acute). Substance abuse (Acute). CVA (cerebrovascular accident) (Chronic). Cellulitis of chest wall (Acute). Commu nity acquired pneumonia (Acute). Medical History (Updated 03/08/22 @ 14:05 by Xochitl Walden RN). Anxiety. Cervicalgia. Encounter for smoking cessation counseling. Gingivitis. HTN (hypertension). Hyperlipidemia. Obesity. Other injury of chest wall. Panic disorder. Preventative health care. PTSD (post- traumatic stress disorder). Radiculopathy affecting upper extremity. Repetitive strain injury of shoulder. Spinal cord injuries. Surgical History (Updated 03/08/22 @ 14:05 by Xochitl Walden RN). S/P cervical spinal fusion. S/P shoulder replacement PREVIOUS FUNCTIONAL STATUS/SOCIAL/FAMILY SUPPORTS:: Vipul lives alone in [place], [place] He has 4 children and 6 grandchildren. He is disabled and receives SSDI. Vipul is independent at baseline and drives. CURRENT FUNCTIONAL STATUS:: Vipul was lying in bed when CM met with him. He is awake, alert and easy to engage in conversation. Vipul is interested in a referral to [facility] to discuss food resources. CM placed referral. ADVANCE DIRECTIVES:: None on file, CM will provide forms. Has patient been provided with info about the portal/API?: Yes Did the patient sign up for the portal?: No CODE STATUS:: Full Code INSURANCE COVERAGE / FINANCIAL ISSUES:: Medicaid CURRENT HOME/COMMUNITY SERVICES/EQUIPMENT:: SSDI PRIMARY CARE PHYSICIAN:: Mojgan Prater POTENTIAL DISCHARGE NEEDS:: Follow up appointments. PATIENT/FAMILY EDUCATION NEEDS:: Review of discharge instructions, medications, activity, follow up plan,. Ask Me Three. TRANSPORTATION:: via private vehicle with a friend. PLAN:: Vipul is being followed by Gen. Surgery. He is receiving IV abx and wound care and has cultures pending. Anticipate, he will discharge home on oral abx when medically ready per Gen. Surgery. He will transport via private vehicle with friend and have [facility] services for wound care, if indicated.
[2022-03-09] MEDS: Methadone Liquid 10 MG/ML 105 MG PO (09:06)
[2022-03-09] MEDS: metFORMIN C.R. 500 MG TABCR PO (09:12)
[2022-03-09] MEDS: Atenolol 50 MG TAB PO (09:12)
--- NOTE | 2022-03-09 09:15 | W.PM.PROGNOT ---
Date of Service Date of service: 03/09/22 Time of Service: 09:15 Assessment and Plan Assessment and plan (1) Infected sebaceous cyst of skin: Status: Acute Assessment and plan: -pack wet to dry daily -24 hrs vanco change to bactrim and d/c in am f/u in office for wound care. F/u PCP for control of blood sugars and HTN stop smoking (2) Abscess: Status: Acute Assessment and plan: Patient had a dramatic response to Of IV Vanco and is significantly improved. The redness and swelling have gone down greater than 75%. This does appear to have started from an infected sebaceous cyst. I was able to open up the original abscess cavity. There does not appear to be any further abscess. There is still some residual capsular so this will need to be excised at a later date. Wound care:PWithack gauze dressing daily. Diabetic diet Continue antibiotics for another 24 hours plan on switch to oral and DC home on Tuesday. (3) Cellulitis: Status: Acute (4) Type II diabetes mellitus: Status: Acute (5) Gingivitis: (6) HTN (hypertension): (7) Hyperlipidemia: (8) Obesity: Subjective Subjective Interval history since last seen: Redness and swelling have decreased significantly. no drainage noted from L axillary abscess. the incision is c/d/i. There does still appear to the posterior capsule of a adriana. cyst in place. This will need to be removed at a later date. Pt is doing well. no headaches. No CP or SOB. no productive cough. no dysuria. no leg pain or swelling. He had a formed BM/no diarrhea. Exam Skin Other: sigminf decreased in redness and swelling. wound is opened. cyst capsule from adriana cyst noted. wound bed is c/d/i. no granulation noted. Objective Last Vital Signs Temp 36.2 C L 03/09/22 07:52 Pulse 49 L 03/09/22 07:52 Resp 18 03/09/22 07:52 BP 158/97 H 03/09/22 07:52 Pulse Ox 97 03/09/22 07:52 Laboratory Results - last 24 hr 03/08/22 03/08/22 03/08/22 16:20 16:20 16:20 WBC 14.50 H RBC 6.52 H Hgb 16.2 Hct 51.1 H MCV 78 L MCH 24.8 L MCHC 31.7 L RDW 12.7 Plt Count 197 MPV 10.9 Immature Gran % 0.3 Neutrophils % 76.3 Lymphocytes % 13.5 Monocytes % 5.7 Eosinophils % 3.9 Basophils % 0.3 Nucleated RBC % 0.0 Absolute Neutrophils 11.06 H Absolute Lymphocytes 1.96 Absolute Monocytes 0.83 H Absolute Eosinophils 0.57 Absolute Basophils 0.04 Sodium 137 Potassium 4.2 Chloride 101 Carbon Dioxide 27.6 Anion Gap 8.4 BUN 14 Creatinine 0.9 Estimated GFR/1.73 m2 >= 60.00 Glucose 94 Hemoglobin A1c Calcium 9.1 Total Bilirubin 1.4 H AST 17 ALT 29 Alkaline Phosphatase 113 C-Reactive Protein 6.59 H Total Protein 8.6 H Albumin 3.9 COVID-19 Source SARS-CoV-2 (PCR) 03/08/22 03/08/22 03/09/22 16:20 17:30 07:25 WBC RBC Hgb Hct MCV MCH MCHC RDW Plt Count MPV Immature Gran % Neutrophils % Lymphocytes % Monocytes % Eosinophils % Basophils % Nucleated RBC % Absolute Neutrophils Absolute Lymphocytes Absolute Monocytes Absolute Eosinophils Absolute Basophils Sodium Potassium Chloride Carbon Dioxide Anion Gap BUN Creatinine Estimated GFR/1.73 m2 Glucose Hemoglobin A1c 6.2 H Calcium Total Bilirubin AST ALT Alkaline Phosphatase C-Reactive Protein 3.62 H Total Protein Albumin COVID-19 Source Nasal/Nares SARS-CoV-2 (PCR) Negative 03/09/22 07:25 WBC 10.07 RBC 5.85 H Hgb 15.0 Hct 45.5 MCV 78 L MCH 25.6 L MCHC 33.0 D RDW 12.8 Plt Count 170 MPV 11.3 H Immature Gran % 0.4 Neutrophils % 56.2 Lymphocytes % 25.2 Monocytes % 6.9 Eosinophils % 10.8 Basophils % 0.5 Nucleated RBC % 0.0 Absolute Neutrophils 5.66 Absolute Lymphocytes 2.54 Absolute Monocytes 0.69 Absolute Eosinophils 1.09 H Absolute Basophils 0.05 Sodium Potassium Chloride Carbon Dioxide Anion Gap BUN Creatinine Estimated GFR/1.73 m2 Glucose Hemoglobin A1c Calcium Total Bilirubin AST ALT Alkaline Phosphatase C-Reactive Protein Total Protein Albumin COVID-19 Source SARS-CoV-2 (PCR)
[2022-03-09 15:07] VITALS: BP 155/91; PULSE 56; RESP 18; TEMP 36.1; O2SAT 95
[2022-03-09] MEDS: Famotidine 20 MG TAB 40 MG PO (21:23)
[2022-03-09 23:39] VITALS: BP 155/91; PULSE 60; RESP 18; TEMP 36.7; O2SAT 95
[2022-03-10] MEDS: Ketorolac 15 MG/ML VIAL IVP ×3 (01:28→14:13)
[2022-03-10 06:38] LABS: Vancomycin, Trough 9.9 ug/mL (10.0-20.0)
[2022-03-10] MEDS: VANCOMYCIN/WATER (PEG) 2 GM/400 ML BAG IV (07:16)
[2022-03-10] MEDS: Normal Saline Flush 10 ML SYR IVP ×3 (07:17→14:13)
[2022-03-10 07:58] VITALS: BP 179/99; PULSE 51; RESP 18; TEMP 36.4; O2SAT 97
[2022-03-10] MEDS: metFORMIN C.R. 500 MG TABCR PO (08:32)
[2022-03-10] MEDS: Atenolol 50 MG TAB PO (08:33)
[2022-03-10] MEDS: Methadone Liquid 10 MG/ML 105 MG PO (08:33)
--- NOTE | 2022-03-10 08:45 | PDOC.CMPRO ---
- If Service Date Differs Date of service: 03/10/22 Time of Service: 08:45 Care Management Progress Note S/O: Vipul was sitting up in bed talking on his phone when CM met with him. He is alert and oriented. CM placed [facility] referral, pt would like assistance applying for food benefits. A: 56 year old male admitted to [facility] on 03/08/22 for Cellulites, Abscess P: Vipul is being followed by Gen[facility] Surgery. He is receiving IV abx and wound care and has cultures pending. Anticipate, he will discharge home on oral abx when medically ready per Gen. Surgery. He will transport via private vehicle with friend and have [facility] services for wound care, if indicated.
--- NOTE | 2022-03-10 11:51 | W.PM.PROGNOT ---
Date of Service Date of service: 03/10/22 Time of Service: 11:52 Assessment and Plan Assessment and plan (1) Infected sebaceous cyst of skin: Status: Acute Assessment and plan: Wound packed and dressing applied. This will need to be changed once/day. Signfiicant improvement in erythema and swelling compared to upon admission. He received his final dose of IV Vanco, switched to PO Bactrim. Will order/request for Bactrim to be dispensed by hospital pharmacy to help facilitate patient compliance. Encouraged smoking cessation D/C home later today He will require wound care follow up in the surgical office Recommend follow up with PCP for DM and HTN management Agree with above. Patient is doing well There is no erythema or edmema No packing Needs to keep the area covered. We will give him some supplies and antibiotics (2) Abscess: Status: Acute (3) Cellulitis: Status: Acute (4) Type II diabetes mellitus: Status: Acute (5) Gingivitis: (6) HTN (hypertension): (7) Hyperlipidemia: (8) Obesity: Subjective Subjective Interval history since last seen: Patient reports that he is feeling well however his left axilla is quite sore. He denies any fevers, chills or night sweats. He states that the redness has improved over the past couple days. Exam Const General: cooperative, healthy appearing and comfortable Orientation: alert and oriented x3 Resp Effort & Inspection: normal respiratory effort, no audible wheezes and no cough Skin Other: Left axilla-dressing was removed the area and wound was cleansed with sterile saline. A 2 x 2 piece of gauze was used for packing then dressed with a nonadherent dressing and Medipore tape. No erythema or fluctuance noted. Swelling and induration localized around the wound. Objective Last Vital Signs Temp 36.4 C L 03/10/22 07:58 Pulse 51 L 03/10/22 07:58 Resp 18 03/10/22 07:58 BP 179/99 H 03/10/22 07:58 Pulse Ox 97 03/10/22 07:58 Laboratory Results - last 24 hr 03/10/22 05:05 Vancomycin Trough 9.9 L
[2022-03-10] MEDS: Sulfameth/Trimeth DS TAB 1 TAB PO (12:11)
--- NOTE | 2022-03-10 12:31 | W.PM.DS.N ---
Date of service: 03/10/22 Time of Service: 12:31 DS: Diagnosis Discharge Diagnosis (1) Infected sebaceous cyst of skin: Status: Acute (2) Abscess: Status: Acute (3) Cellulitis: Status: Acute (4) Type II diabetes mellitus: Status: Acute (5) Gingivitis: (6) HTN (hypertension): (7) Hyperlipidemia: (8) Obesity: Discharge Plan Disposition Patient Disposition: HOME Condition: Improving Discharge Details Reason For Visit: Cellulitis/Abscess Left Axillae Admit Date/Time: 03/08/22 15:42 Admit Provider: Brianda Stack Attending Provider: Brianda Stack Primary Care Provider: Mojgan Prater V Hospital Course Hospital Course: 56-year-old male with a history of hypertension, diabetes, CVA and MRSA was directly admitted to hospital for IV antibiotics for infected sebaceous cyst located in the left axilla. Over the course of 2 days the patient had significant improvement in his erythema and swelling from the infection. Patient was then switched to p.o. Bactrim will be discharged on a 7-day course of Bactrim. Patient is stable and denies any fevers, chills or night sweats Wound care was provided during his hospital stay which included wound packing and a cover dressing. These will need to continue upon discharge. Patient will require wound care follow-up in the surgical clinic. Also recommends that he follows up with his PCP regarding hypertension and diabetes management. Home Meds and New Rx's Prescriptions: Continued cyclobenzaprine 10 mg tablet 10 mg PO BID PRN PRN trazodone 50 mg tablet 50 - 100 mg PO HS PRN PRN gabapentin 300 mg capsule 900 mg PO BID albuterol sulfate [ProAir HFA] 90 mcg/actuation HFA aerosol inhaler 2 puff IH .COMPLEX PRN Label Comments: 2 puff IH before exercise as needed PRN; Rx Instructions: 2 puff IH before exercise as needed PRN; methadone 5 mg/5 mL solution 105 mg PO DAILY oxycodone 5 mg tablet 10 mg PO Q6H MDD 8 tabs a day PRN (Reason: pain) Qty: 20 0RF risperidone [Risperdal] 2 MG tablet 2 mg PO HS atenolol 50 MG tablet 50 mg PO DAILY atorvastatin 40 mg tablet 40 mg PO DAILY Label Comments: TAKE 1 TABLET BY MOUTH EVERY DAY hydrochlorothiazide 25 mg tablet 25 mg PO DAILY Label Comments: TAKE 1/2 TABLET BY MOUTH DAILY FOR 1 TO 2 WEEKS THEN INCREASE TO 1 TABLET DAILY metformin 500 mg tablet extended release 24 hr 500 mg PO DAILY Label Comments: TAKE 1 TABLET BY MOUTH EVERY DAY venlafaxine 150 mg capsule,extended release 24hr 150 mg PO DAILY Label Comments: TAKE 1 CAPSULE BY MOUTH DAILY (DME) lancets [OneTouch UltraSoft Lancets] Misc MISCELLANEOUS Rx Instructions: USE ONCE DAILY (DME) OneTouch Verio test strips Strip MISCELLANEOUS Rx Instructions: TEST DAILY (DME) blood-glucose meter [OneTouch UltraMini] Kit MISCELLANEOUS famotidine 20 mg Tablet 40 mg PO HS Qty: 30 0RF doxycycline hyclate 100 mg tablet 100 mg PO BID Qty: 20 0RF Discharge Instructions Referrals: Brianda Stack DO [OSTEOPATHIC DOCTOR] - (appointment next week with either Dr. Stack or CARMEN Tello) Activity:: Activity as Tolerated Equipment/Supplies:: No Equipment Needed Diet:: Carb Counting Discharge Orders Discharge Orders: Discharge Order (Routine); Ordered 03/10/22 Ordered By: Tasha Steele DS: Summary Time Spent with Patient providing and/or coordinating discharge services: Less than 30 minutes Status at Discharge Functional status at discharge: independent ambulation Overall status at discharge: patient is back to baseline Mental Status: mental status grossly normal Speech and Movement: speech and movement normal Mood: congruent mood Affect: normal affect Exam Const General: cooperative, healthy appearing and comfortable Orientation: alert and oriented x3 Resp Effort & Inspection: normal respiratory effort, no audible wheezes and no cough Other: Left axilla-mild swelling and induration localized to the wound. No erythema or drainage noted. New dressing was applied this morning 03/10 Psych Mental Status: mental status grossly normal Speech and Movement: speech and movement normal Mood: congruent mood Affect: normal affect DS: Data Vitals/I&O Vitals and I&O: Vital Signs Temperature 36.4 C L 03/10/22 07:58 Temperature Source Tympanic 03/10/22 07:58 Pulse 51 L 03/10/22 07:58 Pulse Rhythm Regular 03/10/22 08:30 Respiratory Rate 18 03/10/22 07:58 Respiratory Effort Non-Labored 03/10/22 08:30 Respiratory Depth Normal 03/10/22 08:30 Respiratory Pattern Normal 03/10/22 08:30 Blood Pressure 179/99 H 03/10/22 07:58 Pulse Oximetry 97 03/10/22 07:58 Oxygen Delivery Method Room Air 03/10/22 07:58 Oxygen Flow Rate 0 03/10/22 07:58 Pain Level 5 03/10/22 08:33 Comment 03/10/22 07:58 Intake & Output 03/09/22 03/10/22 03/10/22 18:59 06:59 18:59 Intake Total 2690 / 3090 400 / 3090 1640 / 1640 Balance 2690 / 3090 400 / 3090 1640 / 1640 Intake: IV 400 / 800 400 / 800 1400 / 1400 Oral 2290 / 2290 240 / 240 Other: Urine Appearance Clear Clear Comment pT goes to the bathroom independently. pT goes to the bathroom independently. Voiding Methods Toilet Toilet Data Completed and Pending Labs on day of discharge: Labs from last 24 hours 03/10/22 05:05 Vancomycin Trough 9.9 L Preliminary micro results at discharge 03/08/22 16:40 Blood Culture - Preliminary Blood NO GROWTH 24 HOURS 03/08/22 16:20 Blood Culture - Preliminary Blood NO GROWTH 24 HOURS PFSH All Active Problems (Updated 03/09/22 @ 09:16 by Brianda Stack DO) Infected sebaceous cyst of skin (Acute) Abscess (Acute) Cellulitis (Acute) Type II diabetes mellitus (Acute) Substance abuse (Acute) CVA (cerebrovascular accident) (Chronic) Cellulitis of chest wall (Acute) Community acquired pneumonia (Acute) Medical History (Updated 03/09/22 @ 09:16 by Brianda Stack DO) Anxiety Cervicalgia Encounter for smoking cessation counseling Gingivitis HTN (hypertension) Hyperlipidemia Obesity Other injury of chest wall Panic disorder Preventative health care PTSD (post-traumatic stress disorder) Radiculopathy affecting upper extremity Repetitive strain injury of shoulder Spinal cord injuries Surgical History (Updated 03/08/22 @ 14:05 by Xochitl Walden RN) S/P cervical spinal fusion S/P shoulder replacement Social History Smoking/Tobacco Use Status: Current every day Tobacco Type: cigarettes Smoking risk assessment performed?: Yes Alcohol Intake: former Drug use: Occasionally Substance use type: marijuana and crack/cocaine Details: crack--2 days ago-smoked Do you feel safe at home: Yes Do you feel safe in your relationship?: Yes
--- NOTE | 2022-03-10 15:01 | PDOC.CMDIS ---
- If Service Date Differs Date of service: 03/10/22 Time of Service: 15:01 LACE Index Scoring Tool - Questions: Length of Stay (in days): 2 Acuity (Admit via E.D.?): Yes E.D. Visits: 3 - Answers: Total Score: 8 Risk of Readmission: Low Risk Care Management Discharge Reason for Hospitalization: Cellulitis, Abscess, Infected sebaceous cyst of skin Discharge Plan: Vipul is discharge home via private vehicle with a friend. [facility] was able to provide patient with 7 days RX for Bactrim, per MD request. Vipul will follow up with the Surgical Clinic for wound care on 03/18/22 and his PCP for HTN/Diabetes management on 03/24/22 as scheduled. Patient/Family Education Needs: Review discharge instructions, limitations, medications and plan to follow up with Surgical Clinic and PCP. Ask me three. Services Needed at Discharge: Outpatient Therapy (Surgical Clinic (wound care))
== END 2022-03-10 16:36 | disposition home or self-care (01) | DRG 603 ==
PROVIDERS: Admitting Provider Surgery; PCP Family Medicine; Visit Provider Surgery
DX: L02.412 Cutaneous abscess of left axilla (principal); L03.112 Cellulitis of left axilla; E11.9 Type 2 diabetes mellitus without complications; F19.10 Other psychoactive substance abuse, uncomplicated; Z86.73 Personal history of transient ischemic attack (TIA), and cerebral infarction without residual deficits; Z22.322 Carrier or suspected carrier of Methicillin resistant Staphylococcus aureus; I10 Essential (primary) hypertension; E78.5 Hyperlipidemia, unspecified; E66.9 Obesity, unspecified; Z68.35 Body mass index [BMI] 35.0-35.9, adult; F41.0 Panic disorder [episodic paroxysmal anxiety]; F17.210 Nicotine dependence, cigarettes, uncomplicated; F14.10 Cocaine abuse, uncomplicated; F12.90 Cannabis use, unspecified, uncomplicated; K05.10 Chronic gingivitis, plaque induced; L72.3 Sebaceous cyst
CPT/HCPCS: 36415; 80053; 87040; 87081; 87635; 80202; 83036; 85025; 86140; J1885

== ENCOUNTER 2022-05-17 17:08 | Outpatient (REF) | payer MEDICAID, SELFPAY ==
[2022-05-17 18:25] LABS: ALT 19 U/L (16-63); AST 22 U/L (15-37); Albumin 3.3 g/dL (3.4-5.0); Alkaline Phosphatase 97 U/L (46-116); Anion Gap 7.6 mmol/L (3-11); BUN 15 mg/dL (7-18); Bilirubin, Total 0.6 mg/dL (0.2-1.0); CO2 27.4 mmol/L (21.0-32.0); CREATININE 1.4 mg/dL (0.70-1.30); Calcium 8.7 mg/dL (8.5-10.1); Chloride 104 mmol/L (98-107); Estimated GFR 58.99 (mL/min/1.73m2); Glucose 132 mg/dL (74-106); Magnesium 2.1 mg/dL (1.8-2.4); Potassium 4.7 mmol/L (3.5-5.1); Sodium 139 mmol/L (136-145); TSH (W/Ref FT4) 1.39 uIU/mL (0.36-3.74); Total Protein 8.2 g/dL (6.4-8.2)
[2022-05-17 21:01] LABS: Calculated LDL 156 mg/dL (<100); Cholesterol 223 mg/dL (<200); HDL Cholesterol 42 mg/dL (40-60); Triglyceride 129 mg/dL (<150)
== END 2022-05-17 17:09 | disposition home or self-care (01) ==
LOC: NCHCN 17:08
PROVIDERS: PCP Family Medicine; Visit Provider Physician Assistant Medical
DX: E11.9 Type 2 diabetes mellitus without complications (principal); E78.5 Hyperlipidemia, unspecified; I10 Essential (primary) hypertension
CPT/HCPCS: 80053; 80061; 83735; 84443

== ENCOUNTER 2022-10-29 13:21 | Outpatient (REF) | payer MEDICAID, SELFPAY ==
[2022-10-29 15:28] LABS: ALT 40 U/L (16-63); AST 30 U/L (15-37); Albumin 3.5 g/dL (3.4-5.0); Alkaline Phosphatase 106 U/L (46-116); BUN 19 mg/dL (7-18); Bilirubin, Total 0.9 mg/dL (0.2-1.0); CREATININE 0.9 mg/dL (0.70-1.30); Calcium 9.3 mg/dL (8.5-10.1); Calculated LDL 108 mg/dL (<100); Chloride 99 mmol/L (98-107); Cholesterol 180 mg/dL (<200); Estimated GFR 99.62 (mL/min/1.73m2); Glucose 137 mg/dL (74-106); HDL Cholesterol 49 mg/dL (40-60); Potassium 4.8 mmol/L (3.5-5.1); Sodium 134 mmol/L (136-145); Total Protein 7.9 g/dL (6.4-8.2); Triglyceride 118 mg/dL (<150)
[2022-10-29 15:55] LABS: Hemoglobin A1C 6.6 % (<5.7)
== END 2022-10-29 13:22 | disposition home or self-care (01) ==
LOC: NCHCN 13:21
PROVIDERS: PCP Family Medicine; Visit Provider Physician Assistant Medical
DX: E11.9 Type 2 diabetes mellitus without complications (principal)
CPT/HCPCS: 80053; 80061; 83036

== ENCOUNTER 2022-11-22 02:06 | Outpatient (CLI) | payer MEDICAID, SELFPAY ==
--- NOTE | 2022-11-22 07:30 | DI.MRI_ITS ---
Exam(s) MR BRAIN WO EXAM: MR BRAIN WO CLINICAL HISTORY: new daily persistant headaches,g44.52 TECHNIQUE: Multiplanar multisequence MRI of the brain was performed. COMPARISON: CT CT HEAD - STROKE PROTOCOL from 08/24/2019 MR MR LIMITED EXAM from 08/24/2019 FINDINGS: VENTRICLES AND EXTRA AXIAL SPACES: Normal in size and morphology for the patient's age. SHIFT: None. CEREBRAL PARENCHYMA: Mild atrophy. Scattered foci of high signal consistent with microvascular disea se. No focus of restricted diffusion to suggest acute infarct. No space-occupying lesion identified. HEMORRHAGE: None. BRAINSTEM/CEREBELLUM: Normal. VISUALIZED PARANASAL SINUSES/MASTOIDS:Minimal mucosal thickening at the floor of the right maxillary sinus. [place]: Normal flow void. PITUITARY GLAND: Unremarkable. ORBITS: Unremarkable. IMPRESSION: Mild atrophy and white matter changes of small vessel disease. No acute abnormality. DATA REPOSITORY:
== END 2022-11-22 02:26 ==
LOC: DI 02:06
PROVIDERS: PCP Family Medicine; Visit Provider Nurse Practitioner Adult Health
DX: G44.52 New daily persistent headache (NDPH) (principal); I67.89 Other cerebrovascular disease; G31.89 Other specified degenerative diseases of nervous system
CPT/HCPCS: 70551

== ENCOUNTER 2023-02-04 09:14 | Outpatient (CLI) | payer MEDICAID, SELFPAY | END 2023-02-04 09:15 | disposition home or self-care (01) | PROVIDERS: PCP Family Medicine; Visit Provider Physician Assistant Medical | DX: I49.9 Cardiac arrhythmia, unspecified (principal) | CPT/HCPCS: 93246 ==

== ENCOUNTER 2023-10-03 13:17 | Emergency (ER) | payer MEDICAID, SELFPAY ==
[2023-10-03 13:21] VITALS: BP 180/92; PULSE 90; RESP 17; TEMP 36.8; O2SAT 97
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
[2023-10-03 14:20] LABS: Abs Immature Grans 0.06 10^3/uL (0.0-0.06); Absolute Basophil Count 0.06 10^3/uL (0.0-0.2); Basophils % 0.5; Eosinophils % 1.3; HCT 46.7 % (40.0-50.0); HGB 14.9 g/dL (13.5-17.5); Immature Grans % 0.5; Lymphocytes % 14.5; MCH 24.4 pg (27.0-33.0); MCHC 31.9 % (32.0-36.0); MCV 76 fL (80-95); MPV 10.1 fL (8.0-11.0); Monocytes % 6.6; Neutrophils % 76.6; Platelet Count 227 10^3/uL (130-400); RBC 6.11 10^6/uL (4.36-5.78); RDW 13.3 % (11.8-14.1); RDW-SD 36.3 fL; WBC 12.79 10^3/uL (4.4-10.8)
[2023-10-03 14:21] LABS: Absolute Eosinophil Count 0.17 10^3/uL (0.0-0.7); Absolute Lymphocyte Count 1.85 10^3/uL (1.2-3.4); Absolute Monocyte Count 0.84 10^3/uL (0.1-0.8)
[2023-10-03] MEDS: ACETAMINOPHEN 1,000 MG/100 ML BTL 400 MG IVPB (14:23)
[2023-10-03] MEDS: Lidocaine 5% Patch 1 PATCH TP (14:23)
[2023-10-03] MEDS: Normal Saline 500 ML 1000 ML IV (14:24)
[2023-10-03 14:33] LABS: ALT 37 U/L (16-63); AST 25 U/L (15-37); Albumin 3.3 g/dL (3.4-5.0); Alkaline Phosphatase 92 U/L (46-116); Anion Gap 8.6 mmol/L (3-11); BUN 15 mg/dL (7-18); CO2 28.4 mmol/L (21.0-32.0); CREATININE 1.1 mg/dL (0.70-1.30); Calcium 8.8 mg/dL (8.5-10.1); Chloride 103 mmol/L (98-107); Estimated GFR 77.81 (mL/min/1.73m2); Glucose 159 mg/dL (74-106); Potassium 4.4 mmol/L (3.5-5.1); Sodium 140 mmol/L (136-145); Total Protein 7.4 g/dL (6.4-8.2)
[2023-10-03] MEDS: Omnipaque 350 MG/ML 100 ML BTL IJ (15:34)
[2023-10-03] MEDS: Normal Saline - Diluent 50 ML VIAL IJ (15:34)
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
--- NOTE | 2023-10-03 17:02 | NUR.NOTE ---
Referral given to Care Management to Spine Team [facility] [place], for C4 spinous process fx, in [place] collar. Within 1 weeks. Nursing Note:
[2023-10-03 17:07] VITALS: BP 154/80; PULSE 78; RESP 17; TEMP 36.8; O2SAT 97
== END 2023-10-03 17:21 | disposition home or self-care (01) ==
PROVIDERS: Emergency Provider Emergency Medicine; PCP Family Medicine
DX: S12.301A Unspecified nondisplaced fracture of fourth cervical vertebra, initial encounter for closed fracture (principal); S00.01XA Abrasion of scalp, initial encounter; S80.211A Abrasion, right knee, initial encounter; E11.9 Type 2 diabetes mellitus without complications; I10 Essential (primary) hypertension; Z98.1 Arthrodesis status; Z86.73 Personal history of transient ischemic attack (TIA), and cerebral infarction without residual deficits; F17.210 Nicotine dependence, cigarettes, uncomplicated; Z79.84 Long term (current) use of oral hypoglycemic drugs; V47.5XXA Car driver injured in collision with fixed or stationary object in traffic accident, initial encounter
CPT/HCPCS: 74177; 80053; 96374; 99285; 70450; 71260; 72125; 85025; 99284; J0131; J3490

== ENCOUNTER 2023-10-05 16:14 | Emergency (ER) | payer MEDICAID, SELFPAY ==
[2023-10-05] VITALS (14 sets, daily range): BP systolic 182–233; BP diastolic 122–148; PULSE 64–76; RESP 16; TEMP 36.4; O2SAT 89–100
--- NOTE | 2023-10-05 16:15 | RT.EKG_ITS ---
APPROVED REPORT Exam: Resting ECG Reason for Exam: sob Patient Location: E HR:66 bpm ECG Measurements Heart Rate 66 AXIS MS 172 P 66 QRSd 89 QRS 21 QT 447 T 41 QTc 468 Conclusion Sinus rhythm normal axis no acute st segment changes
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
--- NOTE | 2023-10-05 17:24 | W.ED.GENAD ---
HPI General Date/Time Provider Initiated Documentation: 10/05/23 16:18. Limitations to Documentation: no limitations. Information obtained by: patient. HPI Narrative: 58-year-old gentleman with past medical history of hypertension, diabetes, polysubstance abuse, recent back injury presents for evaluation of cough. Reports that he has been coughing for the last week. Cough is nonproductive. Seems to have started after smoking crack. Patient denies any chest pain, just discomfort when he coughs. He has ongoing left upper extremity symptoms that have been present since his diagnosis of back trauma and he has surgery scheduled for this later this week. Related Data Home Medications Medication Instructions Recorded Confirmed atenolol 50 mg tablet 50 mg PO DAILY 08/19/13 10/03/23 albuterol sulfate 90 mcg/actuation 2 puff inhalation .COMPLEX PRN 11/08/18 10/03/23 aerosol inhaler (ProAir HFA) trazodone 50 mg tablet 50 - 100 mg PO HS PRN PRN 11/08/18 10/03/23 atorvastatin 40 mg tablet 40 mg PO DAILY 05/14/21 10/03/23 blood [facility]/14[facility] 11/25/22 Verio test strips) blood-glucose meter (OneTouch 05/14/21 11/25/22 UltraMini kit) hydrochlorothiazide 25 mg tablet 25 mg PO DAILY 05/14/21 10/03/23 lancets ([facility] UltraSoft 05/14/21 11/25/22 Lancets) metformin 500 mg tablet,extended 500 mg PO DAILY 05/14/21 10/03/23 release 24 hr venlafaxine 150 mg 150 mg PO DAILY 05/14/21 10/03/23 capsule,extended release 24 hr amlodipine 5 mg tablet 5 mg PO DAILY 10/14/22 10/03/23 lorazepam 0.5 mg tablet 0.5 mg PO DAILY PRN anxiety #2 tabs 10/19/22 10/03/23 methadone 5 mg/5 mL oral solution 115 mg PO DAILY 10/19/22 10/03/23 topiramate 25 mg tablet (Topamax) 25 mg PO QHS #30 tabs 11/25/22 10/03/23 gabapentin 300 mg capsule 900 mg PO BID 10/03/23 10/03/23 Previous Rx's Medication Instructions Recorded lorazepam 0.5 mg tablet 0.5 mg PO DAILY PRN anxiety #2 tabs 10/19/22 topiramate 25 mg tablet (Topamax) 25 mg PO QHS #30 tabs 11/25/22 Allergies Allergy/AdvReac Type Severity Reaction Status Date / Time mustard Allergy Severe Unverified 10/03/23 13:49 pregabalin [From Lyrica] Allergy Severe Unverified 10/03/23 13:49 venom-wasp Allergy Intermediate Verified 10/03/23 13:49 bupropion [From Wellbutrin] Allergy Verified 10/03/23 13:49 hydrocodone AdvReac Intermediate upset Unverified 10/03/23 13:49 stomach codeine AdvReac Nausea Unverified 10/03/23 13:49 tramadol AdvReac Uncoded 11/25/22 14:57 General Stated Complaint: Orthopedic ELKE: 3 PFSH All Active Problems Hypertension (Chronic) Paresthesia and pain of left extremity (Acute) Cough (Acute) Fracture of spinous process of cervical vertebra (Acute) New persistent daily headache (Acute) Infected sebaceous cyst of skin (Acute) Type II diabetes mellitus (Acute) Cellulitis of chest wall (Acute) Substance abuse (Acute) Community acquired pneumonia (Acute) Medical History Depression, major, recurrent Decreased visual acuity Constipation Edema Boil of upper extremity Orthopnea Elevated LFTs History of TIAs Disturbance in speech Dysphasia Neuropathic pain Abscess of axilla, left Cough Lung nodule Abscess of chest wall Ear disorder Migraine Smoker CVA (cerebrovascular accident) HTN (hypertension) PTSD (post-traumatic stress disorder) Hyperlipidemia Other injury of chest wall Panic disorder Radiculopathy affecting upper extremity Obesity Repetitive strain injury of shoulder Gingivitis Spinal cord injuries Anxiety Cervicalgia Preventative health care Encounter for smoking cessation counseling Surgical History S/P shoulder replacement S/P cervical spinal fusion Social History Smoking/Tobacco Use Status: Current every day Tobacco Type: cigarettes Smoking risk assessment performed?: Yes Alcohol Intake: former Drug use: Occasionally Substance use type: marijuana and crack/cocaine Details: crack use 5-6 days ago Do you feel safe at home: Yes Do you feel safe in your relationship?: Yes Exam Narrative Exam Narrative: Review of Systems: All systems reviewed & are unremarkable except as noted in HPI and below Well-developed, no acute distress NACT wearing an aspen collar PERRL, normal conjunctiva RRR, +hypertension Unlabored respiratory effort, clear breath sounds, no wheezing Nondistended abdomen Extremities w/o deformity, no cyanosis, no edema No rashes or lesions. no focal neurologic deficits, +parasthesia no weakness Appropriate mood and affect Course Vital Signs Vital signs: Vital Signs Temperature 36.4 C L 10/05/23 16:18 Pulse 76 10/05/23 16:18 Respiratory Rate 16 10/05/23 16:18 Blood Pressure 233/124 H 10/05/23 16:18 Pulse Oximetry 96 10/05/23 16:18 Temperature 36.4 C L 10/05/23 16:18 Temperature Source Tympanic 10/05/23 16:18 Pulse 76 10/05/23 16:18 Respiratory Rate 16 10/05/23 16:18 Respiratory Effort Normal 10/05/23 16:23 Blood Pressure 233/124 H 10/05/23 16:18 Pulse Oximetry 96 10/05/23 16:18 Oxygen Delivery Method Room Air 10/05/23 16:18 Oxygen Flow Rate 0 10/05/23 16:18 Pain Level 2 10/05/23 16:23 Medical Decision Making Evaluation of cough. Initial differential includes pneumonia, viral illness, pneumonitis, substance abuse. At this time the patient has no significant sick symptoms, no hypoxia or increased work of breathing. He has normal breath sounds. His blood pressure is elevated, he has a long standing history of hypertension. In this time is asymptomatic. He has complaints of left upper extremity paresthesias and pain have been ongoing since his vertebral fracture and do not need to be addressed today as there is no acute neurologic deficit. Chest x-ray was obtained to evaluate for acute cardiopulmonary etiology of cough, and this x-ray is unremarkable. Advised him to stop smoking crack. Continue his daily medications and follow-up with his surgeon for additional management for his ongoing surgical issues. Medical Records Medical records reviewed: Yes I reviewed the patient's medical records. Quality:[facility] Health Related Social Needs: No Data to Display Discharge Plan Disposition Patient Disposition: Home Discharge Details Clinical Impression: Cough, Fracture of spinous process of cervical vertebra, Substance abuse, Paresthesia and pain of left extremity, Hypertension Primary Care Provider: Mojgan Prater V ED Provider: Marcelo Greco Home Meds and New Rx's Prescriptions: No Action trazodone 50 mg tablet 50 - 100 mg PO HS PRN PRN albuterol sulfate [ProAir HFA] 90 mcg/actuation HFA aerosol inhaler 2 puff IH .COMPLEX PRN Patient Comments: 2 puff IH before exercise as needed PRN; Rx Instructions: 2 puff IH before exercise as needed PRN; methadone 5 mg/5 mL solution 115 mg PO DAILY topiramate [Topamax] 25 mg tablet 25 mg PO QHS Qty: 30 3RF lorazepam 0.5 mg tablet 0.5 mg PO DAILY PRN (Reason: anxiety) Qty: 2 0RF Rx Instructions: Take one tab 20-30 min before MRI. Repeat after 30 min if needed. amlodipine 5 mg tablet 5 mg PO DAILY atenolol 50 MG tablet 50 mg PO DAILY atorvastatin 40 mg tablet 40 mg PO DAILY Patient Comments: TAKE 1 TABLET BY MOUTH EVERY DAY hydrochlorothiazide 25 mg tablet 25 mg PO DAILY Patient Comments: TAKE 1/2 TABLET BY MOUTH DAILY FOR 1 TO 2 WEEKS THEN INCREASE TO 1 TABLET DAILY metformin 500 mg tablet extended release 24 hr 500 mg PO DAILY Patient Comments: TAKE 1 TABLET BY MOUTH EVERY DAY venlafaxine 150 mg capsule,extended release 24hr 150 mg PO DAILY Patient Comments: TAKE 1 CAPSULE BY MOUTH DAILY (DME) lancets [OneTouch UltraSoft Lancets] [facility] MISCELLANEOUS Rx Instructions: USE ONCE DAILY (DME) OneTouch Verio test strips Strip MISCELLANEOUS Rx Instructions: TEST DAILY (DME) blood-glucose meter [OneTouch UltraMini] Kit MISCELLANEOUS gabapentin 300 mg capsule 900 mg PO BID Patient Comments: TAKE 3 CAPSULES BY MOUTH TWICE DAILY Discharge Instructions Instructions: Acute Cough (ED) Additional Instructions: Please avoid using drugs as this will contribute to your hypertension and cough. You can take [id number] cough medications and lozenges. Please follow-up with your surgeon as scheduled for assessment of your ongoing fractures and left upper extremity symptoms. Discharge Data Discharge Date/Time-TO BE ENTERED AT DEPARTURE: 10/05/23 17:35
== END 2023-10-05 17:35 | disposition home or self-care (01) ==
PROVIDERS: Emergency Provider Emergency Medicine; PCP Family Medicine
DX: R20.0 Anesthesia of skin (principal); R05.9 Cough, unspecified; F19.20 Other psychoactive substance dependence, uncomplicated; E11.9 Type 2 diabetes mellitus without complications; I10 Essential (primary) hypertension; Z98.1 Arthrodesis status; Z79.84 Long term (current) use of oral hypoglycemic drugs; Z86.73 Personal history of transient ischemic attack (TIA), and cerebral infarction without residual deficits
CPT/HCPCS: 93005; 99283; 71046; 93010; 99284

== ENCOUNTER → 2023-11-07 02:30 | Outpatient (CLI) | payer MEDICAID, SELFPAY ==
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
== END ==
PROVIDERS: PCP Family Medicine; Visit Provider Physician Assistant Medical
DX: Z98.890 Other specified postprocedural states (principal); S12.9XXD Fracture of neck, unspecified, subsequent encounter; X58.XXXD Exposure to other specified factors, subsequent encounter; V89.2XXD Person injured in unspecified motor-vehicle accident, traffic, subsequent encounter
CPT/HCPCS: 72040

== ENCOUNTER 2023-11-07 13:54 | Outpatient (CLI) | payer MEDICAID, SELFPAY ==
[2023-11-07 10:51] LABS: Hemoglobin A1C 6.3 % (<5.7)
[2023-11-07 11:21] LABS: Calculated LDL 143 mg/dL (<100); Cholesterol 208 mg/dL (<200); HDL Cholesterol 51 mg/dL (40-60); Triglyceride 73 mg/dL (<150)
[2023-11-07 18:19] LABS: PSA, Screening 0.5 ng/mL (<=3.5)
== END 2023-11-07 13:55 | disposition home or self-care (01) ==
LOC: LBO 13:54
PROVIDERS: PCP Family Medicine; Visit Provider Physician Assistant Medical
DX: E11.9 Type 2 diabetes mellitus without complications (principal); Z12.5 Encounter for screening for malignant neoplasm of prostate
CPT/HCPCS: 36415; 80061; 84153; 83036

== ENCOUNTER 2024-02-10 13:44 | Outpatient (REF) | payer MEDICAID, SELFPAY ==
[2024-02-10 16:16] LABS: ALT 30 U/L (16-63); AST 21 U/L (15-37); Albumin 3.4 g/dL (3.4-5.0); Alkaline Phosphatase 103 U/L (46-116); Anion Gap 6.4 mmol/L (3-11); BUN 19 mg/dL (7-18); Bilirubin, Total 0.6 mg/dL (0.2-1.0); CO2 27.6 mmol/L (21.0-32.0); CREATININE 0.9 mg/dL (0.70-1.30); Calcium 8.8 mg/dL (8.5-10.1); Calculated LDL 131 mg/dL (<100); Chloride 104 mmol/L (98-107); Cholesterol 197 mg/dL (<200); Glucose 171 mg/dL (74-106); HDL Cholesterol 52 mg/dL (40-60); Potassium 4.5 mmol/L (3.5-5.1); Sodium 138 mmol/L (136-145); Total Protein 7.9 g/dL (6.4-8.2); Triglyceride 74 mg/dL (<150)
== END 2024-02-10 13:45 | disposition home or self-care (01) ==
LOC: NCHCN 13:44
PROVIDERS: PCP Family Medicine; Visit Provider Physician Assistant Medical
DX: E78.5 Hyperlipidemia, unspecified (principal)
CPT/HCPCS: 80053; 80061

== ENCOUNTER 2024-05-09 11:55 | Outpatient (REF) | payer MEDICAID, SELFPAY ==
--- OUTSIDE RECORDS SUMMARY | 2024-05-09 11:58 | XMS_ITS | Encounter Summary ---
Author Organization [facility] [place] [address] Care Team Providers Care Alteration Tailor Name Role Phone Mojgan Prater MD Primary Care Provider Encounter Details Date Type Department Care Team (Late st Contact Info) Description 11/07/2023 Ancillary Procedure [place] [id number] Mojgan Prater MD [address] [place] [address] Social History Tobacco Use Types Packs/Day Years Used Date Smoking Tobacco: Never Assessed Sex and Gender Information Value Date Recorded Sex Assigned at Not on file Gender Identity Not on file Sexual Orientation Not on file documented as of this encounter Plan of Treatment Not on file documented as of this encounter Procedures Procedure Name Priority Date/Time Associated Diagnosis Comments FILM LIBRARY STORAGE ONLY DX SPINE Routine 11/07/2023 12:00 AM EST documented in this encounter Results * Film Library- Storage Only DX Spine (11/07/2023 12:00 AM EST) Narrative [facility] - 11/08/2023 7:17 AM EST This exam is auto-finalizing. It's purpose is for storage only. Mojgan Prater MD IMG FILM LIBRARY ORD ERABLES [place], [place] documented in this encounter Visit Diagnoses Not on filedocumented in this encounter Care Teams Alteration Tailor Relationship Specialty Start Date End Date Mojgan Prater MD [address] [employer], [place] [id number] PCP - General Family Medicine 10/07/23 documented as of this encounter
--- OUTSIDE RECORDS SUMMARY | 2024-05-09 11:58 | XMS_ITS | Encounter Summary ---
Author Organization [facility] Address [address] [facility] [place] [address] Care Team Providers Care Billing Collections Specialist Name Role Phone Unknown Primary Care Provider Unavailabl e Encounter Details Date Type Department Care Team (Late st Contact Info) Description 10/03/2023 12:10 AM EST Ancillary Procedure Radiology at [place] [id number] Elly Howe MD [facility] [address] [place] [address] Social History Tobacco Use Types Packs/Day Years [...] Associated Diagnosis Comments FILM LIBRARY STORAGE ONLY CT SPINE Routine 10/03/2023 12:10 AM EST documented in this encounter Results * Film Library- Storage Only CT Spine (10/03/2023 12:10 AM EST) Narrative [facility] - 10/05/2023 6:01 PM EST This exam is auto-finalizing. It's purpose is for storage only. Elly Howe MD IMG FILM LIBRARY ORDERABLES [place], [place] documented in this encounter Visit Diagnoses Not on filedocumented in this encounter Care Teams Billing Collections Specialist Relationship Specialty Start Date End Date Unknown None PCP - General 08/11/10 10/06/23 documented as of this encounter
--- OUTSIDE RECORDS SUMMARY | 2024-05-09 11:58 | XMS_ITS | Encounter Summary ---
Author Organization [facility] Address [address] [place] [address] Care Team Providers Care Machinist Mechanic Name Role Phone Unavailable Primary Care Provider Unavailabl e Encounter Details Date Type Department Care Team (Late st Contact Info) Description 11/07/2023 Lab Requisition [facility] Pathology & Laboratory Medicine - [facility] [address] [place], [place] [id number] Outr Resulting Lab, Provider Social History Tobacco Use Types Packs/Day Years Used Date Smoking Tobacco: Never Assessed Interpersonal Safety Answer Date Record ed Physically Hurt Never 04/21/2020 Verbally Threaten Not on file 04/21/2020 Sex and Gender Information Value Date Recorded Sex Assigned at Not on file Gender Identity Not on file Sexual Orientation Not on file documented as of this encounter Plan of Treatment Not on file documented as of this encounter Procedures Procedure Name Priority Date/Time Associated Diagnosis Comments PSA TOTAL, DIAGNOSTIC Routine 11/07/2023 10:10 EST documented in this encounter Results * PSA TOTAL, DIAGNOSTIC (11/07/2023 10:10 EST) PSA 0.5 <=3.5 ng/mL 11/07/2023 18:14 EST [facility] Blood VENOUS BLOOD / Unknown 11/07/2023 10:10 EST 11/07/2023 17:02 EST Narrative [facility] - 11/07/2023 18:14 EST NOTE: Serum PSA concentration should not be interpreted as absolute evidence for the presence or absence of malignant disease. Assayed on Siemens ADVIA Centaur XPT using chemiluminescent technology.??Values obtained by using different assay methods cannot be used interchangeably. Provider Outr Resulting Lab CHEMISTRY & BLOOD GAS ORDERABLES [facility] [address] [place] [address] documented in this encounter Visit Diagnoses Not on filedocumented in this encounter
--- OUTSIDE RECORDS SUMMARY | 2024-05-09 11:58 | XMS_ITS | Referral Summary ---
Author Organization [facility] Address [address] [place] [address] Care Team Providers Care Dressing Room Attendant Name Role Phone Unavailable Primary Care Provider Unavailabl e Social History Tobacco Use Types Packs/Day Years Used Date Smoking Tobacco: Never Assessed Interpersonal Safety Answer Date Record ed Physically Hurt Never 04/21/2020 Verbally Threaten Not on file 04/21/2020 Sex and Gender Information Value Date Recorded Sex Assigned at Not on file Gender Identity Not on file Sexual Orientation Not on file Plan of Treatment Not on file Procedures Procedure Name Priority Date/Time Associated Diagnosis Comments HEPATITIS C AB W REFLEX TO HCV RNA BY PCR Routine 05/15/2021 10:35 EDT from Last 3 Months or Most Recently Relevant to Health Maintenance Results * HEPATITIS C AB W REFLEX TO HCV RNA BY PCR (05/15/2021 10:35 EDT) Hep C Antibody Negative Negative 05/18/2021 11:[address] [facility] Blood VENOUS BLOOD / Unknown 05/15/2021 10:35 EDT 05/15/2021 21:13 EDT Provider Outr Resulting Lab CHEMISTRY & BLOOD GAS ORDERABLES [facility] [address] [place] [address] from Last 3 Months or Most Recently Relevant to Health Maintenance Insurance Payer Benefit Plan / Group Subscriber ID Effective Dates Phone Address Type [place] [id number] 2020-Pres ent [address] [place] [address] Medicaid [place]
--- OUTSIDE RECORDS SUMMARY | 2024-05-09 11:58 | XMS_ITS | Encounter Summary ---
Author Organization [facility] Address [address] [place] [address] Care Team Providers Care Repack Room Worker Name Role Phone Unavailable Primary Care Provider Unavailabl e Encounter Details Date Type Department Care Team (Late st Contact Info) Description 08/03/2019 Lab Requisition [facility] Pathology & Laboratory Medicine - [facility] [address] [place] [address] Unknown, Provider, Social History Tobacco Use Types Packs/Day Years [...] REFLEX TO HCV RNA BY PCR Routine 08/02/2019 14:10 EST documented in this encounter Results * HEPATITIS C AB W REFLEX TO HCV RNA BY PCR (08/02/2019 14:10 EST) Hep C Antibody Negative Negative 08/06/2019 10:45 EST [facility] Blood VENOUS BLOOD / Unknown 08/02/2019 14:10 EST 08/03/2019 16:11 EST Provider Unknown CHEMISTRY & BLOOD GA S ORDERABLES [facility] [address] [place] [address] documented in this encounter Visit Diagnoses Not on filedocumented in this encounter
--- OUTSIDE RECORDS SUMMARY | 2024-05-09 11:58 | XMS_ITS | Encounter Summary ---
Author Organization [facility] Address [address] [place] [address] Care Team Providers Care Industrial Engineering Intern Name Role Phone Unavailable Primary Care Provider Unavailabl e Encounter Details Date Type Department Care Team (Late st Contact Info) Description 05/15/2021 Lab Requisition [facility] Pathology & Laboratory Medicine - [facility] [address] [place] [address] Outr Resulting Lab, Provider Social History Tobacco [...] RNA BY PCR Routine 05/15/2021 10:35 EDT documented in this encounter Results * HEPATITIS C AB W REFLEX TO HCV RNA BY PCR (05/15/2021 10:35 EDT) Hep C Antibody Negative Negative 05/18/2021 11:21 EDT [facility] Blood VENOUS BLOOD / Unknown 05/15/2021 10:35 EDT 05/15/2021 21:13 EDT Provider Outr Resulting Lab CHEMISTRY & BLOOD GAS ORDERABLES [facility] [address] [place] [address] documented in this encounter Visit Diagnoses Not on filedocumented in this encounter
--- OUTSIDE RECORDS SUMMARY | 2024-05-09 11:58 | XMS_ITS | Clinical Summary ---
Author Organization [facility] Address [address] [place] [address] Care Team Providers Care Shipyard Laborer Name Role Phone Unavailable Primary Care Provider [...] Orientation Not on file Plan of Treatment Health Maintenance Due Date Last Done Comments Hepatitis B Vaccine (1 of 3 - 19+ 3-dose series) 1984 COVID-19 Vaccine (2022-24 season) 2023 Hepatitis C Screen Completed 05/15/2021, 08/02/2019 Procedures Procedure Name Priority Date/Time Associated Diagnosis Comments HEPATITIS C AB W REFLEX TO HCV RNA BY PCR Routine 05/15/2021 10:35 EDT from Last 3 Months or Most Recently Relevant to Health Maintenance Results * HEPATITIS C AB W REFLEX TO HCV RNA BY PCR (05/15/2021 10:35 EDT) Hep C Antibody Negative Negative 05/18/2021 11:21 EDT [facility] Blood VENOUS BLOOD / Unknown 05/15/2021 10:35 EDT 05/15/2021 21:13 EDT Provider Outr Resulting Lab CHEMISTRY & BLOOD GAS ORDERABLES [facility] [address] [place] [address] from Last 3 Months or Most Recently Relevant to Health Maintenance Insurance Payer Benefit Plan / Group Subscriber ID Effective Dates Phone Address Type [place] [id number] 2020-Pres ent [id number] [address] [place] [id number] Medicaid [place]
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
--- OUTSIDE RECORDS SUMMARY | 2024-05-09 11:58 | XMS_ITS | Encounter Summary ---
Author Organization [facility] Address [address] [facility] [place] [address] Care Team Providers Care Soap Press Feeder Name Role Phone Unknown Primary Care Provider Unavailabl e Encounter Details Date Type Department Care Team (Late st Contact Info) Description 10/03/2023 12:05 AM EST Ancillary Procedure Radiology at [facility] [address] [facility] [id number] Elly Howe MD [address] [place] [address] Social History Tobacco Use Types Packs/Day Years [...] Diagnosis Comments FILM LIBRARY STORAGE ONLY CT HEAD AND SPINE Routine 10/03/2023 12:05 AM EST documented in this encounter Results * Film Library- Storage Only CT Head And Spine (10/03/2023 12:05 AM EST) Narrative [facility] - 10/05/2023 5:59 PM EST This exam is auto-finalizing. It's purpose is for storage only. Elly Howe MD IMG FILM LIBRARY ORDERABLES [place], [place] documented in this encounter Visit Diagnoses Not on filedocumented in this encounter Care Teams Soap Press Feeder Relationship Specialty Start Date End Date Unknown None PCP - General 08/11/10 10/06/23 documented as of this encounter
--- OUTSIDE RECORDS SUMMARY | 2024-05-09 11:58 | XMS_ITS | Clinical Summary ---
[place] [address] Care Team Providers Care Sizer Hand Name Role Phone Mojgan Prater MD Primary Care Provider [phone] Social History Tobacco Use Types Packs/Day Years Used Date Smoking Tobacco: Never Assessed Sex and Gender Information Value Date Recorded Sex Assigned at Not on file Gender Identity Not on file Sexual Orientation Not on file Plan of Treatment Health Maintenance Due Date Last Done Comments CT Colonography 1965 Colonoscopy 1965 Colorectal Cancer Screening 1965 FIT DNA 1965 FIT 1965 Sigmoidoscopy (10 year) with FIT yearly 1965 Sigmoidoscopy 1965 HIV screen 1983 Hepatitis C Screening 1983 Lipid Screening 1983 Hepatitis B vaccine (0-59 yrs) (1) 1984 Tdap adult 1984 Tetanus vaccine 1984 Zoster vaccine (1 of 2) 2015 Advance Directive 2020 Covid-19 Vaccine ( - 2022-24 season) 2023 Influenza (Flu) vaccine (1 o f 1 - Influenza standard series) 05/20/2024 Care Teams Sizer Hand Relationship Specialty Start Date End Date Mojgan Prater MD [address] [place] [address] PCP - General Family Medicine 10/07/23
--- OUTSIDE RECORDS SUMMARY | 2024-05-09 11:59 | XMS_ITS | Encounter Summary ---
Author Organization [facility] Address [facility] [place] [address] Care Team Providers Care Equipment Inspector Name Role Phone Unknown Primary Care Provider Unavailabl e Encounter Details Date Type Department Care Team (Late st Contact Info) Description 06/28/2016 Interpretation Only Radiology [facility] [place] [phone] Unknown None Social History Tobacco Use Types Packs/Day Years Used Date Smoking Tobacco: Never Assessed Sex and Gender Information Value Date Recorded Sex Assigned at Not on file Gender Identity Not on file Sexual Orientation Not on file documented as of this encounter Plan of Treatment Not on file documented as of this encounter Procedures Procedure Name Priority Date/Time Associated Diagnosis Comments XR FLUORO NO RAD <1HR - RADIOLOGY USE Routine 06/28/2016 6:29 AM EDT documented in this encounter Results * XR Fluoro <1Hr - Radiology Use (06/28/2016 6:29 AM EDT) Anatomical Region Laterality Modality N/A Radiographic Shari ging 06/28/2016 6:29 AM EDT Narrative 06/28/2016 6:29 AM EDT APD Historical Result Principal Zipper Measurer: ??SAL ??[facility] INTRAOPERATIVE FLUOROSCOPY: A total of 15.0 seconds (2.56 mGy) of intraoperative fluoroscopy was used by Dr Howe. ?? There was no Radiologist present during the exam. ??Two spot images document the study and demonstrate an anterior radiopaque instrument indicating the C5-6 vertebral body level as well as an intervertebral metallic spacer and screws seen between vertebral bodies in this exam, described as C5-6, C6-7 ACDF. ??The 2nd image is centered at the shoulders, does not exclude the cephalad cervical spine. ??Initial image demonstrates the level of C5-6. Sal Bonds MD [facility]/[place] [id number] Procedure Note Unknown - 03/19/2019 APD Historical Result Principal Zipper Measurer: SAL BONDS INTRAOPERATIVE FLUOROSCOPY: A total of 15.0 seconds (2.56 mGy) of intraoperative fluoroscopy was usedby Dr Howe. There was no Radiologist present during the exam. Two spot imagesdocument the study and demonstrate an anterior radiopaque instrument indicating the C5-6 vertebral body level aswell as an intervertebral metallic spacer and screws seen between vertebral bodies inthis exam, described as C5-6, C6-7 ACDF. The 2nd image is centered at the shoulders, does not exclude thecephalad cervical spine. Initial image demonstrates the level of C5-6. Sal Bonds MD [facility]/[place] [id number] Unknown IMG FLUORO ORDERABLE S documented in this encounter Visit Diagnoses Not on filedocumented in this encounter Care Teams Equipment Inspector Relationship Specialty Start Date End Date Unknown None PCP - General 08/11/10 10/06/23 documented as of this encounter
--- OUTSIDE RECORDS SUMMARY | 2024-05-09 11:59 | XMS_ITS | Continuity of Care Document ---
Author Organization [facility], [facility] Address [address] [place] [address] Assessment No assessment recorded. Plan of Treatment Reminders Order Date Submit Date Provider Last Modified By Organization Details Last Modified Time Details Appointments Office Visit 30 2023 11:30A M Not available Not available Not available Lab lipid panel, serum [email or web address] [facility] (Registration ), [address] [place] [address] [place], [address], 02/22/2024 08:51:27 CMP, serum or plasma 2023 024 [facility] [address] [place] [address] [place], [address], 02/10/2024 16:20:06 Referral None recorded. Procedures None recorded. Surgeries None recorded. Imaging None recorded. Medication Orders amlodipin e 5 mg tablet 2023 024 [facility] #[id number], [address] [place] [address], [id number], 02/27/2024 11:55:19 hydrochlo rothiazid e 25 mg tablet 2023 024 [email or web address] [id number], [address] [place] [address], [id number], 02/10/2024 13:54:51 Patient TargetsNo targets recorded. Patient InstructionsNo instructions recorded. Reason for Referral Spine Center Referral for Cl osed fracture of fourth cervical vertebra pt has previously been seen at this clinic, year 2015. [facility] ED requested follow up with spine center/surgeon. Referring Physician: Rima Barba, Family Medicine, Encounter Date: 10/04/2023 Problems Name Status Onset Date Resolution Date Notes Provider Name and Address Organization Details Recorded Time Essential hypertension Active 201202/01/2023 - Comments only - Rima Barba PA-C - Today's BP elevated, however, unclear as to whether patient has been compliant with antihypertens johnna regimen. Will ask that he continue on NORVASC 5mg QD, ATENOLOL 50mg QD, and HCTZ 25mg QD as RXd. Problem Code: I10; Problem Code Type: ICD-10; Not Available [facility] 3 04:46:05 Posttraumatic stress disorder Active 201207/03/2021 - Comments only - Mojgan Prater MD - /Anxiety/mood disorder. He is remaining quite stable on the combination of venlafaxine, risperidone. Uses trazodone at at bedtime. In a relationship which seems to be working well for him currently. Problem Code: F43.10; Problem Code Type: ICD-10; Not Available [facility] 3 04:46:05 Hyperlipidemi a Active 201202/01/2023 - Comments only - Rima Barba PA-C - - HYPERLIPIDEMI A Maintained on LIPITOR 40mg QHS Problem Code: E78.5; Problem Code Type: ICD-10; Not Available [facility] 3 04:46:05 Chest injury Active 2009 Problem Code: S29.8; Problem Code Type: ICD-10; Not Available [facility] 3 04:46:05 Panic disorder Active 2014 Problem Code: F41.0; Problem Code Type: ICD-10; Not Available [facility] 3 04:46:05 Recurrent major depression Active 201412/22/2020 - Comments only - Mojgan Prater MD - with PTSD, h/o angry outbursts. Bill has been stable for some time now on the venlafaxine and risperdal. He will let me know if worsening. He is in a relationship now and feels he is getting support. Problem Code: F33.9; Problem Code Type: ICD-10; Not Available [facility] 3 04:46:05 Obesity Active 2014 Problem Code: E66.9; Problem Code Type: ICD-10; Not Available [facility] 3 04:46:05 Cervical radiculopathy Active 201402/14/2020 - Comments only - Mojgan Prater MD - gabapentin is helping fairly well - reviewed appropriate use of ibuprofen and tylenol also Problem Code: M54.12; Problem Code Type: ICD-10; Not Available [facility] 3 04:46:05 Disorder of soft tissue of upper limb Active 2015 Problem Code: M70.911; Problem Code Type: ICD-10; Not Available [facility] 3 04:46:05 Psychoactive substance abuse Active 201506/14/2022 - Comments only - Rima Barba PA-C - On METHADONE via [facility] Problem Code: F19.10; Problem Code Type: ICD-10; Not Available [facility] 3 04:46:06 Visual impairment Active 201502/14/2020 - Comments only - Mojgan Prater MD - he is still awaiting an eye appt. due to COVID pandemic Problem Code: H54.7; Problem Code Type: ICD-10; Not Available [facility] 3 04:46:06 Postprocedura l state finding Active 2015 Problem Code: Z98.89; Problem Code Type: ICD-10; Not Available [facility] 3 04:46:06 Dental plaque with chronic gingivitis Active 2016 Problem Code: K05.10; Problem Code Type: ICD-10; Not Available [facility] 3 04:46:06 Traumatic or non-traumatic injury Active 2016 Problem Code: T14.8; Problem Code Type: ICD-10; Not Available [facility] 3 04:46:06 Anxiety disorder Active 201702/01/2023 - Comments only - Rima Barba PA-C - - ANXIETY Maintained on EFFEXOR XR 150mg QD and TRAZODONE 50-100mg QHS. Problem Code: F41.9; Problem Code Type: ICD-10; Not Available [facility] 3 04:46:06 Neck pain Active 201702/15/2019 - Comments only - Reynaldo Garcia - Stable with his current dose of gabapentin. He will continue the same. Problem Code: M54.2; Problem Code Type: ICD-10; Not Available [facility] 3 04:46:06 Adult health examination Active 201708/02/2019 - Comments only - Reynaldo Garcia - Encouraged him to continue his current healthy lifestyle regimen. Problem Code: Z00.00; Problem Code Type: ICD-10; Not Available [facility] 3 04:46:07 Tobacco use cessation education Active 201705/17/2022 - Comments only - Rima Barba PA-C - Patient declines to develop formal plan for smoking cessation today. OK to continue to use RFd PROAIR MDI PRN as rescue. Will advance discussion re: scheduling for low-dose CT with next visit. Problem Code: Z71.6; Problem Code Type: ICD-10; Not Available [facility] 3 04:46:07 Constipation Active 2018 Problem Code: K59.00; Problem Code Type: ICD-10; Not Available [facility] 3 04:46:07 Localized edema Active 201805/22/2019 - Comments only - Reynaldo Garcia - Stable. He will continue HCTZ. Problem Code: R60.0; Problem Code Type: ICD-10; Not Available [facility] 3 04:46:07 Type 2 diabetes mellitus without complication Active 201802/01/2023 - Comments only - Rima Barba PA-C - - DM2 Last A1C WNLs on METFORMIN XR 500mg QD. Patient encouraged to call to schedule overdue DM eye exam with [facility] at next available. Problem Code: E11.9; Problem Code Type: ICD-10; Not Available [facility] 3 04:46:07 Furuncle Active 201805/22/2019 - Comments only - Reynaldo Garcia - Excised the boil in the upper limb. Will send the wound lesion for culture. Prescribed Bactrim twice daily and advised him to refill the antibiotic if he gets another lesion. He will call if the boil has not improved by next week. Problem Code: L02.429; Problem Code Type: ICD-10; Not Available [facility] 3 04:46:07 Dyspnea Active 201808/02/2019 - Comments only - Reynaldo Garcia - /orthopnea. Ordered echocardiogra m. Will check NT-proBNP. Problem Code: R06.09; Problem Code Type: ICD-10; Not Available [facility] 3 04:46:07 Orthopnea Active 2018 Problem Code: R06.01; Problem Code Type: ICD-10; Not Available [facility] 3 04:46:08 Blood chemistry outside reference range Active 201808/02/2019 - Comments only - Reynaldo Garcia - Will check hepatitis C antibody. Problem Code: R79.89; Problem Code Type: ICD-10; Not Available [facility] 3 04:46:08 Transient cerebral ischemia Active 2018 Problem Code: G45.9; Problem Code Type: ICD-10; Not Available [facility] 3 04:46:08 Disturbance in speech Active 201812/22/2020 - Comments only - Mojgan Prater MD - , h/o with ? TIA - denies recurrent symptoms. This may have been psych related rather than vascular. Problem Code: R47.9; Problem Code Type: ICD-10; Not Available [facility] 3 04:46:08 Chest pain Completed 201809/11/2019 Problem Code: R07.9; Problem Code Type: ICD-10; Not Available [facility] 3 04:46:08 Dysphasia Active 201811/22/2019 - Comments only - Reynaldo Garcia - Doing well states post discharge from ER. Problem Code: R47.02; Problem Code Type: ICD-10; Not Available [facility] 3 04:46:08 Neuropathic pain Active 2020 Not Available [facility] 3 04:46:09 Abscess of left axilla Active 202003/09/2022 - Deteriorated - Maye Dykes LPN - Problem Code: L02.412; Problem Code Type: ICD-10; Not Available [facility] 3 04:46:09 Cough Active 202005/24/2021 - Comments only - Mojgan Prater MD - While hospitalized he had a sputum culture that grew Haemophilus. At this point he does seem to be clinically improving on the Bactrim and will continue the same. Problem Code: R05; Problem Code Type: ICD-10; Not Available [facility] 3 04:46:09 Lung field abnormal Active 202002/01/2023 - Comments only - Rima Barba PA-C - - PULMONARY NODULE, SMOKER Patient encouraged to call to schedule repeat CT imaging at [facility] at next available. Problem Code: R91.8; Problem Code Type: ICD-10; Not Available [facility] 3 04:46:09 Abscess of chest wall Active 2020 Problem Code: L02.213; Problem Code Type: ICD-10; Not Available [facility] 3 04:46:09 Disorder of left ear Active 2020 Problem Code: H93.92; Problem Code Type: ICD-10; Not Available [facility] 3 04:46:09 Migraine Active 202102/01/2023 - Comments only - Rima Barba PA-C - Established with [facility] neurology. Patient to f/u with specialty service provider as scheduled to discuss ?treatment failure on TOPAMAX. Problem Code: G43.909; Problem Code Type: ICD-10; Not Available [facility] 3 04:46:10 Nicotine dependence Active 2022 Problem Code: F17.200; Problem Code Type: ICD-10; Not Available [facility] 3 04:46:10 Cardiac arrhythmia Active 202202/01/2023 - Comments only - Rima Barba PA-C - Will arrange for ZIOPATCH at [facility] Problem Code: I49.9; Problem Code Type: ICD-10; Not Available [facility] 3 04:46:10 Acute pharyngitis Completed 201510/14/2017 Problem Code: J02.9; Problem Code Type: ICD-10; Not Available [facility] 3 04:46:10 Injury of chest wall Completed 200906/15/2023 Problem Code: 959.11; Problem Code Type: ICD-9; Not Available [facility] 3 04:46:10 Disorder of teeth AND/OR supporting structures Completed 201510/14/2017 Problem Code: K08.8; Problem Code Type: ICD-10; Not Available [facility] 3 04:46:11 Blood glucose outside reference range Completed 201810/26/2019 Problem Code: R73.09; Problem Code Type: ICD-10; Not Available [facility] 3 04:46:11 Pre-surgery evaluation Completed 201510/14/2017 Problem Code: Z01.818; Problem Code Type: ICD-10; Not Available [facility] 3 04:46:11 Localized edema Completed 201410/14/2017 Problem Code: R60.0; Problem Code Type: ICD-10; Not Available [facility] 3 04:46:11 History and physical examination, administrativ e Completed 201510/14/2017 Problem Code: Z02.89; Problem Code Type: ICD-10; Not Available [facility] 3 04:46:12 Disorder of shoulder Completed 201510/14/2017 Problem Code: M75.80; Problem Code Type: ICD-10; Not Available [facility] 3 04:46:12 Pneumonia Completed 201410/14/2017 Problem Code: J18.9; Problem Code Type: ICD-10; Not Available [facility] 3 04:46:12 Hypertensive disorder Completed 201206/15/2023 Not Available [facility] 3 04:46:12 Paresthesia Completed 201410/14/2017 Problem Code: R20.2; Problem Code Type: ICD-10; Not Available [facility] 3 04:46:13 Depressive disorder Active 2022 MALINI HUTCHISON MA [facility] 3 10:49:20 Problem Notes None recorded. Medical Equipment None Reported. Allergies Allergen ID Allergen Name Allergen Category Reaction Reaction Severity Criticality Documentation Date Start Date Code Code System Note Provider Name and Address Organization Details Recorded Time 22052 mustard seed allergeni c extract food,medi cation swelling severe Not available 07/29/20232015 64217 6 RxNorm Hives , Throa t swell ing Aller gyRea ction : 'Hive s, Throa t swell ing'; Not Available [facility] 3 16:29:42 75381 codeine medicatio n nausea mild Not available 07/29/20232014 2670 RxNorm N/V Aller gyRea ction : 'N/V' ; Aller gyCod e: '0040 95399 32'; Aller gyNam e: 'CODE INE'; Aller gyCon ceptT ype: 'NDC' ; Not Available [facility] 3 16:29:45 Medications Name Sig Start Date Stop Date Status Note LastModified by Organization Details LastModified Time cyclobenz aprine 10 mg tablet Take 1 tablet by mouth twice a day as needed 05/17 completed Not Available Not Available Not Available amoxicill in 500 mg capsule Take 1 cap by mouth twice daily 05/09 completed Not Available Not Available Not Available atorvasta tin 40 mg tablet TAKE 1 TABLET BY MOUTH ONE TIME PER DAY AT BEDTIME active Not Available Not Available No t Available venlafaxi ne ER 75 mg capsule,e xtended release 24 hr Take 1 by mouth daily 11/21 completed Not Available Not Available Not Available venlafaxi ne 75 mg tablet Take 1 tab daily 10/27 completed Not Available Not Available Not Available trazodone 50 mg tablet TAKE 1-2 TABLETS BY MOUTH AT BEDTIME active Not Available Not Available No t Available azithromy marguerite 250 mg tablet daily 07/31 completed [facility] Not Available Not Available Not Available ibuprofen 800 mg tablet 1 tid 01/17 completed Not Available Not Available Not Available Vicodin 5 mg-500 mg tablet 1 TAB every six hours 08/21 completed Not Available Not Available Not Available hydrocodo ne 5 mg-acetam inophen 325 mg tablet 1 QID prn 10/31 completed Not Available Not Available Not Available naltrexon e 50 mg tablet Take 1 tab by mouth daily 04/18 completed Not Available Not Available Not Available Nicoderm CQ 21 mg/24 hr daily transderm al patch Apply 1 patch external ly daily to hairless area. Rotate skin sites 04/18 completed Not Available Not Available Not Available ondansetr on HCl 4 mg tablet q6 hrs prn 07/31 completed [facility] Not Available Not Available Not Available Phenergan 25 mg tablet 1 TAB every six hours 02/05 completed Not Available Not Available Not Available venlafaxi ne ER 150 mg capsule,e xtended release 24 hr TAKE 1 CAPSULE BY MOUTH EVERY DAY active Not Available Not Available No t Available Neurontin 600 mg tablet Take 1 tablet by mouth every night 09/28 completed Not Available Not Available Not Available topiramat e 25 mg tablet TAKE 1 TABLET BY MOUTH EVERY DAY AT BEDTIME active Not Available Not Available No t Available amlodipin e 5 mg tablet TAKE 1 TABLET BY MOUTH EVERY DAY active Not Available Not Available No t Available divalproe x 500 mg tablet,de layed release 1 TAB TWICE DAILY 11/14 completed Not Available Not Available Not Available Wellbutri n SR 100 mg tablet, 12 hr sustained -release Take 1 by mouth daily for one week then twice daily 02/15 completed Not Available Not Available Not Available tramadol 50 mg tablet Take 1 tablet by mouth four times a day 09/02/ 2021 10/15 /2021 completed Not Available Not Available Not Available amoxicill in 500 mg tablet Take one tab by mouth three times a day 04/14 completed Dental prescrip tion Not Available Not Available Not Available simvastat in 40 mg tablet 1 TAB daily 02/05 completed Not Available Not Available Not Available risperido ne 2 mg tablet Take 1 tablet by mouth once a day 09/28 completed Not Available Not Available Not Available Tessalon Perles 100 mg capsule 1 cap three times daily prn cough 09/05 completed Not Available Not Available Not Available lorazepam 0.5 mg tablet TAKE 1 TABLET BY MOUTH 20 TO 30 MINUTES BEFORE MRI, MAY REPEAT AFTER 30 MINUTES IF NEEDED 02/12 completed Not Available Not Available Not Available Nicoderm CQ 14 mg/24 hr daily transderm al patch Apply 1 patch external ly daily to hairless area. Rotate skin sites 06/18 completed Not Available Not Available Not Available amlodipin e 10 mg tablet Take 1 tablet every day by oral route. 2023 active Not Available Not Available Not Avai lable doxycycli ne monohydra te 100 mg capsule Take 1 capsule by mouth twice a day 02/18 completed Not Available Not Available Not Available nortripty line 10 mg capsule 1 at hs, can increase to 2 at hs in a week 10/31 completed Not Available Not Available Not Available Nicorette 4 mg gum Chew 1gum every 2 hours, maximum of 24 per 24 hours 07/02 completed Not Available Not Available Not Available gabapenti n 300 mg capsule TAKE 3 CAPSULES BY MOUTH TWICE DAILY active Not Available Not Available No t Available Advil 200 mg tablet 3 tabs po bid prn 08/19 completed Not Available Not Available Not Available mirtazapi ne 45 mg tablet 1 TAB AT BEDTIME 11/14 completed Not Available Not Available Not Available diclofena c sodium 75 mg tablet,de layed release take one tab three times a day for 3 days then whenever needed 04/11 completed Dental prescrip tion Not Available Not Available Not Available cephalexi n 500 mg tablet Take 1 tablet by mouth four times a day for 10 days 03/09 completed [facility] 11/20/21 #40x0 by Paco Grimm Not Available Not Available Not Available hydrochlo rothiazid e 25 mg tablet TAKE 1 TABLET BY MOUTH ONCE DAILY 2023 active Not Available Not Available Not Avai lable Levaquin 500 mg tablet 1 po qday x 10 days 08/30 completed Not Available Not Available Not Available gabapenti n 100 mg capsule 1 tab qhs for 3 days then increase to 2 tabs for 3d then add in an AM dose. 10/03 completed Not Available Not Available Not Available methadone 10 mg/mL oral concentra te rx by [facility] - 115mg daily 2020 active Not Available Not Available Not Avai lable Tylenol-C odeine #3 300 mg-30 mg tablet 1 tab three times daily. 08/05 completed Not Available Not Available Not Available ibuprofen 600 mg tablet 1TAB three times daily 07/12 completed Not Available Not Available Not Available Naprosyn 500 mg tablet 1 TAB Twice a day 06/26 completed Not Available Not Available Not Available metformin ER 500 mg tablet,ex tended release 24 hr TAKE 1 TABLET BY MOUTH TWICE DAILY 2023 active Not Available Not Available Not Avai lable atenolol 50 mg tablet TAKE 1 TABLET BY MOUTH ONCE DAILY 2023 active Not Available Not Available Not Avai lable diazepam 5 mg tablet TAKE 1 TABLET BY MOUTH 30 MINUTES BEFORE PROCEDUR E DIRECTED . MAY REPEAT 1 TIME 02/12 completed Not Available Not Available Not Available methadone 5 mg/5 mL oral solution 77mg daily through [facility] 02/13 completed Not Available Not Available Not Available Ventolin HFA 90 mcg/actua tion aerosol inhaler INHALE TWO (2) PUFFS BY MOUTH ONCE DAILY NEEDED 2023 active Not Available Not Available Not Avai lable Bactrim DS 800 mg-160 mg tablet Take 1 tablet by mouth twice a day 03/09 completed Not Available Not Available Not Available Crestor 20 mg tablet Take 1 tablet every day by oral route. 2023 active Not Available Not Available Not Avai lable OneTouch UltraSoft Lancets Use 1 lancet as directed once a day 10/03 completed Prediabe jessica Not Available Not Available Not Available sildenafi l (pulmonar y hypertens ion) 20 mg tablet Take 1-2 tablet by mouth as directed as needed PRIOR TO SEXUAL ACTIVITY 2023 active Not Available Not Available Not Avai lablinda Lyrica 50 mg capsule Take 1 cap by mouth three times daily. 02/09 completed Not Available Not Available Not Available Vivitrol 380 mg intramusc ular suspensio n,extende d release 2015 active Not Available Not Available Not Avai lablinda OneTouch UltraMini kit Use 1 kit as directed once a day to check blood sugar 10/03 completed Not Available Not Available Not Available venlafaxi ne ER 150 mg tablet,ex tended release 24 hr Take 1 tablet every day by oral route. 2022 active Not Available Not Available Not Avsonia lablinda Nicorette 4 mg buccal lozenge 1 pcs PRN 04/18 completed Not Available Not Available Not Available OneTouch Verio test strips TEST ONCE DAILY active Not Available Not Available No t Available Chantix Continuin g Month Box 1 mg tablet Take 1 by mouth twice daily 06/26 completed Not Available Not Available Not Available Chantix Starting Month Box 0.5 mg (11)-1 mg (42) tablets in dose pack Take 1 as directed 06/26 completed Not Available Not Available Not Available Vicodin 5 mg-300 mg tablet 1 PO q6h prn 12/09 completed # 14 Cosmo Mejia PA [facility] Not Available Not Available Not Available Xylocaine Dental with Epinephri ne 2 %-1:100,0 00 injection cartridge q2 hrs 05/26 completed [facility] Not Available Not Available Not Available OneTouch Verio Flex Meter active Not Available Not Available Not Available Metamucil 0.4 gram capsule 1 daily 04/18 completed Not Available Not Available Not Available OneTouch Delica Plus Lancet 33 gauge USE TO TEST BLOOD SUGAR ONCE DAILY active Not Available Not Available No t Available Vitals Date Recorded Body height Heart rate Body mass index (BMI) Body weight Systolic blood pressure Diastolic blood pressure Provider Name and Address Organization Details Last Updated DateTime 4 179.07 cm 69 /min 40.7 kg/m2 363146. 17 g 195 mm[Hg] 118 mm[Hg] ROSA MARIA SHIRLEY RN [place] - [facility] 4 11:25:30 Social History None recorded. Functional Status None recorded. Mental Status None recorded. Family History Relationship Description Onset Age of this Age Resolved Age Notes Notes:*Problem: Updated: 05/22 Mother: alive age 87 pulm embolus, htn Father: age 56 cause tractor rolled over on him, ? [place] at time of accident Sisters: one, Viktoria, healthy overall Brothers: one half-brother, bad diabetic, type 1 , stomach cancer Children: 4 kids, all healthy Family History of: DVT - mother twice. Denies family history of prostate or colon cancer. Denies family history of respiratory disease. Medical History No medical history recorded. Immunizations Vaccine Type Date Status Provider Name and Address Organization Details Recorded Time Td (adult), 2 Lf tetanus toxoid, preservative free, adsorbed 10/14/2017 completed Not Available [facility] 07/29/2023 06:12:24 Tdap 12/07/2006 completed Not Available [facility] 06:12:24 Past Encounters Encounter ID Performer Location Encounter Start Date Encounter Closed Date Diagnosis/Indication Diagnosis SNOMED-CT Code [id number] RIMA BARBA PA-C [facility] [address] [place] [address] 02/10/2024 11:10:58 02/10/2024 13:13:37 Essential hypertension 90198923 Type 2 ruth betes mellitus without complication 542545242 Hyperlipidemia 36719452 Depressive disorder 3548 9007 Psychoacti ve substance abuse 94091670 Health Concerns Section Related Observation LastModified by Organization Detai ls LastModified Time None Recorded Concern Status LastModified by Organization Details LastModified Time None Recorded Payers Encounter Date Sequence Insurance Name Policy Number Policy Huizar Covered Member ID Huizar Member ID Guarantor Name 02/10/2024 1 [facility] (MEDICAID) Vipul Streeter [id number] Vipul Streeter Notes Date Note Type Note Provider Name and Address Organization Details Recorded Time 02/10/2024 text/html HPI Notes: 58y/o male presenting for 3m f/u HTN, DM2, chronic pain, substance abuse, and migraines. [address], [place], [address], [facility]. 02/13/2024 22:17:16
--- OUTSIDE RECORDS SUMMARY | 2024-05-09 11:59 | XMS_ITS | Continuity of Care Document ---
Author Organization [facility], [facility] Address [address] [place] [address] Assessment No assessment recorded. Plan of Treatment Reminders Order Date Submit Date Provider Last Modified By Organization Details Last Modified Time Details Appointments Office Visit 30 2023 11:30A M Not available Not available Not available Lab hemoglobi n A1C, fingersti ck 2023 024 [email or web address] [facility], [address] [place] [address], [id number], 02/27/2024 12:01:22 Referral None recorded. Procedures None recorded. Surgeries None recorded. Imaging None recorded. Medication Orders amoxicill in 500 mg capsule 2023 024 [facility] #[id number], [address] [place] [address], [id number], 05/09/2024 11:20:31 amlodipin e 10 mg tablet 2023 024 [facility] #[id number], [address] [place] [address], [id number], 02/27/2024 12:04:28 metformin ER 500 mg tablet,ex tended release 24 hr 2023 024 [facility] #[id number], [address] [place] [address], [id number], 02/27/2024 12:04:33 Patient TargetsNo targets recorded. Patient InstructionsNo instructions recorded. Reason for Referral Spine Center Referral for Cl osed fracture of fourth cervical vertebra pt has previously been seen at this clinic, year 2016. [facility] ED requested follow up with spine center/surgeon. Referring Physician: Rima Barba, Family Medicine, Encounter Date: 10/04/2023 Results Created Date Observation Date Name Description Value Unit Range Abnormal Flag LastModifiedBy Organization Detail LastModifiedTime 02/27/20 24 02/27/2024 hemog lobin A1C, finge rstic k hemoglobin A1C 7.4 % <5.7 Not Available [address], [address], 02/24/2024 14:08:06 Result Notes None recorded. Problems Name Status Onset Date Resolution Date [...] I10; Problem Code Type: ICD-10; Not Available [facility] 3 04:46:05 Posttraumatic stress disorder Active 201207/03/2021 - Comments only - Mojgan Prater MD - /Anxiety/mood disorder. He is remaining quite stable on the combination of venlafaxine, risperidone. Uses trazodone at at bedtime. In a relationship which seems to be working well for him currently. Problem Code: F43.10; Problem Code Type: ICD-10; Not Available [facility] 3 04:46:05 Hyperlipidemi a Active 201202/01/2023 - Comments only - Rima Barba PA-C - - HYPERLIPIDEMI A Maintained on LIPITOR 40mg QHS Problem Code: E78.5; Problem Code Type: ICD-10; Not Available [facility] 3 04:46:05 Chest injury Active 2009 Problem Code: S29.8; Problem Code Type: ICD-10; Not Available [facility] 3 04:46:05 Panic disorder Active 2014 Problem Code: F41.0; Problem Code Type: ICD-10; Not Available [facility] 3 04:46:05 Recurrent major depression Active 201412/22/2020 - Comments only - Mojgan Prater MD - with PTSD, h/o angry outbursts. Aleksandr has been stable for some time now on the venlafaxine and risperdal. He will let me know if worsening. He is in a relationship now and feels he is getting support. Problem Code: F33.9; Problem Code Type: ICD-10; Not Available [facility] 3 04:46:05 Obesity Active 2014 Problem Code: E66.9; Problem Code Type: ICD-10; Not Available [facility] 3 04:46:05 Cervical radiculopathy Active 201402/14/2020 - Comments only - Mojgan Prater MD - gabapentin is helping fairly well - reviewed appropriate use of ibuprofen and tylenol also Problem Code: M54.12; Problem Code Type: ICD-10; Not Available [facility] 3 04:46:05 Disorder of soft tissue of upper limb Active 2015 Problem Code: M70.911; Problem Code Type: ICD-10; Not Available [facility] 3 04:46:05 Psychoactive substance abuse Active 201506/14/2022 - Comments only - Rima Barba PA-C - On METHADONE via [facility] Problem Code: F19.10; Problem Code Type: ICD-10; Not Available [facility] 3 04:46:06 Visual impairment Active 201502/14/2020 - Comments only - Mojgan Prater MD - he is still awaiting an eye appt. due to COVID pandemic Problem Code: H54.7; Problem Code Type: ICD-10; Not Available [facility] 3 04:46:06 Postprocedura l state finding Active 2015 Problem Code: Z98.89; Problem Code Type: ICD-10; Not Available [facility] 3 04:46:06 Dental plaque with chronic gingivitis Active 2016 Problem Code: K05.10; Problem Code Type: ICD-10; Not Available [facility] 3 04:46:06 Traumatic or non-traumatic injury Active 2016 Problem Code: T14.8; Problem Code Type: ICD-10; Not Available [facility] 3 04:46:06 Anxiety disorder Active 201702/01/2023 - Comments only - Rima Barba PA-C - - ANXIETY Maintained on EFFEXOR XR 150mg QD and TRAZODONE 50-100mg QHS. Problem Code: F41.9; Problem Code Type: ICD-10; Not Available [facility] 3 04:46:06 Neck pain Active 201702/15/2019 - Comments only - Reynaldo Maci - Stable with his current dose of gabapentin. He will continue the same. Problem Code: M54.2; Problem Code Type: ICD-10; Not Available [facility] 3 04:46:06 Adult health examination Active 201708/02/2019 - Comments only - Reynaldo Kavonupi - Encouraged him to continue his current healthy lifestyle regimen. Problem Code: Z00.00; Problem Code Type: ICD-10; Not Available [facility] 3 04:46:07 Tobacco use cessation education Active 201705/17/2022 - Comments only - Rima Barba PA-C - Patient declines to develop formal plan for smoking cessation today. OK to continue to use RFd PROAIR MDI PRN as rescue. Will advance discussion re: scheduling for low-dose CT with next visit. Problem Code: Z71.6; Problem Code Type: ICD-10; Not Available [facility] 3 04:46:07 Constipation Active 2018 Problem Code: K59.00; Problem Code Type: ICD-10; Not Available [facility] 3 04:46:07 Localized edema Active 201805/22/2019 - Comments only - Reynaldo Udupi - Stable. He will continue HCTZ. Problem Code: R60.0; Problem Code Type: ICD-10; Not Available [facility] 3 04:46:07 Type 2 diabetes mellitus without complication Active 201802/01/2023 - Comments only - Rima Barba PA-C - - DM2 Last A1C WNLs on METFORMIN XR 500mg QD. Patient encouraged to call to schedule overdue DM eye exam with [facility] at next available. Problem Code: E11.9; Problem Code Type: ICD-10; Not Available [facility] 3 04:46:07 Furuncle Active 201805/22/2019 - Comments only - Reynaldo Garcia - Excised the boil in the upper limb. Will send the wound lesion for culture. Prescribed Bactrim twice daily and advised him to refill the antibiotic if he gets another lesion. He will call if the boil has not improved by next week. Problem Code: L02.429; Problem Code Type: ICD-10; Not Available [facility] 3 04:46:07 Dyspnea Active 201808/02/2019 - Comments only - Reynaldo Garcia - /orthopnea. Ordered echocardiogra m. Will check NT-proBNP. Problem Code: R06.09; Problem Code Type: ICD-10; Not Available [facility] 3 04:46:07 Orthopnea Active 2018 Problem Code: R06.01; Problem Code Type: ICD-10; Not Available [facility] 3 04:46:08 Blood chemistry outside reference range Active 201808/02/2019 - Comments only - Reynaldo Garcia - Will check hepatitis C antibody. Problem Code: R79.89; Problem Code Type: ICD-10; Not Available [facility] 3 04:46:08 Transient cerebral ischemia Active 2018 Problem Code: G45.9; Problem Code Type: ICD-10; Not Available [facility] 3 04:46:08 Disturbance in speech Active 201812/22/2020 - Comments only - Mojgan Prater MD - , h/o with ? TIA - denies recurrent symptoms. This may have been psych related rather than vascular. Problem Code: R47.9; Problem Code Type: ICD-10; Not Available [facility] 3 04:46:08 Chest pain Completed 201809/11/2019 Problem Code: R07.9; Problem Code Type: ICD-10; Not Available [facility] 3 04:46:08 Dysphasia Active 201811/22/2019 - Comments only - Reynaldo Jose - Doing well states post discharge from ER. Problem Code: R47.02; Problem Code Type: ICD-10; Not Available [facility] 3 04:46:08 Neuropathic pain Active 2020 Not Available [facility] 3 04:46:09 Abscess of left axilla Active 202003/09/2022 - Deteriorated - Maye Dykes LPN - Problem Code: L02.412; Problem Code Type: ICD-10; Not Available [facility] 3 04:46:09 Cough Active 202005/24/2021 - Comments only - Mojgan Prater MD - While hospitalized he had a sputum culture that grew Haemophilus. At this point he does seem to be clinically improving on the Bactrim and will continue the same. Problem Code: R05; Problem Code Type: ICD-10; Not Available [facility] 3 04:46:09 Lung field abnormal Active 202002/01/2023 - Comments only - Rima Barba PA-C - - PULMONARY NODULE, SMOKER Patient encouraged to call to schedule repeat CT imaging at [facility] at next available. Problem Code: R91.8; Problem Code Type: ICD-10; Not Available [facility] 3 04:46:09 Abscess of chest wall Active 2020 Problem Code: L02.213; Problem Code Type: ICD-10; Not Available [facility] 3 04:46:09 Disorder of left ear Active 2020 Problem Code: H93.92; Problem Code Type: ICD-10; Not Available [facility] 3 04:46:09 Migraine Active 202102/01/2023 - Comments only - Rima Barba PA-C - Established with [facility] neurology. Patient to f/u with specialty service provider as scheduled to discuss ?treatment failure on TOPAMAX. Problem Code: G43.909; Problem Code Type: ICD-10; Not Available [facility] 3 04:46:10 Nicotine dependence Active 2022 Problem Code: F17.200; Problem Code Type: ICD-10; Not Available [facility] 3 04:46:10 Cardiac arrhythmia Active 202202/01/2023 - Comments only - Rima Barba PA-C - Will arrange for ZIOPATCH at [facility] Problem Code: I49.9; Problem Code Type: ICD-10; Not Available [facility] 3 04:46:10 Acute pharyngitis Completed 201510/14/2017 Problem Code: J02.9; Problem Code Type: ICD-10; Not Available [facility] 3 04:46:10 Injury of chest wall Completed 200906/15/2023 Problem Code: 959.11; Problem Code Type: ICD-9; Not Available [facility] 3 04:46:10 Disorder of teeth AND/OR supporting structures Completed 201510/14/2017 Problem Code: K08.8; Problem Code Type: ICD-10; Not Available [facility] 3 04:46:11 Blood glucose outside reference range Completed 201810/26/2019 Problem Code: R73.09; Problem Code Type: ICD-10; Not Available [facility] 3 04:46:11 Pre-surgery evaluation Completed 201510/14/2017 Problem Code: Z01.818; Problem Code Type: ICD-10; Not Available [facility] 3 04:46:11 Localized edema Completed 201410/14/2017 Problem Code: R60.0; Problem Code Type: ICD-10; Not Available [facility] 3 04:46:11 History and physical examination, administrativ e Completed 201510/14/2017 Problem Code: Z02.89; Problem Code Type: ICD-10; [facility] 3 04:46:12 Disorder of shoulder Completed 201510/14/2017 Problem Code: M75.80; Problem Code Type: ICD-10; Not Available [facility] 3 04:46:12 Pneumonia Completed 201410/14/2017 Problem Code: J18.9; Problem Code Type: ICD-10; Not Available [facility] 3 04:46:12 Hypertensive disorder Completed 201206/15/2023 Not Available [facility] 3 04:46:12 Paresthesia Completed 201410/14/2017 Problem Code: R20.2; Problem Code Type: ICD-10; Not Available [facility] 3 04:46:13 Depressive disorder Active 2022 MALINI HUTCHISON MA [facility] 3 10:49:20 Problem Notes None recorded. Medical Equipment None Reported. Allergies Allergen ID Allergen Name Allergen Category Reaction Reaction Severity Criticality Documentation Date Start Date Code Code System Note Provider Name and Address Organization Details Recorded Time 89241 mustard seed allergeni c extract food,medi cation swelling severe Not available 07/29/20232015 37999 6 RxNorm Hives , Throa t swell ing Aller gyRea ction : 'Hive s, Throa t swell ing'; Not Available [facility] 3 16:29:42 17825 codeine medicatio n nausea mild Not available 07/29/20232014 2670 RxNorm N/V Aller gyRea ction : 'N/V' ; Aller gyCod e: '0040 01599 32'; Aller gyNam e: 'CODE INE'; Aller gyCon ceptT ype: 'NDC' ; Not Available [facility] 3 16:29:45 Medications Name Sig Start Date [...] tablet by mouth four times a day 07/03 completed Not Available Not Available Not Available [...] a day for 10 days 03/09 completed [facility] ED 11/20/21 #40x0 by Paco [...] Not Available Not Available Not Avai lable Lyrica 50 mg capsule Take 1 cap by mouth three times daily. 02/09 completed Not Available Not Available Not Available Vivitrol 380 mg intramusc ular suspensio n,extende d release 2015 active Not Available Not Available Not Avai lable OneTouch UltraMini kit Use 1 kit as directed once a day to check blood sugar 10/03 completed Not Available Not Available Not Available venlafaxi ne ER 150 mg tablet,ex tended release 24 hr Take 1 tablet every day by oral route. 2022 active Not Available Not Available Not Avai lable Nicorette 4 mg buccal lozenge 1 pcs [...] q6h prn 12/09 completed # 14 Cosmo MORALES [facility] Not Available Not Available Not [...] t Available Vitals Date Recorded Body height Body mass index (BMI) Body weight Heart rate Systolic blood pressure Diastolic blood pressure Provider Name and Address Organization Details Last Updated DateTime 4 179.07 cm 40.1 kg/m2 881898. 04 g 82 /min 173 mm[Hg] 97 mm[Hg] ELLEN GARCIAS LPN [facility] 4 11:39:39 Social History None recorded. Functional Status None recorded. Mental Status None recorded. Family History Relationship Description Onset Age of this Age Resolved Age Notes Notes:*Problem: Updated: 05/22 Mother: alive age 87 pulm embolus, htn Father: age 56 cause tractor rolled over on him, ? [place] at time of accident Sisters: one, Viktoria, [...] preservative free, adsorbed 10/14/2017 completed Not Available [facility] 07/29/2023 06:12:24 Tdap 12/07/2006 completed Not Available [facility] 06:12:24 Past Encounters Encounter ID Performer Location Encounter Start Date Encounter Closed Date Diagnosis/Indication Diagnosis SNOMED-CT Code [id number] RIMA BARBA PA-C [address] [address] 02/10/2024 11:10:58 02/10/2024 13:13:37 Essential hypertension 09675122 Type 2 ruth betes mellitus without complication 964560519 Hyperlipidemia 84019334 Depressive disorder 3548 9007 Psychoacti ve substance abuse 94144541 [id number] RIMA BARBA PA-C [facility] [address] [place] [address] 02/27/2024 10:36:28 02/27/2024 13:37:35 Essential hypertension 15801621 Type 2 ruth betes mellitus without complication 297458874 Hyperlipidemia 19097263 Depressive disorder 3548 9007 Psychoacti ve substance abuse 78918688 Acute left otitis media 672071374 Health Concerns Section Related Observation LastModified by Organization Detai ls LastModified Time None Recorded Concern Status LastModified by Organization Details LastModified Time None Recorded Payers Encounter Date Sequence Insurance Name Policy Number Policy Huizar Covered Member ID Huizar Member ID Guarantor Name 02/27/2024 1 [facility] (MEDICAID) Vipul Streeter [id number] Vipul Streeter Notes Date Note Type Note Provider Name and Address Organization Details Recorded Time 02/27/2024 text/html HPI Notes: 58y/o male presenting for 2 week f/u HTN, DM2, chronic pain, substance abuse, and migraines. At time of last chronic care f/u visit 02/10/24, Aleksandr's BP was found markedly elevated (195/118), which he attributed to non-compliance with antihypertensive regimen. Patient was encouraged to RS therapies and present today for BP recheck as monitoring. On presentation today, Aleksandr indicates that, since that visit, he has been compliant with medication regimen as RXd. No ASE concerns. Only acute concern today is for left ear pain and drainage. H/O TM rupture. [address], [place], [address], [facility]. 02/27/2024 12:21:03
--- OUTSIDE RECORDS SUMMARY | 2024-05-09 11:59 | XMS_ITS | Encounter Summary ---
Author Organization [facility] Address [address] [facility] [address] Care Team Providers Care Home Service Director Name Role Phone Unknown Primary Care Provider Unavailabl e Encounter Details Date Type Department Care Team (Late st Contact Info) Description 08/04/2016 Interpretation Only Radiology 1 [facility] PanolaARSENIO garces [id number] Unknown None Social History Tobacco Use Types Packs/Day Years Used Date Smoking Tobacco: Never Assessed Sex and Gender Information Value Date Recorded Sex Assigned at Not on file Gender Identity Not on file Sexual Orientation Not on file documented as of this encounter Plan of Treatment Not on file documented as of this encounter Procedures Procedure Name Priority Date/Time Associated Diagnosis Comments XR CERVICAL SPINE 1 VIEW Routine 08/04/2016 10:10 AM EST documented in this encounter Results * XR Cervical Spine 1 View (08/04/2016 10:10 AM EST) Anatomical Region Laterality Modality C-spine N/A Radiographic Shari ging 08/04/2016 10:1 0 AM EST Narrative 08/04/2016 10:10 AM EST [facility] Historical Result Principal Clinical Sociologist: ??ANJU ??ISABELL CERVICAL SPINE - ONE VIEW: INDICATION: ??Status post ACDF on June 28, 2016. ??Assess healing. ??No pain. COMPARISON: ??July 18, 2015. Since the previous exam, ACDF has been performed at C5-6 and C6-7. Vertebral alignment is maintained. ??Intervertebral spacer part of the device. ??Facet alignment normal. ??No significant prevertebral soft tissue swelling. IMPRESSION: Satisfactory appearance, postop ACDF. Anju Banda MD MR/mn [id number] Procedure Note Unknown - 03/19/2019 [facility] Historical Result Principal Clinical Sociologist: ANJU BANDA CERVICAL SPINE - ONE VIEW: INDICATION: Status post ACDF on June 28, 2016. Assess healing. Nopain. COMPARISON: July 18, 2015. Since the previous exam, ACDF has been performed at C5-6 and C6-7.Vertebral alignment is maintained. Intervertebral spacer part of the device. Facet alignmentnormal. No significant prevertebral soft tissue swelling. IMPRESSION: Satisfactory appearance, postop ACDF. Anju Banda MD MR/mn [id number] Unknown IMG DX ORDERABLES documented in this encounter Visit Diagnoses Not on filedocumented in this encounter Care Teams Home Service Director Relationship Specialty Start Date End Date Unknown None PCP - General 08/11/10 10/06/23 documented as of this encounter
--- OUTSIDE RECORDS SUMMARY | 2024-05-09 11:59 | XMS_ITS | Encounter Summary ---
Author Organization [facility] Address [address] [facility] [place] [address] Care Team Providers Care Porcelain Waxer Name Role Phone Unknown Primary Care Provider Unavailabl e Encounter Details Date Type Department Care Team (Late st Contact Info) Description 10/03/2023 Ancillary Procedure Radiology at [facility] [address] [place] [address] [place] [address] Elly Howe MD [address] [place] [address] Social History Tobacco Use Types Packs/Day Years [...] Diagnosis Comments FILM LIBRARY STORAGE ONLY CT CHEST ABDOMEN PELVIS Routine 10/03/2023 12:00 AM EST documented in this encounter Results * Film Library- Storage Only CT Chest Abdomen Pelvis (10/03/2023 12:00 AM EST) Narrative KARUNA - 10/05/2023 5:57 PM EST This exam is auto-finalizing. It's purpose is for storage only. Elly Howe MD IMG FILM LIBRARY ORDERABLES [place], [place] documented in this encounter Visit Diagnoses Not on filedocumented in this encounter Care Teams Porcelain Waxer Relationship Specialty Start Date End Date Unknown None PCP - General 08/11/10 10/06/23 documented as of this encounter
[2024-05-09 16:30] LABS: ALT 36 U/L (16-63); AST 29 U/L (15-37); Albumin 3.5 g/dL (3.4-5.0); Alkaline Phosphatase 115 U/L (46-116); Anion Gap 10.3 mmol/L (3-11); BUN 15 mg/dL (7-18); Bilirubin, Total 0.62 mg/dL (0.2-1.0); CO2 24.7 mmol/L (21.0-32.0); CREATININE 1.1 mg/dL (0.70-1.30); Calcium 8.5 mg/dL (8.5-10.1); Calculated LDL 124 mg/dL (<100); Chloride 102 mmol/L (98-107); Cholesterol 197 mg/dL (<200); Estimated GFR 77.81 (mL/min/1.73m2); Glucose 192 mg/dL (74-106); HDL Cholesterol 51 mg/dL (40-60); Sodium 137 mmol/L (136-145); Total Protein 7.8 g/dL (6.4-8.2); Triglyceride 111 mg/dL (<150)
== END 2024-05-09 11:56 | disposition home or self-care (01) ==
LOC: NCHCN 11:55
PROVIDERS: PCP Physician Assistant Medical; Visit Provider Physician Assistant Medical
DX: I10 Essential (primary) hypertension (principal); E78.5 Hyperlipidemia, unspecified
CPT/HCPCS: 80053; 80061

== ENCOUNTER 2024-09-06 01:23 | Outpatient (CLI) | payer MEDICAID, SELFPAY ==
--- NOTE | 2024-09-06 | DI.CTLCSR_ITS ---
Exam(s) CT CHEST LUNG CANCER SCREEN EXAM: CT CHEST LUNG CANCER SCREEN CLINICAL HISTORY: NICOTINE DEPENDENCE F17.210 TECHNIQUE: Imaging Protocol: Axial computed tomography images with coronal and sagittal reformatted images were created and reviewed. Lung Computer Aided Detection (CAD) was utilized. COMPARISON: CT CT CHEST W from 05/14/[address] CHEST/ABD/PEL W from 10/03/2023 FINDINGS: Tracheobronchial tree: Patent where visualized. No bronchiectasis. Pulmonary parenchyma: No consolidation or dominant measurable mass. No architectural distortion. Ther e is a calcified granuloma in the right lower lobe. There is scarring again seen in the left upper l obe and lingula. Lung Nodules: There is stable small peripheral nodule seen in the lung bases. No new nodules are pre sent. Mediastinum and [place]ia: No dominant adenopathy or fluid collection. The esophagus is unremarkable. Thyroid gland: Unremarkable. Lymph nodes: Unremarkable. Pleura: No effusion or pneumothorax. Heart: The heart is not dilated. Mild coronary artery calcification is present. No pericardial effus ion. Aorta: Thoracic aorta non-dilated.Atherosclerotic calcification is present. Upper abdomen: Cholelithiasis. Soft Tissues: Gynecomastia. Bones: Within normal limits. IMPRESSION: Stable pulmonary nodules. No new pulmonary nodules. Lung RADS Cat 2 - Benign Appearance / Behavior: Nodules with a very low likelihood of becoming a clin ically active cancer due to size or lack of growth Lung-RADS 1.0 CATEGORIES: Category 0 - Prior chest CT exam(s) being located for comparison. Category 1 - Annual screening in 12 months. No nodules or definitely benign nodules. Category 2 - Annual screening in 12 months. Benign appearance. Nodules with low likelihood of becomin g active cancer. Category 3 - 6-month follow-up. Probably benign. Short-term follow-up suggested. Nodules with low lik elihood of becoming active cancer. Category 4A - 3-month follow-up and CT/PET if >8 mm in size. Suspicious finding. Findings which requi re additional testing. Category 4B - Findings which require additional testing and tissue sampling. Suspicious finding. Category 4X - Category 3 or 4 nodules with additional features or imaging findings that increases the suspicion of malignancy. Modifier S- Potentially clinically significant finding. (Non lung cancer) RADIATION DOSE DELIVERED: 108.42mGy.cm Total DLP 108.42mGy.cmTotal DLP DATA REPOSITORY: All CT scans at this facility are submitted to the National Radiology Data Registry (NRDR) Dose Index Registry (DIR) with the [employer] (ACR). RADIATION OPTIMIZATION: All CT scans at this facility use at least one of these dose optimization te chniques: automated exposure control; mA and/or kV adjustment per patient size (includes targeted exa ms where dose is matched to clinical indication); or iterative reconstruction.
== END 2024-09-06 01:43 ==
LOC: DI 01:23
PROVIDERS: PCP Physician Assistant Medical; Visit Provider Physician Assistant Medical
DX: Z12.2 Encounter for screening for malignant neoplasm of respiratory organs (principal); F17.210 Nicotine dependence, cigarettes, uncomplicated; R91.1 Solitary pulmonary nodule
CPT/HCPCS: 71271

== ENCOUNTER 2024-12-08 14:02 | Emergency (ER) | payer MEDICAID, SELFPAY ==
[2024-12-08 14:06] VITALS: BP 111/79; PULSE 88; RESP 16; TEMP 36.6; O2SAT 95
[2024-12-08 14:08] VITALS: BP 111/79; PULSE 88; RESP 16; TEMP 36.6; O2SAT 95
--- NOTE | 2024-12-08 14:15 | DI.CT_ITS ---
Exam(s) CT ABDOMEN PELVIS WO EXAM: CT ABDOMEN PELVIS WO CLINICAL HISTORY: left flank pain, eval for tics or stone. TECHNIQUE: Imaging Protocol: Axial computed tomography images with coronal and sagittal reformatted images were created and reviewed. Oral: no COMPARISON: CT CT CHEST/ABD/PEL W from 10/03/[address] THORACIC SPINE RECONS from 10/03/[address] CHEST LUNG CANCER SCREEN from 09/06/2024 FINDINGS: Lung Bases: Mild tree-in-bud infiltrates in the right lower lobe. Liver: Mildly enlarged. Moderate hepatic steatosis. No suspicious mass. Gallbladder and biliary tract: Single stone in dependent portion of the gallbladder. No biliary d ilation. Pancreas: Normal density. No abnormal calcifications or inflammatory process. Spleen: Normal. Kidneys: Normal size, contour and axis. No radiodense stones. No obstructive uropathy. No suspicious masses seen. Adrenal glands: No masses seen. Lymph nodes: Within normal limits. Vasculature: Abdominal aorta non-dilated. Atherosclerotic changes. Soft tissues: Small fat containing left inguinal hernia. Bladder: Nearly empty. No visible calculi. Bowel: No obstruction or bowel wall thickening. Mild sigmoid diverticulosis. No evidence of divert iculitis. Normal quantity of stool. Appendix appears normal. Peritoneal cavity: No ascites. No focal collection. No mesenteric inflammatory response. Reproductive organs: Unremarkable. Bones: Mild scoliosis and degenerative changes greatest at L5-S1.. Partial ankylosis of the SI joint s is of superiorly. Mild degenerative changes of the hips. IMPRESSION: No evidence of urinary tract calculi or hydronephrosis. Mild diverticulosis without evidence of diverticulitis. Mild tree-in-bud opacities in the right lower lobe consistent with pneumonitis. Single gallstone. Gallbladder wall not thickened. RADIATION DOSE DELIVERED: Total DLP DATA REPOSITORY: All CT scans at this facility are submitted to the National Radiology Data Registry (NRDR) Dose Index Registry (DIR) with the [employer] (ACR). RADIATION OPTIMIZATION: All CT scans at this facility use at least one of these dose optimization te chniques: automated exposure control; mA and/or kV adjustment per patient size (includes targeted exa ms where dose is matched to clinical indication); or iterative reconstruction.
--- NOTE | 2024-12-08 14:23 | W.ED.GENAD ---
Discharge Plan Disposition Patient Disposition: Home Condition: Good Discharge Details Chief Complaint: Abd Prob Clinical Impression: Left flank pain Primary Care Provider: Candy Ferrari ED Provider: Kushal Green Home Meds and New Rx's Prescriptions: No Action trazodone 50 mg tablet 50 - 100 mg PO HS PRN PRN albuterol sulfate [ProAir HFA] 90 mcg/actuation HFA aerosol inhaler 2 puff IH .COMPLEX PRN Patient Comments: 2 puff IH before exercise as needed PRN; Rx Instructions: 2 puff IH before exercise as needed PRN; methadone 5 mg/5 mL solution 115 mg PO DAILY topiramate [Topamax] 25 mg tablet 25 mg PO QHS Qty: 30 3RF lorazepam 0.5 mg tablet 0.5 mg PO DAILY PRN (Reason: anxiety) Qty: 2 0RF Rx Instructions: Take one tab 20-30 min before MRI. Repeat after 30 min if needed. amlodipine 5 mg tablet 5 mg PO DAILY atenolol 50 MG tablet 50 mg PO DAILY atorvastatin 40 mg tablet 40 mg PO DAILY Patient Comments: TAKE 1 TABLET BY MOUTH EVERY DAY hydrochlorothiazide 25 mg tablet 25 mg PO DAILY Patient Comments: TAKE 1/2 TABLET BY MOUTH DAILY FOR 1 TO 2 WEEKS THEN INCREASE TO 1 TABLET DAILY metformin 500 mg tablet extended release 24 hr 500 mg PO DAILY Patient Comments: TAKE 1 TABLET BY MOUTH EVERY DAY venlafaxine 150 mg capsule,extended release 24hr 150 mg PO DAILY Patient Comments: TAKE 1 CAPSULE BY MOUTH DAILY (DME) lancets [OneTouch UltraSoft Lancets] Mis MISCELLANEOUS Rx Instructions: USE ONCE DAILY (DME) OneTouch Verio test strips Strip MISCELLANEOUS Rx Instructions: TEST DAILY (DME) blood-glucose meter [OneTouch UltraMini] Kit MISCELLANEOUS gabapentin 300 mg capsule 900 mg PO BID Patient Comments: TAKE 3 CAPSULES BY MOUTH TWICE DAILY Discharge Instructions Instructions: Flank Pain Additional Instructions: At this time the CAT scan shows no evidence of kidney stone, infection or other significant abnormality. There is a chance he had a small kidney stone that passed. You also may have muscle irritation that could have brought about the symptoms. Please take Tylenol and Motrin as needed for pain. If you have persistent or worsening pain you may require repeat imaging. If you notice any worsening of your symptoms, or any new symptoms such as vomiting, diarrhea, fever, chills, shortness of breath, chest pain, numbness, weakness, or fainting , please return immediately to the emergency department for reevaluation. Please follow up with your primary care provider as soon as possible for reassessment and reevaluation. As always, it was a pleasure participating in your medical care today. Referrals: Candy Ferrari PA [Primary Care Provider] - [facility] General Date/Time Provider Initiated Documentation: 12/08/24 14:10. HPI Narrative: 59-year-old male with a past medical history of type 2 diabetes, previous substance abuse, previous stroke, hypertension, PTSD, presents today for evaluation of left flank pain. Patient states that it started 3 days ago, it was sudden onset sharp in nature. No radiation anywhere else. No hematuria vomiting or diarrhea. No fever or chills. No other complaints. He states he has never felt something like this before. It is not worse with palpitation. No other complaints at this time. Related Data Home Medications ?Medication ?Instructions ?Recorded ?Confirmed atenolol 50 mg tablet 50 mg PO DAILY 08/19/13 12/08/24 albuterol sulfate 90 mcg/actuation 2 puff inhalation .COMPLEX PRN 11/08/18 12/08/24 aerosol inhaler (ProAir HFA) trazodone 50 mg tablet 50 - 100 mg PO HS PRN PRN 11/08/18 12/08/24 atorvastatin 40 mg tablet 40 mg PO DAILY 05/14/21 12/08/24 blood sugar diagnostic (OneTouch 05/14/21 12/08/24 Verio test strips) blood-glucose meter (OneTouch 05/14/21 12/08/24 UltraMini kit) hydrochlorothiazide 25 mg tablet 25 mg PO DAILY 05/14/21 12/08/24 lancets (OneTouch UltraSoft 05/14/21 12/08/24 Lancets) metformin 500 mg tablet,extended 500 mg PO DAILY 05/14/21 12/08/24 release 24 hr venlafaxine 150 mg 150 mg PO DAILY 05/14/21 12/08/24 capsule,extended release 24 hr amlodipine 5 mg tablet 5 mg PO DAILY 10/14/22 12/08/24 lorazepam 0.5 mg tablet 0.5 mg PO DAILY PRN anxiety #2 tabs 10/19/22 12/08/24 methadone 5 mg/5 mL oral solution 115 mg PO DAILY 10/19/22 12/08/24 topiramate 25 mg tablet (Topamax) 25 mg PO QHS #30 tabs 11/25/22 12/08/24 gabapentin 300 mg capsule 900 mg PO BID 10/03/23 12/08/24 Previous Rx's ?Medication ?Instructions ?Recorded lorazepam 0.5 mg tablet 0.5 mg PO DAILY PRN anxiety #2 tabs 10/19/22 topiramate 25 mg tablet (Topamax) 25 mg PO QHS #30 tabs 11/25/22 Allergies Allergy/AdvReac Type Severity Reaction Status Date / Time mustard Allergy Severe Unverified 10/03/23 13:49 pregabalin (From Lyrica) Allergy Severe Unverified 10/03/23 13:49 venom-wasp Allergy Intermediate Verified 10/03/23 13:49 bupropion (From Wellbutrin) Allergy Verified 10/03/23 13:49 hydrocodone AdvReac Intermediate upset Unverified 10/03/23 13:49 stomach codeine AdvReac Nausea Unverified 10/03/23 13:49 tramadol AdvReac Uncoded 11/25/22 14:57 General Stated Complaint: Abd Prob ELKE: 3 Exam Narrative Exam Narrative: 1.Const: Well-nourished, Well-developed, appearing stated age 2.Eyes: PERRL, no conjunctival injection, and symmetrical lids. 3.ENT: Atraumatic external nose and ears. Moist MM. Neck: Symmetric, trachea midline, No thyromegaly. 4.CVS: +S1/S2, Peripheral pulses 2+ and equal in all extremities. Brisk capillary refill in all extremities. 5.RESP: Unlabored respiratory effort. Clear to auscultation bilaterally. No wheezes rales or rhonchi 6.GI: Soft, Nontender/Nondistended, No hepatosplenomegaly. No guarding or rebound. No flank or CVA tenderness 7.MSK: Normocephalic/Atraumatic, Extremities w/o deformity or ttp No cyanosis or clubbing, Normal movement of all extremities 8.Skin: Warm, Dry. No rashes or lesions. 9.Neuro: trouble operator II-XII grossly intact. Sensation grossly intact, no focal neurologic deficits. 10.Psych: (AAO) x3. Appropriate mood and affect Course Vital Signs Vital signs: Vital Signs Temperature 36.6 C 12/08/24 14:06 Pulse 88 12/08/24 14:06 Respiratory Rate 16 12/08/24 14:06 Blood Pressure 111/79 12/08/24 14:06 Pulse Oximetry 95 12/08/24 14:06 Temperature 36.6 C 12/08/24 14:08 Pulse 88 12/08/24 14:08 Respiratory Rate 16 12/08/24 14:08 Blood Pressure 111/79 12/08/24 14:08 Pulse Oximetry 95 12/08/24 14:08 Pain Level 6 12/08/24 14:08 Medical Decision Making 59-year-old male with a past medical history of type 2 diabetes, previous substance abuse, previous stroke, hypertension, PTSD, presents today for evaluation of left flank pain. Patient states that it started 3 days ago, it was sudden onset sharp in nature. No radiation anywhere else. No hematuria vomiting or diarrhea. No fever or chills. No other complaints. He states he has never felt something like this before. It is not worse with palpitation. No other complaints at this time. Exam demonstrates well-appearing male who does appear in pain though. No reproducible tenderness on palpation of the abdomen, percussion of the flank. Concern is for kidney stone, differential does include diverticulitis. Will get CT imaging treat with NSAID therapy, monitor closely and reassess. [address] scan negative for acute process. Some gallstones are present. Repeat abdominal exam shows no signs of an acute surgical abdomen whatsoever. Laboratory workup shows WBC count of 11, no bandemia. Electrolytes normal renal function normal, urinalysis shows no infection, trace amount of lysed blood cells, but no other abnormality. Patient has improvement of pain with NSAID therapy. Patient feels well and is requesting to go home. Suspect muscle spasm, passed kidney stone. Symptoms inconsistent with acute mesenteric ischemia, diverticulitis, acute kidney stone, pyelonephritis UTI. Discussed red flags for which to return. I have extensively reviewed the treatment plan and discharge instructions with the patient. I have addressed all patient concerns at this time. The patient was made aware of what symptoms to monitor for that would warrant a return to the emergency department. Discussed the plan with the patient, they demonstrate verbal understanding and agreement with our assessment and plan at this time. The documentation in this chart was dictated using [employer] dictation software. Please excuse any dictation errors. Addendum created by Zeeshan Corrales MD on 12/08/2024 3:47 PM Eastern Time ([place] & [place]): PROCEDURE INFORMATION: Exam: CT Abdomen And Pelvis Without Contrast Exam date and time: 12/08/2024 2:32 PM Age: 59 years old Clinical indication: Other: Left flank pain, eval for tics or stone TECHNIQUE: Imaging protocol: Computed tomography of the abdomen and pelvis without contrast. Radiation optimization: All CT scans at this facility use at least one of these dose optimization techniques: automated exposure control; mA and/or kV adjustment per patient size (includes targeted exams where dose is matched to clinical indication); or iterative reconstruction. COMPARISON: CT CHEST/ABD/PEL W 10/03/2023 3:38 PM FINDINGS: Lungs: Tree-in-bud infiltrates in the right lower lobe. Calcified right lower lobe granulomas. Liver: There is a diffuse decrease in hepatic parenchymal density, consistent with fatty infiltration. Gallbladder and biliary ducts: Multiple calcified gallstones are present. Pancreas: Normal. No ductal dilation. Spleen: Normal. No splenomegaly. Adrenal glands: Normal. No mass. Kidneys and ureters: Normal. No hydronephrosis. Stomach and bowel: Unremarkable. No obstruction. No mucosal thickening. Appendix: No evidence of appendicitis. Intraperitoneal space: Unremarkable. No free air. No significant fluid collection. Vasculature: Calcified atheromas of the visualized arteries. Lymph nodes: Unremarkable. No enlarged lymph nodes. Urinary bladder: Unremarkable as visualized Reproductive: Unremarkable as visualized. Bones/joints: Partial ankylosis of the sacroiliac joints. There are mild degenerative changes of the hip joints. Mild curvature of the lumbar spine convex to the right. The lumbar spine demonstrates mild degenerative changes at multiple levels. Soft tissues: There is a fat-containing umbilical hernia. Fat containing bilateral inguinal hernias. IMPRESSION: 1. Cholelithiasis with no changes of acute cholecystitis. 2. No acute intra-abdominal process. No urinary stones. Initial Report created on 12/08/2024 3:40 PM Eastern Time ([place] & [place]): Quality:SDOH Health Related Social Needs: No Data to Display PFSH All Active Problems (Updated 12/08/24 @ 15:59 by Kushal Green DO) Left flank pain (Acute) New persistent daily headache (Acute) Infected sebaceous cyst of skin (Acute) Type II diabetes mellitus (Acute) Cellulitis of chest wall (Acute) Substance abuse (Acute) Community acquired pneumonia (Acute) Medical History Depression, major, recurrent Decreased visual acuity Constipation Edema Boil of upper extremity Orthopnea Elevated LFTs History of TIAs Disturbance in speech Dysphasia Neuropathic pain Abscess of axilla, left Cough Lung nodule Abscess of chest wall Ear disorder Migraine Smoker CVA (cerebrovascular accident) HTN (hypertension) PTSD (post-traumatic stress disorder) Hyperlipidemia Other injury of chest wall Panic disorder Radiculopathy affecting upper extremity Obesity Repetitive strain injury of shoulder Gingivitis Spinal cord injuries Anxiety Cervicalgia Preventative health care Encounter for smoking cessation counseling Surgical History S/P shoulder replacement S/P cervical spinal fusion Social History Smoking/Tobacco Use Status: Current every day Tobacco Type: cigarettes Smoking risk assessment performed?: Yes Alcohol Intake: former Drug use: Occasionally Substance use type: marijuana and crack/cocaine Details: crack use 5-6 days ago Housing: house Do you feel safe at home: Yes Do you feel safe in your relationship?: Yes
[2024-12-08] MEDS: ACETAMINOPHEN 1,000 MG/100 ML BAG 400 MG IVPB (15:07)
[2024-12-08] MEDS: Ketorolac 15 MG/ML VIAL IVP (15:08)
[2024-12-08 15:24] LABS: Abs Immature Grans 0.04 10^3/uL (0.0-0.06); Absolute Lymphocyte Count 1.98 10^3/uL (1.2-3.4); Absolute Monocyte Count 0.67 10^3/uL (0.1-0.8); Basophils % 0.9 %; Eosinophils % 1.8 %; HCT 50.2 % (40.0-50.0); HGB 16.1 g/dL (13.5-17.5); Immature Grans % 0.4 %; Lymphocytes % 17.5 %; MCH 24.6 pg (27.0-33.0); MCHC 32.1 % (32.0-36.0); MCV 77 fL (80-95); MPV 10.8 fL (8.0-11.0); Monocytes % 5.9 %; Neutrophils % 73.5 %; Platelet Count 222 10^3/uL (130-400); RBC 6.54 10^6/uL (4.36-5.78); RDW 13.2 % (11.8-14.1); RDW-SD 35.9 fL; WBC 11.31 10^3/uL (4.4-10.8)
[2024-12-08 15:27] LABS: Absolute Neutrophil Count 8.31 10^3/uL (1.2-6.7)
[2024-12-08 15:29] VITALS: PULSE 93; O2SAT 94
[2024-12-08 15:30] VITALS: PULSE 96; O2SAT 94
[2024-12-08 15:35] LABS: Bilirubin Small (Negative); Blood Trace-lysed (Negative); Clarity Clear (Clear); Glucose Negative (Negative); Ketones Trace mg/dL (Negative); Leukocyte Esterase Negative (Negative); Nitrite Negative (Negative); Specific Gravity >= 1.030 (1.005-1.025); Urobilinogen 0.2 mg/dL (Up to 0.2); pH 5.5 (5-8)
[2024-12-08 15:38] LABS: Bacteria Negative HPF (Negative); Casts Negative LPF (Negative); Crystals Negative HPF (Negative); Epithelial Cells Negative HPF (Negative); Mucus Negative (Negative); RBC Negative HPF (0-2); WBC Negative HPF (0-5)
[2024-12-08 15:39] LABS: C & S Indicated? No
--- NOTE | 2024-12-08 15:41 | DI.VRAD_ITS ---
Addendum created by Zeeshan Corrales MD on 12/08/2024 3:47:12 PM EDT: PROCEDURE INFORMATION: Exam: CT Abdomen And Pelvis Without Contrast Exam date and time: 12/08/2024 2:32 PM Age: 59 years old Clinical indication: Other: Left flank pain, eval for tics or stone TECHNIQUE: Imaging protocol: Computed tomography of the abdomen and pelvis without contrast. Radiation optimization: All CT scans at this facility use at least one of these dose optimization techniques: automated exposure control; mA and/or kV adjustment per patient size (includes targeted exams where dose is matched to clinical indication); or iterative reconstruction. COMPARISON: CT CHEST/ABD/PEL W 10/03/2023 3:38 PM FINDINGS: Lungs: Tree-in-bud infiltrates in the right lower lobe. Calcified right lower lobe granulomas. Liver: There is a diffuse decrease in hepatic parenchymal density, consistent with fatty infiltration. Gallbladder and biliary ducts: Multiple calcified gallstones are present. Pancreas: Normal. No ductal dilation. Spleen: Normal. No splenomegaly. Adrenal glands: Normal. No mass. Kidneys and ureters: Normal. No hydronephrosis. Stomach and bowel: Unremarkable. No obstruction. No mucosal thickening. Appendix: No evidence of appendicitis. Intraperitoneal space: Unremarkable. No free air. No significant fluid collection. Vasculature: Calcified atheromas of the visualized arteries. Lymph nodes: Unremarkable. No enlarged lymph nodes. Urinary bladder: Unremarkable as visualized. Reproductive: Unremarkable as visualized. Bones/joints: Partial ankylosis of the sacroiliac joints. There are mild degenerative changes of the hip joints. Mild curvature of the lumbar spine convex to the right. The lumbar spine demonstrates mild degenerative changes at multiple levels. Soft tissues: There is a fat-containing umbilical hernia. Fat containing bilateral inguinal hernias. IMPRESSION: 1. Cholelithiasis with no changes of acute cholecystitis. 2. No acute intra-abdominal process. No urinary stones. Initial report created on 12/08/2024 3:40:39 PM EDT: PROCEDURE INFORMATION: Exam: CT Abdomen And Pelvis Without Contrast Exam date and time: 12/08/2024 2:32 PM Age: 59 years old Clinical indication: Other: Left flank pain, eval for tics or stone TECHNIQUE: Imaging protocol: Computed tomography of the abdomen and pelvis without contrast. Radiation optimization: All CT scans at this facility use at least one of these dose optimization techniques: automated exposure control; mA and/or kV adjustment per patient size (includes targeted exams where dose is matched to clinical indication); or iterative reconstruction. COMPARISON: CT CHEST/ABD/PEL W 10/03/2023 3:38 PM FINDINGS: Lungs: Tree-in-bud infiltrates in the right lower lobe. Calcified right lower lobe granulomas. Liver: There is a diffuse decrease in hepatic parenchymal density, consistent with fatty infiltration. Gallbladder and biliary ducts: Multiple calcified gallstones are present. Pancreas: Normal. No ductal dilation. Spleen: Normal. No splenomegaly. Adrenal glands: Normal. No mass. Kidneys and ureters: Normal. No hydronephrosis. Stomach and bowel: Unremarkable. No obstruction. No mucosal thickening. Appendix: No evidence of appendicitis. Intraperitoneal space: Unremarkable. No free air. No significant fluid collection. Vasculature: Calcified atheromas of the visualized arteries. Lymph nodes: Unremarkable. No enlarged lymph nodes. Urinary bladder: Unremarkable as visualized. Reproductive: Unremarkable as visualized. Bones/joints: Partial ankylosis of the sacroiliac joints. There are mild degenerative changes of the hip joints. Mild curvature of the lumbar spine convex to the right. The lumbar spine demonstrates mild degenerative changes at multiple levels. Soft tissues: There is a fat-containing umbilical hernia. Fat containing bilateral inguinal hernias. IMPRESSION: 1. Cholelithiasis with no changes acute cholecystitis. 2. No acute intra-abdominal process. No urinary stones. Dictated and Authenticated by: Zeeshan Corrales MD. Orderin Norma Fatima MD
[2024-12-08 15:51] LABS: ALT 33 U/L (16-63); AST 21 U/L (15-37); Albumin 3.7 g/dL (3.4-5.0); Alkaline Phosphatase 109 U/L (46-116); Anion Gap 11.7 mmol/L (3-11); BUN 18 mg/dL (7-18); Bilirubin, Total 1.1 mg/dL (0.2-1.0); CO2 26.3 mmol/L (21.0-32.0); CREATININE 1.1 mg/dL (0.70-1.30); Calcium 9.3 mg/dL (8.5-10.1); Chloride 103 mmol/L (98-107); Estimated GFR 77.33 (mL/min/1.73m2); Glucose 163 mg/dL (74-106); Potassium 4.4 mmol/L (3.5-5.1); Sodium 141 mmol/L (136-145); Total Protein 8.1 g/dL (6.4-8.2)
[2024-12-08 16:08] VITALS: BP 170/114; PULSE 92; RESP 16; O2SAT 97
== END 2024-12-08 16:09 | disposition home or self-care (01) ==
PROVIDERS: Emergency Provider Student in an Organized Health Care Education/Training Program; PCP Physician Assistant Medical
DX: R10.32 Left lower quadrant pain (principal); I10 Essential (primary) hypertension; E78.5 Hyperlipidemia, unspecified; E11.9 Type 2 diabetes mellitus without complications; F17.210 Nicotine dependence, cigarettes, uncomplicated; Z98.1 Arthrodesis status; Z79.84 Long term (current) use of oral hypoglycemic drugs
CPT/HCPCS: 36415; 36573; 80053; 96365; 96375; 99284; 74176; 81003; 81015; 85025; J0131; J1885

== ENCOUNTER 2025-01-09 16:56 | Outpatient (REF) | payer MEDICAID, SELFPAY ==
[2025-01-10 19:17] LABS: PSA, Diagnostic 0.5 ng/mL (<=3.5)
== END 2025-01-09 16:57 | disposition home or self-care (01) ==
LOC: NCHCN 16:56
PROVIDERS: PCP Physician Assistant Medical; Visit Provider Physician Assistant Medical
DX: R39.9 Unspecified symptoms and signs involving the genitourinary system (principal)
CPT/HCPCS: 84153

== ENCOUNTER 2025-01-10 16:22 | Outpatient (REF) | payer MEDICAID, SELFPAY ==
[2025-01-10 17:12] LABS: Bilirubin Negative (Negative); Blood Small (Negative); Clarity Clear (Clear); Glucose Negative (Negative); Ketones Negative (Negative); Leukocyte Esterase Negative (Negative); Nitrite Negative (Negative); Specific Gravity 1.025 (1.005-1.025); Urobilinogen 0.2 mg/dL (Up to 0.2)
[2025-01-10 17:29] LABS: Bacteria Moderate HPF (Negative); C & S Indicated? No; Crystals Negative HPF (Negative); Epithelial Cells Rare HPF (Negative); Mucus Negative (Negative); WBC 0-2 HPF (0-5)
== END 2025-01-10 16:23 | disposition home or self-care (01) ==
LOC: NCHCN 16:22
PROVIDERS: PCP Physician Assistant Medical; Visit Provider Physician Assistant Medical
DX: R31.9 Hematuria, unspecified (principal)
CPT/HCPCS: 81003; 81015

== ENCOUNTER 2025-01-24 00:41 | Outpatient (CLI) | payer MEDICAID, SELFPAY ==
--- NOTE | 2025-01-24 | DI.US_ITS ---
Exam(s) US LOWER EXTREMITY VENOUS LT EXAM: US LOWER EXTREMITY VENOUS LT CLINICAL HISTORY: PAIN OF L CALF, M79.662 TECHNIQUE: Grayscale, color, and doppler imaging of the deep venous system of the left lower extremi ty was performed. COMPARISON: US US ECHOCARDIOGRAM from 08/23/2019 FINDINGS: There is no evidence of intraluminal thrombus and there is normal compression and augmentation demons trated within the common femoral vein, femoral vein, and popliteal vein. In the ipsilateral calf the interrogated veins also exhibit normal compression/ augmentation properti es. The ipsilateral saphenofemoral junction is patent. IMPRESSION: 1. No evidence of DVT in the left lower extremity. DATA REPOSITORY:
== END 2025-01-24 01:01 ==
LOC: DI 00:42
PROVIDERS: PCP Physician Assistant Medical; Visit Provider Physician Assistant Medical
DX: M79.662 Pain in left lower leg (principal)
CPT/HCPCS: 93971

== ENCOUNTER 2025-02-13 15:14 | Outpatient (REF) | payer MEDICAID, SELFPAY ==
[2025-02-13 22:09] LABS: Anion Gap 6.9 mmol/L (3-11); BUN 20 mg/dL (7-18); CO2 29.1 mmol/L (21.0-32.0); Calcium 8.8 mg/dL (8.5-10.1); Chloride 104 mmol/L (98-107); Ferritin 124 ng/mL (26-388); Glucose 160 mg/dL (74-106); Magnesium 2.1 mg/dL (1.8-2.4); Potassium 4.8 mmol/L (3.5-5.1); Sodium 140 mmol/L (136-145)
[2025-02-13 23:08] LABS: Creatine Kinase 219 U/L (39-308)
== END 2025-02-13 15:15 | disposition home or self-care (01) ==
LOC: NCHCN 15:14
PROVIDERS: PCP Physician Assistant Medical; Visit Provider Physician Assistant Medical
DX: R25.2 Cramp and spasm (principal)
CPT/HCPCS: 80048; 82550; 82728; 83735

== ENCOUNTER 2025-06-05 19:37 | Outpatient (REF) | payer MEDICAID, SELFPAY ==
[2025-06-05 20:57] LABS: Hemoglobin A1C 6.5 % (<5.7)
[2025-06-05 21:04] LABS: ALT 27 U/L (16-63); AST 22 U/L (15-37); Albumin 3.0 g/dL (3.4-5.0); Alkaline Phosphatase 106 U/L (46-116); Anion Gap 8.2 mmol/L (3-11); BUN 15 mg/dL (7-18); Bilirubin, Total 0.5 mg/dL (0.2-1.0); CO2 27.8 mmol/L (21.0-32.0); Calcium 8.6 mg/dL (8.5-10.1); Calculated LDL 126 mg/dL (<100); Chloride 102 mmol/L (98-107); Cholesterol 181 mg/dL (<200); Estimated GFR 98.38 (mL/min/1.73m2); Glucose 157 mg/dL (74-106); HDL Cholesterol 35 mg/dL (>or=40); Potassium 4.1 mmol/L (3.5-5.1); Sodium 138 mmol/L (136-145); Total Protein 7.4 g/dL (6.4-8.2); Triglyceride 102 mg/dL (<150)
[2025-06-06 18:51] LABS: Hepatitis C Ab w Rflx HCV PCR Negative (Negative)
[2025-06-06 18:54] LABS: HIV-1/2 Ag & Ab Screen Negative (Negative)
== END 2025-06-05 19:38 | disposition home or self-care (01) ==
LOC: NCHCN 19:37
PROVIDERS: PCP Physician Assistant Medical; Visit Provider Physician Assistant Medical
DX: E78.5 Hyperlipidemia, unspecified (principal); E11.9 Type 2 diabetes mellitus without complications; F19.10 Other psychoactive substance abuse, uncomplicated
CPT/HCPCS: 80053; 80061; 86803; 87389; 83036

== ENCOUNTER 2025-06-17 04:38 | Emergency (ER) | payer MEDICAID, SELFPAY ==
[2025-06-17 04:41] VITALS: BP 237/131; PULSE 110; RESP 16; TEMP 37.7; O2SAT 94
--- NOTE | 2025-06-17 04:45 | RT.EKG_ITS ---
APPROVED REPORT Exam: Resting ECG Reason for Exam: ABD pain Patient Location: E HR:102 bpm ECG Measurements Heart Rate 102 AXIS MS 148 P 74 QRSd 91 QRS -6 QT 357 T 41 QTc 466 Conclusion Sinus tachycardia...rate> 99 Probable left atrial enlargement...P >50mS, <-0.10mV V1
--- NOTE | 2025-06-17 05:00 | DI.CT_ITS ---
Exam(s) CT ABDOMEN PELVIS W EXAM: CT ABDOMEN PELVIS W CLINICAL HISTORY: RUQ abdominal pain, prior abscess in location. TECHNIQUE: Imaging Protocol: Axial computed tomography images with coronal and sagittal reformatted images were created and reviewed CONTRAST MATERIAL: Intravenous: Omnipaque-350 100cc Oral: None COMPARISON: CT CT ABDOMEN PELVIS WO from 12/08/2024 FINDINGS: VISUALIZED LUNG BASES: There is significant increase in the amount of tree in bud infiltrates in the right lower lobe. No pleural effusions.. ABDOMEN: There is no ascites. LIVER: There are no focal hepatic lesions evident. Hepatic steatosis again noted. No dilated intrahepatic ducts. GALLBLADDER/BILIARY: Single calcified gallstone again noted. No evidence of acute cholecystitis. CBD is not dilated. PANCREAS: No evidence of pancreatic mass nor dilatation of the pancreatic duct. SPLEEN: Spleen is not enlarged. No obvious intrasplenic lesions. Splenic and portal veins are patent. ADRENALS: There are no significant adrenal masses. KIDNEYS:Tiny 4 millimeter cortical cyst posterior left kidney. This does not require further workup. No other significant focal renal findings. No solid renal masses. No calculi nor hydronephrosis.. ABDOMINAL AORTA: Abdominal aorta is not enlarged. LYMPH NODES:There is no retroperitoneal nor paraaortic adenopathy. ABDOMINAL WALL: No evidence of significant anterior abdominal wall nor inguinal hernia. GI: There is no evidence of bowel obstruction, free air, nor abscess. PELVIS: GI: No evidence of appendicitis.No evidence of sigmoid diverticulitis. LYMPH NODES: There is no intrapelvic nor inguinal adenopathy. REPRODUCTIVE: Prostate size normal. Seminal vesicles unremarkable. URINARY BLADDER: Uniform thickening of the bladder wall which is probably related to under distension. OSSEOUS: Ankylosis of the sacroiliac joints is again noted. No fractures evident. Chronic disc space narrowing L5-S1. No listhesis. Other disc spaces exhibit normal height. No significant osseous lesions. IMPRESSION: 1. The main finding here is significant increase in the amount of tree in bud infiltrate in the right lower lobe. No associated pleural effusion. 2. No new acute findings in the abdomen and pelvis. 3. Cholelithiasis again noted without evidence of acute cholecystitis. If clinically indicated follow-up ultrasound can be performed given that there was apparently right upper quadrant pain. There is no dilatation of biliary tree. 4. Hepatic steatosis again noted. Preliminary virtual Radiology report was reviewed. RADIATION DOSE DELIVERED: 786.74mGy.cm Total DLP DATA REPOSITORY: All CT scans at this facility are submitted to the National Radiology Data Registry (NRDR) Dose Index Registry (DIR) with the [employer] (ACR). RADIATION OPTIMIZATION: All CT scans at this facility use at least one of these dose optimization techniques: automated exposure control; mA and/or kV adjustment per patient size (includes targeted exams where dose is matched to clinical indication); or iterative reconstruction.
--- NOTE | 2025-06-17 05:14 | W.ED.GENAD ---
Discharge Plan Discharge Details Chief Complaint: Abd Prob Primary Care Provider: Candy Ferrari ED Provider: Damian Nelson Home Meds and New Rx's Prescriptions: No Action trazodone 50 mg tablet 50 - 100 mg PO HS PRN PRN albuterol sulfate [ProAir HFA] 90 mcg/actuation HFA aerosol inhaler 2 puff IH .COMPLEX PRN Patient Comments: 2 puff IH before exercise as needed PRN; Rx Instructions: 2 puff IH before exercise as needed PRN; methadone 5 mg/5 mL solution 115 mg PO DAILY topiramate [Topamax] 25 mg tablet 25 mg PO QHS Qty: 30 3RF lorazepam 0.5 mg tablet 0.5 mg PO DAILY PRN (Reason: anxiety) Qty: 2 0RF Rx Instructions: Take one tab 20-30 min before MRI. Repeat after 30 min if needed. amlodipine 5 mg tablet 10 mg PO DAILY rosuvastatin [Crestor] 20 mg tablet 20 mg PO DAILY metformin 500 mg tablet extended release 24 hr 1,000 mg PO DAILY Patient Comments: TAKE 1 TABLET BY MOUTH EVERY DAY atenolol 50 MG tablet 50 mg PO DAILY hydrochlorothiazide 25 mg tablet 25 mg PO DAILY Patient Comments: TAKE 1/2 TABLET BY MOUTH DAILY FOR 1 TO 2 WEEKS THEN INCREASE TO 1 TABLET DAILY venlafaxine 150 mg capsule,extended release 24hr 150 mg PO DAILY Patient Comments: TAKE 1 CAPSULE BY MOUTH DAILY (DME) lancets [OneTouch UltraSoft Lancets] Misc MISCELLANEOUS Rx Instructions: USE ONCE DAILY (DME) OneTouch Verio test strips Strip MISCELLANEOUS Rx Instructions: TEST DAILY (DME) blood-glucose meter [OneTouch UltraMini] Kit MISCELLANEOUS gabapentin 300 mg capsule 900 mg PO BID Patient Comments: TAKE 3 CAPSULES BY MOUTH TWICE DAILY HPI General Date/Time Provider Initiated Documentation: 06/17/25 04:58. HPI Narrative: The patient is a 59-year-old male, with a past medical history significant for hyperlipidemia, hypertension, CVA, depression, prior history of multiple abscesses with drainages, who presents emergency department this evening complaining of right upper quadrant abdominal pain which began around 9 PM yesterday evening. The patient states that the pain is sharp in nature and came on suddenly. The patient states that the pain is directly over the area of the prior abscess drainage from the ventral abdomen and points to a scar. The patient denies any associated gastrointestinal symptoms such as nausea, vomiting, diarrhea, or constipation. Patient denies any fevers or chills. Patient states that it does not hurt to push on the area of the right upper quadrant, but does hurt worse when he lays flat or when he coughs. Patient states the pain is mildly worse with deep inspiration. Patient states that he is unable to lay down comfortably secondary to the pain. Related Data Home Medications ?Medication ?Instructions ?Recorded ?Confirmed atenolol 50 mg tablet 50 mg PO DAILY 08/19/13 06/17/25 albuterol sulfate 90 mcg/actuation 2 puff inhalation .COMPLEX PRN 11/08/18 06/17/25 aerosol inhaler (ProAir HFA) trazodone 50 mg tablet 50 - 100 mg PO HS PRN PRN 11/08/18 06/17/25 blood sugar diagnostic ([facility] 05/14/21 06/17/25 Verio test strips) blood-glucose meter ([facility] 05/14/21 06/17/25 UltraMini kit) hydrochlorothiazide 25 mg tablet 25 mg PO DAILY 05/14/21 06/17/25 [facility]ancets [facility] 05/14/21 06/17/25 Lancets) venlafaxine 150 mg 150 mg PO DAILY 05/14/21 06/17/25 capsule,extended release 24 hr lorazepam 0.5 mg tablet 0.5 mg PO DAILY PRN anxiety #2 tabs 10/19/22 06/17/25 methadone 5 mg/5 mL oral solution 115 mg PO DAILY 10/19/22 06/17/25 topiramate 25 mg tablet (Topamax) 25 mg PO QHS #30 tabs 11/25/22 06/17/25 gabapentin 300 mg capsule 900 mg PO BID 10/03/23 06/17/25 amlodipine 5 mg tablet 10 mg PO DAILY 01/16/25 06/17/25 metformin 500 mg tablet,extended 1,000 mg PO DAILY 01/16/25 06/17/25 release 24 hr rosuvastatin 20 mg tablet (Crestor) 20 mg PO DAILY 01/16/25 06/17/25 Previous Rx's ?Medication ?Instructions ?Recorded lorazepam 0.5 mg tablet 0.5 mg PO DAILY PRN anxiety #2 tabs 10/19/22 topiramate 25 mg tablet (Topamax) 25 mg PO QHS #30 tabs 11/25/22 Allergies Allergy/AdvReac Type Severity Reaction Status Date / Time mustard Allergy Severe Skin Rash Unverified 06/17/25 04:50 pregabalin (From Lyrica) Allergy Severe Skin Rash Unverified 06/17/25 04:50 venom-wasp Allergy Intermediate Skin Rash Verified 06/17/25 04:50 bupropion (From Wellbutrin) Allergy Skin Rash Verified 06/17/25 04:50 codeine AdvReac Nausea Unverified 06/17/25 04:50 General Stated Complaint: Abd Prob ELKE: 3 Exam Const General: cooperative, acute distress mild and disheveled Nutritional Appearance: average body habitus Orientation: alert, awake and oriented x3 Resp Effort & Inspection: normal respiratory effort, cough (Intermittent) Quality of cough: wet and not tachypneic Auscultation: clear to auscultation bilaterally Cardio Rate: regular rate Rhythm: regular rhythm Heart Sounds: S1 normal and S2 normal GI Inspection: normal to inspection Palpation: soft, no hepatomegaly and nontender Auscultation: normal bowel sounds Skin General skin exam: abnormal elasticity (Tobacco elastosis) and turgor normal Lesions: no lesions Neuro General: patient alert, patient awake, patient oriented x3, moves all extremities and CN's II-XI intact bilaterally Course Vital Signs Vital signs: Vital Signs Temperature 37.7 C H 06/17/25 04:41 Pulse 110 H 06/17/25 04:41 Respiratory Rate 16 06/17/25 04:41 Blood Pressure 237/131 H 06/17/25 04:41 Pulse Oximetry 94 06/17/25 04:41 Temperature 37.7 C H 06/17/25 04:41 Temperature Source Temporal Artery Scan 06/17/25 04:41 Pulse 110 H 06/17/25 04:41 Respiratory Rate 16 06/17/25 04:41 Blood Pressure 237/131 H 06/17/25 04:41 Blood Pressure Position Sitting 06/17/25 04:41 Pulse Oximetry 94 06/17/25 04:41 Oxygen Delivery Method Room Air 06/17/25 04:41 Oxygen Flow Rate 0 06/17/25 04:41 Pain Level 8 06/17/25 04:41 Medical Decision Making The patient was seen and examined. He points to a well-healed chronic scar in the right upper quadrant as the area, right lateral abdominal wall, or right upper quadrant. There is not appear to be Figueroa sign present. The patient has normal bowel sounds. He does have an intermittent, wet, bronchospastic cough but denies shortness of breath or fevers. The patient denies any associated gastrointestinal symptoms. Given that the patient has had multiple abscesses on the variety of different areas of his body, I did ultimately elect to obtain a CT scan of the abdomen and pelvis to better assess him for intra-abdominal pathologies. The patient also laboratories to evaluate him for biliary pathology such as gallbladder disease or pancreatitis. Disposition depends on discovery of pathology and improvement with symptoms here in the emergency room. PFSH All Active Problems (Updated 01/16/25 @ 09:44 by Natali Hurst) New persistent daily headache (Acute) Infected sebaceous cyst of skin (Acute) Type II diabetes mellitus (Acute) Cellulitis of chest wall (Acute) Substance abuse (Acute) Community acquired pneumonia (Acute) Medical History (Updated 01/16/25 @ 09:44 by Natali Hurst) Hematuria Depression, major, recurrent Decreased visual acuity Constipation Edema Boil of upper extremity Orthopnea Elevated LFTs History of TIAs Disturbance in speech Dysphasia Neuropathic pain Abscess of axilla, left Cough Lung nodule Abscess of chest wall Ear disorder Migraine Smoker CVA (cerebrovascular accident) HTN (hypertension) PTSD (post-traumatic stress disorder) Hyperlipidemia Other injury of chest wall Panic disorder Radiculopathy affecting upper extremity Obesity Repetitive strain injury of shoulder Gingivitis Spinal cord injuries Anxiety Cervicalgia Preventative health care Encounter for smoking cessation counseling Surgical History S/P shoulder replacement S/P cervical spinal fusion Social History Smoking/Tobacco Use Status: Current every day Tobacco Type: cigarettes Smoking risk assessment performed?: Yes Alcohol Intake: former Drug use: Occasionally Substance use type: marijuana and crack/cocaine Details: crack use 5-6 days ago Housing: house Do you feel safe at home: Yes Do you feel safe in your relationship?: Yes
[2025-06-17 05:40] LABS: Abs Immature Grans 0.11 10^3/uL (0.0-0.06); HCT 47.8 % (40.0-50.0); HGB 15.5 g/dL (13.5-17.5); Immature Grans % 0.5 %; MCH 24.1 pg (27.0-33.0); MCHC 32.4 % (32.0-36.0); MCV 74 fL (80-95); MPV 10.2 fL (8.0-11.0); Platelet Count 274 10^3/uL (130-400); RBC 6.44 10^6/uL (4.36-5.78); RDW 13.3 % (11.8-14.1); RDW-SD 34.4 fL; WBC 20.32 10^3/uL (4.4-10.8)
[2025-06-17] MEDS: Ketorolac 15 MG/ML VIAL IVP (05:45)
[2025-06-17] MEDS: Ondansetron 4 MG/2 ML VIAL IVP (05:45)
[2025-06-17] MEDS: MORPHine 10 MG/ML VIAL 6 MG IVP (05:46)
[2025-06-17 05:57] VITALS: BP 171/96; PULSE 96; RESP 16; O2SAT 94
[2025-06-17 05:58] LABS: Microcytosis 1+
[2025-06-17 06:03] LABS: ALT 18 U/L (16-63); AST 12 U/L (15-37); Albumin 3.1 g/dL (3.4-5.0); Alkaline Phosphatase 114 U/L (46-116); Anion Gap 11.0 mmol/L (3-11); BUN 14 mg/dL (7-18); Bilirubin, Total 0.7 mg/dL (0.2-1.0); CO2 24.0 mmol/L (21.0-32.0); Calcium 9.0 mg/dL (8.5-10.1); Chloride 100 mmol/L (98-107); Estimated GFR 86.70 (mL/min/1.73m2); Glucose 217 mg/dL (74-106); Lipase 16 U/L (<78); Magnesium 2.1 mg/dL (1.8-2.4); Potassium 4.1 mmol/L (3.5-5.1); Sodium 135 mmol/L (136-145); Total Protein 8.2 g/dL (6.4-8.2); Troponin I 19 ng/L (<or=76)
[2025-06-17] MEDS: Omnipaque 350 MG/ML 100 ML BTL IJ (06:35)
[2025-06-17] MEDS: Normal Saline - Diluent 50 ML VIAL IJ (06:36)
[2025-06-17] MEDS: Normal Saline Flush 10 ML SYR IVP (06:36)
[2025-06-17 07:15] LABS: Troponin I 18 ng/L (<or=76)
--- NOTE | 2025-06-17 08:09 | DI.VRAD_ITS ---
PROCEDURE INFORMATION: Exam: CT Abdomen And Pelvis With Contrast Exam date and time: 06/17/2025 6:42 AM Age: 59 years old Clinical indication: Localized; Right upper quadrant (ruq); Ruq abdominal pain, prior abscess in location TECHNIQUE: Imaging protocol: Computed tomography of the abdomen and pelvis with contrast. Radiation optimization: All CT scans at this facility use at least one of these dose optimization techniques: automated exposure control; mA and/or kV adjustment per patient size (includes targeted exams where dose is matched to clinical indication); or iterative reconstruction. Contrast material: OMNIPAQUE 350; Contrast volume: 100 ml; Contrast route: INTRAVENOUS (IV); COMPARISON: CT ABDOMEN PELVIS WO 12/08/2024 2:32 PM FINDINGS: Lungs: There are increasingly extensive tree-in-bud opacities in the basilar right lower lobe. Liver: Normal. No mass. Gallbladder and biliary ducts: The gallbladder again contains a stone. Pancreas: Normal. No ductal dilation. Spleen: Normal. No splenomegaly. Adrenal glands: Normal. No mass. Kidneys and ureters: The right kidney appears unremarkable. Left kidney contains a subcentimeter hypodense lesion, too small to characterize, but homogeneous and not requiring follow-up. It appears otherwise unremarkable. Stomach and bowel: The unopacified small bowel is not significantly distended to suggest obstruction. The large bowel is grossly unremarkable in appearance. Appendix: The appendix appears normal. Intraperitoneal space: No free air or significant free fluid. Vasculature: The abdominal aorta is nonaneurysmal. Atherosclerotic vascular calcifications are again present. Lymph nodes: Unremarkable. No enlarged lymph nodes. Urinary bladder: Unremarkable. Reproductive: Unremarkable as visualized. Bones/joints: Degenerative changes again involve the spine and hips. There is again ankylosis of the sacroiliac joints. Soft tissues: Similar small fat containing umbilical and bilateral inguinal hernias. IMPRESSION: 1. Cholelithiasis, as on 12/08/2024. 2. Increasingly extensive tree-in-bud opacities in the basilar right lower lobe, could be infectious or inflammatory. 3. Other similar nonemergent findings as described. Dictated and Authenticated by: Kyle Virk MD. Orderin Omar Salgado MD
--- NOTE | 2025-06-17 08:23 | ED.PROG_ITS ---
Date of service: 06/17/25 Time of Service: 08:23 Medical Decision Making I received signout on this 59-year-old male with right upper quadrant pain pending CT reading. Working diagnosis is cholelithiasis based on dependent stones in GB on CT without overt LFT elevation. 8:[address] scan patient was found to have cholelithiasis without evidence of acute cholecystitis. He did have some right upper quadrant tenderness show will obtain formal right upper quadrant ultrasound radiology. He also has pain with coughing and CT scan showing increased amount of tree-in-bud infiltrate in right lower lobe. He is not hypoxic. Patient has a [id number] history of tobacco use. 10:09 AM Patient had a right upper quadrant formal radiology ultrasound that was not consistent with acute cholecystitis. I was in touch with Dr. Johnson from pulmonology and obtained a chest x-ray which showed subtle increasing infiltrate in right lower lobe for which I treated with doxycycline and amoxicillin. Patient had outpatient pulmonology follow-up in 1 to 2 weeks. We discussed return indications including any shortness of breath chest pain or inability tolerate antibiotics. Patient understood return indications. Discharged with empiric trial of expectant outpatient management. Discharge Plan Disposition Patient Disposition: Home Discharge Details Clinical Impression: Right lower lobe pneumonia Primary Care Provider: Candy Ferrari ED Provider: Shoaib Sandhu [employer] Meds and New Rx's Prescriptions: New doxycycline hyclate 100 mg capsule 100 mg PO BID Qty: 10 0RF amoxicillin 500 mg capsule 500 mg PO BID Qty: 10 0RF Continued trazodone 50 mg tablet 50 - 100 mg PO HS PRN PRN albuterol sulfate [ProAir HFA] 90 mcg/actuation HFA aerosol inhaler 2 puff IH .COMPLEX PRN Patient Comments: 2 puff IH before exercise as needed PRN; Rx Instructions: 2 puff IH before exercise as needed PRN; methadone 5 mg/5 mL solution 115 mg PO DAILY topiramate [Topamax] 25 mg tablet 25 mg PO QHS Qty: 30 3RF lorazepam 0.5 mg tablet 0.5 mg PO DAILY PRN (Reason: anxiety) Qty: 2 0RF Rx Instructions: Take one tab 20-30 min before MRI. Repeat after 30 min if needed. amlodipine 5 mg tablet 10 mg PO DAILY rosuvastatin [Crestor] 20 mg tablet 20 mg PO DAILY metformin 500 mg tablet extended release 24 hr 1,000 mg PO DAILY Patient Comments: TAKE 1 TABLET BY MOUTH EVERY DAY atenolol 50 MG tablet 50 mg PO DAILY hydrochlorothiazide 25 mg tablet 25 mg PO DAILY Patient Comments: TAKE 1/2 TABLET BY MOUTH DAILY FOR 1 TO 2 WEEKS THEN INCREASE TO 1 TABLET DAILY venlafaxine 150 mg capsule,extended release 24hr 150 mg PO DAILY Patient Comments: TAKE 1 CAPSULE BY MOUTH DAILY (DME) lancets [OneTouch UltraSoft Lancets] [facility] MISCELLANEOUS Rx Instructions: USE ONCE DAILY (DME) OneTouch Verio test strips Strip MISCELLANEOUS Rx Instructions: TEST DAILY (DME) blood-glucose meter [RingDNATouch UltraMini] Kit MISCELLANEOUS gabapentin 300 mg capsule 900 mg PO BID Patient Comments: TAKE 3 CAPSULES BY MOUTH TWICE DAILY Discharge Instructions Instructions: Community-Acquired Pneumonia, Adult (DC) Additional Instructions: You are seen in the emergency department for your right-sided lower chest and abdominal pain. Your CAT scan showed signs of a pneumonia for which you are receiving antibiotics that you should take as directed. Please return to the emergency department if you develop increasing shortness of breath any recurrent chest pain or have any other concerns. Please follow-up with your primary care provider as your blood pressure was quite high in the emergency department. The pulmonology team will call you for follow-up in the next 1 to 2 weeks. Referrals: Keyshawn Johnson MD [ [facility] STAFF PHYSICIAN, Pulmonology]
--- NOTE | 2025-06-17 08:30 | DI.US_ITS ---
Exam(s) US ABDOMEN LIMITED EXAM: US ABDOMEN LIMITED CLINICAL HISTORY: Right upper quadrant pain TECHNIQUE: Ultrasound abdomen performed using standard protocol. COMPARISON: US US LOWER EXTREMITY VENOUS LT from 01/24/2025 FINDINGS: There is no ascites evident. LIVER: Enlarged measuring 21 cm and hyperechoic indicating fatty change- steatosis. There no discrete focal hepatic lesions evident. GALLBLADDER/BILIARY: Shadowing gallstones noted. No gallbladder wall edema. The common hepatic duct isnot dilated, measuring 3-4mm at the level of leigha hepatis. PANCREAS: There is no evidence of pancreatic mass nor dilatation of the pancreatic duct. RIGHT KIDNEY:No evidence of solid mass, calculus, nor hydronephrosis. No cortical cysts evident. IMPRESSION: 1. Cholelithiasis. No evidence of obvious acute cholecystitis in the patient was apparently not tender over the gallbladder during scanning today. 2. Hepatomegaly and hepatic steatosis. No discrete focal hepatic lesions. 3. There is no ascites. DATA REPOSITORY:
--- NOTE | 2025-06-17 09:00 | DI.RAD_ITS ---
Exam(s) XR CHEST 2V PA LATERAL EXAM: XR CHEST 2V PA LATERAL CLINICAL HISTORY: Right lower chest discomfort. TECHNIQUE: 2D digital imaging was performed. COMPARISON: CR XR CHEST 2V PA LATERAL from 10/05/2023 FINDINGS: 2 views: Fusion hardware in the lower cervical spine again noted. Heart size is normal. The mediastinum is not widened. There is some linear scarring in the left upper lobe, not previously present in September 2023. There is subtle infiltrate in the right lower lobe. There are no obvious pleural effusions IMPRESSION: Subtle increasing infiltrate in the right lower lobe. Scarring in the left upper lobe. There are no pleural effusions. DATA REPOSITORY: RADIATION DOSE DELIVERED:
[2025-06-17] MEDS: Amoxicillin 500 MG CAP PO (10:16)
[2025-06-17] MEDS: Doxycycline Hyclate 100 MG CAP PO (10:16)
[2025-06-17 10:19] VITALS: BP 206/127; PULSE 93; RESP 15; O2SAT 96
== END 2025-06-17 10:27 | disposition home or self-care (01) ==
PROVIDERS: Emergency Medicine Emergency Medical Services; Emergency Provider Emergency Medicine; PCP Physician Assistant Medical
DX: J18.9 Pneumonia, unspecified organism (principal); R10.11 Right upper quadrant pain; R50.9 Fever, unspecified; I10 Essential (primary) hypertension; Z72.0 Tobacco use
CPT/HCPCS: 99284; 99285; 96374; 96375; 36415; 123; 80053; 83690; 93005; 00123; 71046; 74177; 76705; 83735; 84484; 85025; 93010; J1885; J2270; J2405; J3490

== ENCOUNTER 2025-07-09 00:20 | Outpatient (CLI) | payer MEDICAID, SELFPAY ==
--- NOTE | 2025-07-09 | DI.RAD_ITS ---
Exam(s) XR CHEST 2V PA LATERAL EXAM: XR CHEST 2V PA LATERAL CLINICAL HISTORY: PNEUMONIA OF R LOWER LOBE DUE TO INFECTIOUS ORGANISM, J18.9 TECHNIQUE: 2D digital imaging was performed of the chest. Two images were obtained. PA and lateral views were obtained. COMPARISON: CR XR CHEST 2V PA LATERAL from 08/24/2019 CR XR CHEST 2V PA LATERAL from 10/05/[address] CHEST LUNG CANCER SCREEN from 09/06/2024 CR XR CHEST 2V PA LATERAL from 06/17/2025 FINDINGS: MEDIASTINUM: Normal. HEART: Normal. PULMONARY VASCULATURE: Normal. LUNGS: There is again seen scarring in the left hemithorax. There are no focal consolidating infiltrates. The lungs are hyperinflated suggesting underlying COPD. PLEURAL SPACE: No pleural effusion or pneumothorax. BONE:Within normal limits for the patient's age. OTHER FINDINGS:Normal. IMPRESSION: No acute pulmonary findings. DATA REPOSITORY: RADIATION DOSE DELIVERED:
== END 2025-07-09 00:40 ==
LOC: DI 00:20
PROVIDERS: PCP Physician Assistant Medical; Visit Provider Physician Assistant Medical
DX: J18.9 Pneumonia, unspecified organism (principal)
CPT/HCPCS: 71046

== ENCOUNTER 2025-09-04 14:51 | Outpatient (REF) | payer MEDICAID, SELFPAY ==
[2025-09-04 16:33] LABS: HCT 49.3 % (40.0-50.0); HGB 15.7 g/dL (13.5-17.5); MCH 24.6 pg (27.0-33.0); MCHC 31.8 % (32.0-36.0); MCV 77 fL (80-95); MPV 11.2 fL (8.0-11.0); Platelet Count 232 10^3/uL (130-400); RBC 6.37 10^6/uL (4.36-5.78); RDW 13.6 % (11.8-14.1); RDW-SD 37.9 fL; WBC 10.51 10^3/uL (4.4-10.8)
[2025-09-04 16:49] LABS: ALT 28 U/L (10-49); AST 22 U/L (<34); Albumin 4.5 g/dL (3.2-5.0); Alkaline Phosphatase 105 U/L (46-116); Anion Gap 10.7 mmol/L (3-11); BUN 18 mg/dL (9-23); Bilirubin, Total 0.9 mg/dL (0.2-1.2); CO2 25.3 mmol/L (20.0-31.0); Calcium 8.9 mg/dL (8.3-10.6); Chloride 108 mmol/L (98-107); Cholesterol 209 mg/dL (<200); Glucose 111 mg/dL (74-106); HDL Cholesterol 55 mg/dL (>or=40); Potassium 4.5 mmol/L (3.5-5.1); Sodium 144 mmol/L (136-145); Total Protein 7.3 g/dL (5.7-8.2)
[2025-09-04 17:50] LABS: Microalb ug/mg Crea 47.4 ug/mg Cr
== END 2025-09-04 14:52 | disposition home or self-care (01) ==
LOC: NCHCN 14:51
PROVIDERS: PCP Physician Assistant Medical; Visit Provider Physician Assistant Medical
DX: E11.9 Type 2 diabetes mellitus without complications (principal); E78.5 Hyperlipidemia, unspecified; J18.9 Pneumonia, unspecified organism
CPT/HCPCS: 80053; 80061; 85027; 82043; 82570